=== PATIENT | female | born 1965 | race Caucasian/White ===

== ENCOUNTER 2017-09-15 01:51 | Emergency (ER) | payer OTHER, BC, SELFPAY | END 2017-09-15 03:19 | disposition home or self-care (01) | PROVIDERS: Emergency Provider Emergency Medicine; Visit Provider Emergency Medicine | DX: S01.01XA Laceration without foreign body of scalp, initial encounter (principal); E78.5 Hyperlipidemia, unspecified; W22.09XA Striking against other stationary object, initial encounter; Y93.89 Activity, other specified; Y92.59 Other trade areas as the place of occurrence of the external cause; Y99.0 Civilian activity done for income or pay; Z23 Encounter for immunization; Z79.899 Other long term (current) drug therapy | CPT/HCPCS: 12001; 70450; 90471; 90715; 96372; 99282 ==

== ENCOUNTER → 2017-09-22 | Emergency (ER) | payer OTHER, BC, SELFPAY | PROVIDERS: Emergency Provider Nurse Practitioner; Family Provider Nurse Practitioner; Visit Provider Nurse Practitioner | DX: S01.01XD Laceration without foreign body of scalp, subsequent encounter (principal) ==

== ENCOUNTER → 2017-10-06 08:07 | Outpatient (POV) | payer BC, SELFPAY | PROVIDERS: Family Provider Nurse Practitioner; Visit Provider Dermatology | DX: Z00.00 Encounter for general adult medical examination without abnormal findings (principal) ==

== ENCOUNTER → 2018-03-08 13:35 | Outpatient (CLI) | payer BC, SELFPAY ==
[2018-03-08 14:19] LABS: Basophils # 0.1 K/mm3 (0-0.2); Basophils % 0.6 % (0.1-2.0); Eosinophils # 0.1 K/mm3 (0.0-0.4); Eosinophils % 1.5 % (0.1-12.0); Hematocrit 44.7 % (37.0-47.0); Hemoglobin 14.7 g/dL (12.2-16.2); Lymphocytes # 2.6 K/mm3 (0.7-4.5); Lymphocytes % 35.8 K/mm3 (10-50); Mean Corpuscular HGB Conc 32.9 g/dL (31.8-35.4); Mean Corpuscular Hemoglobin 27.8 pg (27.0-31.2); Mean Corpuscular Volume 84.3 fl (81-99); Mean Platelet Volume 7.3 fl (7.4-10.4); Monocytes # 0.4 K/mm3 (0.1-1.0); Monocytes % 5.4 % (1.7-9.3); Neutrophils # 4.1 K/mm3 (1.8-7.8); Neutrophils % 56.7 % (37.0-80.0); Platelet Count 263 K/mm3 (142-424); Red Cell Distribution Width 12.8 % (11.5-17.5); White Blood Count 7.3 K/mm3 (4.8-10.8)
[2018-03-08 14:56] LABS: Alanine Aminotransferase 29 U/L (12-78); Albumin Level 4.2 gm/dL (3.4-5.0); Albumin/Globulin Ratio 1.1 (1.1-1.8); Alkaline Phosphatase 68 U/L (46-116); Anion Gap 16.2 mEq/L (5-15); Aspartate Amino Transferase 14 U/L (15-37); Blood Urea Nitrogen 15 mg/dL (7-18); Calcium 9.8 mg/dL (8.5-10.1); Carbon Dioxide 26 mmol/L (21.0-32.0); Chloride 102 mmol/L (98-107); Chol/HDL Ratio 7.2 (1-3.5); Cholesterol 267 mg/dL (140-200); Creatinine,Serum 0.68 mg/dL (0.55-1.02); Estimated Glomerular Filt Rate 91 ml/min (>60); GFR (African American) 110 ML/MIN (>60); Globulin 3.7 gm/dl (1.3-3.2); Glucose 115 mg/dL (74-106); HDL Cholesterol 37 mg/dL (29-89); Potassium 4.2 mmoL/L (3.5-5.1); Sodium 140 mmol/L (136-145); Total Protein,Serum 7.9 gm/dL (6.4-8.2)
[2018-03-08 14:59] LABS: Triglycerides 420 mg/dL (30-200)
== END ==
PROVIDERS: Visit Provider Dermatology
DX: L40.0 Psoriasis vulgaris (principal); Z79.899 Other long term (current) drug therapy
CPT/HCPCS: 36415; 80053; 80061; 85025; 86480

== ENCOUNTER → 2018-04-06 08:31 | Outpatient (POV) | payer BC, SELFPAY | PROVIDERS: Family Provider Nurse Practitioner; Visit Provider Dermatology | DX: Z00.00 Encounter for general adult medical examination without abnormal findings (principal) ==

== ENCOUNTER → 2018-10-10 08:27 | Outpatient (POV) | payer BC, SELFPAY | PROVIDERS: Visit Provider Dermatology | DX: Z00.00 Encounter for general adult medical examination without abnormal findings (principal) ==

== ENCOUNTER → 2018-10-19 10:38 | Outpatient (CLI) | payer BC, SELFPAY ==
--- NOTE | 2018-10-19 11:02 | XR_ITS ---
XR hand LT min 3V HISTORY: Pain ITS.REASON: OT HAND JOINT PAIN ORDERING PHYSICIAN: Ernestine Mcelroy PATIENT AGE: 53 years COMPARISON: None FINDINGS: No fracture or dislocation. No lytic or blastic change. There is normal mineralization.. There are mild osteoarthritic changes of the DIP joint of the second through fifth digits. No bony destructive process evident. IMPRESSION: Mild osteoarthritis of the DIP joints of the second through fifth digits
== END ==
PROVIDERS: PCP Nurse Practitioner Family; Visit Provider Nurse Practitioner Family
DX: M25.542 Pain in joints of left hand (principal); M25.541 Pain in joints of right hand; L40.9 Psoriasis, unspecified
CPT/HCPCS: 73130

== ENCOUNTER → 2018-11-06 08:53 | Outpatient (CLI) | payer BC, SELFPAY ==
--- NOTE | 2018-11-06 09:02 | XR_ITS ---
XR wrist RT min 3V HISTORY ITS.REASON: RT WRIST PAIN ORDERING PHYSICIAN: Ernestine Mcelroy PATIENT AGE: 53 years Comparison: None FINDINGS: No fracture or dislocation. No lytic or blastic change. There is normal mineralization.. The joint spaces are well-preserved. No significant degenerative/arthritic changes. No erosive changes evident.. IMPRESSION: Negative wrist
== END ==
PROVIDERS: PCP Nurse Practitioner Family; Visit Provider Nurse Practitioner Family
DX: M25.531 Pain in right wrist (principal)
CPT/HCPCS: 73110

== ENCOUNTER → 2019-04-12 10:21 | Outpatient (CLI) | payer BC, SELFPAY ==
[2019-04-12 11:06] LABS: Basophils # 0.1 K/mm3 (0-0.2); Basophils % 0.6 % (0.1-2.0); Eosinophils # 0.1 K/mm3 (0.0-0.4); Eosinophils % 1.6 % (0.1-12.0); Hematocrit 43.3 % (37.0-47.0); Hemoglobin 13.5 g/dL (12.2-16.2); Lymphocytes # 2.3 K/mm3 (0.7-4.5); Lymphocytes % 29.1 % (10-50); Mean Corpuscular HGB Conc 31.2 g/dL (31.8-35.4); Mean Corpuscular Hemoglobin 27.7 pg (27.0-31.2); Mean Platelet Volume 7.3 fl (7.4-10.4); Monocytes # 0.4 K/mm3 (0.1-1.0); Monocytes % 5.3 % (1.7-9.3); Neutrophils # 4.9 K/mm3 (1.8-7.8); Neutrophils % 63.4 % (37.0-80.0); Platelet Count 317 K/mm3 (142-424); Red Blood Count 4.87 M/mm3 (4.20-5.40); Red Cell Distribution Width 13.9 % (11.5-17.5); White Blood Count 7.7 K/mm3 (4.8-10.8)
[2019-04-12 12:15] LABS: Alanine Aminotransferase 35 U/L (12-78); Albumin Level 3.8 gm/dL (3.4-5.0); Albumin/Globulin Ratio 1.1 (1.1-1.8); Alkaline Phosphatase 63 U/L (46-116); Anion Gap 15.5 mEq/L (5-15); Aspartate Amino Transferase 27 U/L (15-37); Bilirubin,Total 0.8 mg/dL (0.2-1.0); Blood Urea Nitrogen 12 mg/dL (7-18); Calcium 9.6 mg/dL (8.5-10.1); Carbon Dioxide 25 mmol/L (21.0-32.0); Chloride 102 mmol/L (98-107); Chol/HDL Ratio 6.5 (1-3.5); Cholesterol 272 mg/dL (140-200); Creatinine,Serum 0.69 mg/dL (0.55-1.02); Estimated Glomerular Filt Rate 89 ml/min (>60); GFR (African American) 107 ML/MIN (>60); Globulin 3.5 gm/dl (1.3-3.2); Glucose 135 mg/dL (74-106); HDL Cholesterol 42 mg/dL (29-89); LDL Cholesterol 170 mg/dL (0-130); Potassium 4.5 mmoL/L (3.5-5.1); Sodium 138 mmol/L (136-145); Total Protein,Serum 7.3 gm/dL (6.4-8.2); Triglycerides 302 mg/dL (30-200); VLDL Cholesterol 60 mg/dL (0-40)
[2019-04-17 12:56] LABS: QuantiFERON-TB Gold Plus Negative (Negative)
== END ==
PROVIDERS: Visit Provider Dermatology
DX: L40.0 Psoriasis vulgaris (principal); Z79.899 Other long term (current) drug therapy
CPT/HCPCS: 36415; 80053; 80061; 85025; 86480

== ENCOUNTER → 2019-05-02 14:48 | Outpatient (CLI) | payer BC, SELFPAY ==
[2019-05-02 16:06] VITALS: BMI 38.4
== END ==
PROVIDERS: PCP Nurse Practitioner Family; Visit Provider Nurse Practitioner Family
DX: Z71.3 Dietary counseling and surveillance (principal); E11.9 Type 2 diabetes mellitus without complications
CPT/HCPCS: 97802

== ENCOUNTER → 2019-05-28 11:05 | Outpatient (CLI) | payer BC, SELFPAY ==
--- NOTE | 2019-05-28 11:23 | XR_ITS ---
PROCEDURE: XR HAND RT MIN 3V CLINICAL INDICATION: SWELLING OF FINGER RT HAND, HX OSTEOMYELITIS COMPARISON: [id number] XR hand LT min 3V from 10/19/2018 WRISTCMRT XR wrist RT min 3V from 11/06/2018 FINDINGS: No fracture or dislocation. No lytic or blastic change. There is normal mineralization. There are minor osteoarthritic changes of the 2nd through 5th DIP joints Other findings:None. IMPRESSION: Moderate osteoarthritis of the DIP joints of the digits, no acute finding Dictated by: Barrett Martinez MD 05/28/2019 11:57 Signed by: <Electronically signed by Barrett Martinez MD in [place]> 05/28/2019 11:57
[2019-05-28 11:37] LABS: Basophils % 0.5 % (0.1-2.0); Eosinophils # 0.1 K/mm3 (0.0-0.4); Eosinophils % 0.9 % (0.1-12.0); Hematocrit 38.3 % (37.0-47.0); Hemoglobin 12.4 g/dL (12.2-16.2); Lymphocytes # 2.4 K/mm3 (0.7-4.5); Lymphocytes % 32.6 % (10-50); Mean Corpuscular HGB Conc 32.5 g/dL (31.8-35.4); Mean Corpuscular Hemoglobin 27.7 pg (27.0-31.2); Mean Corpuscular Volume 85.4 fl (81-99); Mean Platelet Volume 6.7 fl (7.4-10.4); Monocytes # 0.4 K/mm3 (0.1-1.0); Monocytes % 4.7 % (1.7-9.3); Neutrophils # 4.6 K/mm3 (1.8-7.8); Neutrophils % 61.3 % (37.0-80.0); Platelet Count 289 K/mm3 (142-424); Red Blood Count 4.49 M/mm3 (4.20-5.40); Red Cell Distribution Width 13.3 % (11.5-17.5); White Blood Count 7.5 K/mm3 (4.8-10.8)
== END ==
PROVIDERS: PCP Nurse Practitioner Family; Visit Provider Nurse Practitioner Family
DX: M25.441 Effusion, right hand (principal); Z87.39 Personal history of other diseases of the musculoskeletal system and connective tissue
CPT/HCPCS: 36415; 73130; 85025

== ENCOUNTER → 2019-10-10 12:42 | Outpatient (CLI) | payer BC, SELFPAY ==
--- NOTE | 2019-10-10 12:53 | US_ITS ---
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 Welding: Polina Shell RVT Indications Claudication: Bilaterally Rest Pain: Bilaterally Numbness/Tingling Edema DECREASED PULSES SHEEBA Risk Factors Hyperlipidemia Diabetes History of Smoking Pressures/Indices Right Indices Left Indices Brachial 176.00 mmHg Brachial 193.00 mmHg Low Thigh 185.00 mmHg 0.96 Low Thigh 191.00 mmHg 0.99 Calf 207.00 mmHg 1.07 Calf 193.00 mmHg 1.00 Ankle(PT) 201.00 mmHg 1.04 Ankle(PT) 211.00 mmHg 1.09 Ankle(DP) 186.00 mmHg 0.96 Ankle(DP) 195.00 mmHg 1.01 Digit 132.00 mmHg 0.68 Digit 126.00 mmHg 0.65 Findings RT LAURIE:1.04 LT LAURIE:1.09 RT TBI:0.68 LT TBI:0.65 NORMAL PULSES BILATERAL NORMAL WAVEFORMS BILATERAL Conclusion No evidence significant arterial disease throughout the right and left lower extremities as evidenced by normal resting PVR waveforms and normal resting indices. Electronically signed by : Barrett Martinez MD 10/10/2019 17:16:54
== END ==
PROVIDERS: PCP Nurse Practitioner Family; Visit Provider Nurse Practitioner Family
DX: R09.89 Other specified symptoms and signs involving the circulatory and respiratory systems (principal)
CPT/HCPCS: 93923

== ENCOUNTER → 2019-10-16 08:08 | Outpatient (POV) | payer BC, SELFPAY | PROVIDERS: Visit Provider Dermatology | DX: Z00.00 Encounter for general adult medical examination without abnormal findings (principal) ==

== ENCOUNTER → 2020-01-10 07:56 | Outpatient (CLI) | payer BC, SELFPAY ==
--- NOTE | 2020-01-10 07:58 | US_ITS ---
PROCEDURE: US LIVER CLINICAL INDICATION: ELEVATED LIVER FUNCTION COMPARISON: No exams were available for comparison FINDINGS: PANCREAS: Of the pancreas is poorly demonstrated as there was difficulty penetrating the hyperechoic liver. CT may provide further evaluation LIVER: The liver is enlarged with increased echogenicity. There is poor definition of the liver due to the hyperechogenicity. This would suggest diffuse fatty liver infiltration. RIGHT KIDNEY: There is cortical scarring of the right kidney. No hydronephrosis. GALLBLADDER: Prior cholecystectomy. Common bile duct is normal at 4 mm. IMPRESSION: There is diffuse increased echogenicity of an enlarged liver consistent with hepatic steatosis with a pattern megaly. The pancreas is poorly demonstrated. Consider CT without and with contrast for further evaluation. Dictated by: Barrett Martinez MD 01/10/2020 17:14 Electronically signed by Barrett Martinez MD in [place] 01/10/2020 17:14
== END ==
PROVIDERS: PCP Nurse Practitioner Family; Visit Provider Nurse Practitioner Family
DX: R74.8 Abnormal levels of other serum enzymes (principal)
CPT/HCPCS: 76705

== ENCOUNTER → 2020-01-17 09:29 | Outpatient (CLI) | payer BC, SELFPAY ==
--- NOTE | 2020-01-17 09:47 | CT_ITS ---
PROCEDURE: CT ABDOMEN WO/W CON CLINICAL HISTORY: HEPATOMEGLY Abnormal liver function tests, abnormal ultrasound COMPARISON: No exams were available for comparison TECHNIQUE: 75 mL Optiray 350. Study is performed without and with contrast with hemangioma protocol Axial images obtained with sagittal and coronal reformats. All CT scans at the facility use one or more dose reduction, viz: automated exposure control, ma/kV adjustment per patient size (including targeted exams where dose is matched to indication, i.e. head), or iterative reconstruction technique. FINDINGS: Lung bases clear. There is diffuse hepatic steatosis with an enlarged liver which measures 23 cm cephalad caudad and 23 cm AP. There has been a prior cholecystectomy. No focal liver lesion is evident. The spleen, adrenal glands, and pancreas have an unremarkable appearance. Unenhanced images show no evidence of renal or ureteral calculi. No renal mass or perinephric fluid collection. There is some mild cortical scarring of the right kidney. No intestinal obstruction or free air. No acute bony abnormalities of the visualized bony elements. The pelvis was not included on the exam. There are atherosclerotic changes involving the aorta. There is high-grade stenosis at the ostium of the celiac artery. The definite degree of narrowing is not readily discernible on this non angiographic study but felt to be greater than 50 percent. IMPRESSION: 1. Hepatomegaly with hepatic steatosis. 2. 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 Mild cortical scarring of the right kidney Dictated by: Barrett Martinez MD 01/18/2020 08:53 Electronically signed by Barrett Martinez MD in [place] 01/18/2020 08:53
[2020-01-17 10:01] LABS: Blood Urea Nitrogen 12 mg/dl (7-17); Estimated Glomerular Filt Rate 87 ml/min (>60); GFR (African American) 105 ML/MIN (>60)
== END ==
PROVIDERS: PCP Nurse Practitioner Family; Visit Provider Nurse Practitioner Family
DX: R16.0 Hepatomegaly, not elsewhere classified (principal)
CPT/HCPCS: 36415; 74170; 82565; 84520; Q9967

== ENCOUNTER → 2020-01-24 10:10 | Outpatient (CLI) | payer BC, SELFPAY ==
--- NOTE | 2020-01-24 10:15 | CT_ITS ---
Procedure: CT ANGIO ABDOMEN CLINICAL HISTORY: CELIAC ARTERY STENOSIS Abdominal pain COMPARISON: CT ABDOMEN WO/W CON from 01/17/2020 TECHNIQUE: IV Contrast: 100ml Optiray 350 Axial images obtained with sagittal and coronal reformats. All CT scans at the facility use one or more dose reduction, viz: automated exposure control, ma/kV adjustment per patient size (including targeted exams where dose is matched to indication, i.e. head), or iterative reconstruction technique. FINDINGS: There is high-grade stenosis involving the ostium of the celiac artery. This is short segment and is estimated to be 75%. The superior mesenteric artery has an unremarkable appearance. The inferior mesenteric artery is patent and has an unremarkable appearance. There is a single renal artery to each kidney with no significant stenosis. No evidence of aortic aneurysm or dissection. Scattered calcific plaque is present involving the aorta and iliac vessels but no significant stenosis is apparent. Lung bases are clear. There is hepatomegaly with diffuse hepatic steatosis. Cortical scarring is present involving the right kidney. The spleen, adrenal glands, and pancreas and left kidney has an unremarkable appearance. No intestinal obstruction or free air. No focal inflammatory change. No acute bony anomalies. 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 Hepatomegaly with fatty liver Right renal cortical scarring Dictated by: Barrett Martinez MD 01/26/2020 08:01 Electronically signed by Barrett Martinez MD in [facility] 01/26/2020 08:01
== END ==
PROVIDERS: PCP Nurse Practitioner Family; Visit Provider Nurse Practitioner Family
DX: I77.4 Celiac artery compression syndrome (principal)
CPT/HCPCS: 74175; Q9967

== ENCOUNTER → 2020-06-17 08:06 | Outpatient (POV) | payer BC, SELFPAY ==
[2020-06-21 18:11] LABS: QuantiFERON-TB Gold Plus Negative (Negative)
== END ==
PROVIDERS: Visit Provider Dermatology
DX: L40.0 Psoriasis vulgaris (principal); Z79.899 Other long term (current) drug therapy
CPT/HCPCS: 36415; 86480

== ENCOUNTER → 2020-09-05 15:03 | Outpatient (CLI) | payer BC, SELFPAY ==
--- NOTE | 2020-09-05 15:08 | XR_ITS ---
PROCEDURE: XR SHOULDER LT MIN 2V CLINICAL INDICATION: INJURY TO LT SHOULDER, INITIAL ENCOUNTER COMPARISON: No exams were available for comparison FINDINGS: No fracture or dislocation. No lytic or blastic change. There is normal mineralization. There are minimal osteoarthritic changes of the left shoulder. Other findings:None. IMPRESSION: Minimal osteoarthritic change of the glenohumeral joint otherwise negative Dictated by: Barrett Martinez MD 09/05/2020 15:17 Barrett Martinez MD in [place] 09/05/2020 15:17
== END ==
PROVIDERS: PCP Nurse Practitioner Family; Visit Provider Nurse Practitioner Family
DX: S49.92XA Unspecified injury of left shoulder and upper arm, initial encounter (principal)
CPT/HCPCS: 73030

== ENCOUNTER → 2020-10-02 09:14 | Outpatient (CLI) | payer BC, SELFPAY ==
--- NOTE | 2020-10-02 09:16 | MR_ITS ---
PROCEDURE: MR SHOULDER LT WO CON CLINICAL INDICATION: DECREASED RANGE OF MOTION, PAIN Pain and decreased range of motion COMPARISON: CR XR SHOULDER LT MIN 2V from 09/05/2020 TECHNIQUE: Routine multiplanar multi echo sequences are performed without gadolinium enhancement. FINDINGS: No evidence of rotator cuff tear. There is slight thickening of the supraspinatus tendon with slight increased T2 signal suggesting tendinopathy/tendinosis. The infraspinatus, subscapularis, and teres minor tendons appear intact. Bicipital tendon is in place although there is some increased T2 signal involving the superior aspect of the bicipital tendon suspicious for a split tear. This signal is linear in nature. Small amount fluid is present in the bicipital tendon sheath. Motion artifact noted on the axial images which somewhat obscures fine detail of the labrum. There is some heterogeneous somewhat irregular signal intensity of the anterior and superior glenoid labrum suspicious for a SLAP tear. In addition, there is increased T2 signal involving the medial aspect of the glenoid labrum suspicious for a bony Bankart lesion. There is a small shoulder joint effusion. There is increased T2 signal involving the humeral head posteriorly consistent with the Hill-Sachs lesion. IMPRESSION: 1. Tendinopathy/tendinosis of the supraspinatus tendon. No evidence of rotator cuff tear. 2. Small shoulder joint effusion with and osseous Bankart lesion along with Hill-Sachs lesion. These findings would suggest a prior anterior shoulder dislocation. There is also irregularity of the superior and anterior glenoid labrum consistent with a SLAP tear. 3. Split tear of the bicipital tendon in the region the bicipital groove. Dictated by: Barrett Martinez MD 10/20/2020 11:40 Barrett Martinez MD in [place] 10/20/2020 11:40
== END ==
PROVIDERS: PCP Nurse Practitioner Family; Visit Provider Nurse Practitioner Family
DX: M25.512 Pain in left shoulder (principal); M25.612 Stiffness of left shoulder, not elsewhere classified; S49.92XD Unspecified injury of left shoulder and upper arm, subsequent encounter
CPT/HCPCS: 73221

== ENCOUNTER 2020-11-12 08:00 | Outpatient (RCR) | payer BC, SELFPAY ==
--- NOTE | 2020-10-08 10:50 | HMH.OTOPEV ---
OT Inpatient Evaluation Rehab OT Outpatient Eval Start: 10/08/20 10:26 Freq: Status: Active Protocol: Document 10/08/20 10:26 [email or web address] (Rec: 10/08/20 10:46 [facility] [id number]) Electronically Signed By Vasile Leija OT 10/08/20 10:26 Outpatient Therapy Subjective History Subjective History Pt is a 55 year old female who reports to therapy for initial evaluation to L shoulder. Pt reports on 08/23 she had a fall and tried to catch herself with both arms resulting in a L shoulder injury. Since fall, pt has had constant pain and decreased AROM/strength at left shoulder. Pt has a past medical history of HTN, Psoriatic AR, Diabetes Type 2, and hyperlipidemia. Pt will continue to be seen twice a week in order to address left shoulder deficits. Chief Complaint Pain,Stiff,Weakness Symptom Type Ache,Throb,Sharp,Dull Symptoms Relieved By Nothing Symptoms Aggravated By Physical Activity,Lifting Prior Functional Limitations None Current Functional Limitations Reaching,Lifting,Housework, Dressing,Driving,Sleeping, Recreation Activity Symptom Description Constant but Variable Level of pain today (0-10) 4 Pain scale - at its best (0-10) 4 Pain scale - at its worst (0-10) 10 Shoulder/Elbow Eval Shoulder Objective Measurements Shoulder ROM Left Shoulder Abduction Active Range of 65 degrees Motion (degrees) Shoulder Flexion Active Range of Motion 105 degrees (degrees) Query Text: Shoulder External Rotation Active Range 55 degrees of Motion (degrees) Shoulder Internal Rotation Active Range 30 degrees of Motion (degrees) pain with active ROM shoulder exam left standard pain with passive ROM shoulder exam left standard decreased ROM shoulder exam standard left Shoulder MMT Shoulder Abduction Strength Grade 3+ Fair+ Shoulder Extension Strength Grade 3- Fair- Shoulder Flexion Strength Grade 4- Good- Shoulder External Rotation Strength 3- Fair- Grade Shoulder Internal Rotation Strength 3- Fair- Grade Shoulder Strength Patient Testing Sitting Position Shoulder Special
== END 2020-11-12 08:05 | disposition home or self-care (01) ==
LOC: OT 08:00
PROVIDERS: PCP Nurse Practitioner Family; Visit Provider Nurse Practitioner Family
DX: M25.612 Stiffness of left shoulder, not elsewhere classified (principal)
CPT/HCPCS: 97014; 97110; 97166; G0283

== ENCOUNTER → 2020-12-29 08:56 | Outpatient (CLI) | payer BC, SELFPAY ==
--- NOTE | 2020-12-29 09:02 | XR_ITS ---
PROCEDURE: XR HAND RT MIN 3V CLINICAL INDICATION: SHEEBA HAND SWELLING COMPARISON: CR [id number] XR hand LT min 3V from 10/19/2018 CR XR HAND RT MIN 3V from 05/28/2019 FINDINGS: No acute fractures or dislocations. Bone density is normal. There is minor juxta-articular osteopenia noted. Minor osteoarthritic changes noted at the metatarsophalangeal joints. There is evidence of minor overhanging margins with the erosions noted at the distal interphalangeal joint, predominantly of the 5th distal interphalangeal joint. Early erosions are noted in the medial aspect of the proximal phalanges. IMPRESSION: Findings are suggestive of arthropathy, predominantly at the 4th and 5th DIP joints. Dictated by: Beba Patel 12/29/2020 17:42 Beba Patel in [place] 12/29/2020 17:42
--- NOTE | 2020-12-29 09:02 | XR_ITS ---
PROCEDURE: XR HAND LT MIN 3V CLINICAL INDICATION: SHEEBA HAND SWELLING COMPARISON: CR [id number] XR hand LT min 3V from 10/19/2018 CR XR HAND RT MIN 3V from 05/28/2019 FINDINGS: No acute fractures or dislocations. There is evidence of loss of joint space, and overhanging margins of the distal interphalangeal joints noted at the 4th, and 5th DIP joints. Bone density is otherwise unremarkable. Possible erosion is noted at the head of the proximal phalanx of the 1st digit. No significant soft tissue abnormality. IMPRESSION: Findings are suggestive of arthropathies. No acute fractures or dislocations. Dictated by: Beba Patel 12/29/2020 17:44 Beba Patel in [place] 12/29/2020 17:44
== END ==
PROVIDERS: PCP Nurse Practitioner Family; Visit Provider Nurse Practitioner Family
DX: M79.642 Pain in left hand (principal); M79.641 Pain in right hand; M79.89 Other specified soft tissue disorders
CPT/HCPCS: 73130

== ENCOUNTER → 2021-02-17 14:52 | Outpatient (CLI) | payer BC, SELFPAY ==
--- NOTE | 2021-02-17 14:57 | CA_ITS ---
APPROVED REPORT Right Lower Extremity Venous Study for DVT. Veterinarian Poultry: Polina Shell RVT Indications Lower Extremity Pain: Right History of Smoking PAIN RT CALF X 1 DAY Vein Imaging CFV (R): compressive, spontaneous, phasic, augmentation FEM (R): compressive, spontaneous, phasic, augmentation POP (R): compressive, spontaneous, phasic, augmentation PTV (R): Compressible GSV (R): Compressible Peroneals (R):Compressible GAS (R): Compressible Findings Study suggests no evidence of DVT of the right lower extremity. Study suggests no evidence of SVT of the right lower extremity. Conclusion Study suggests no evidence of DVT of the right lower extremity. Study suggests no evidence of SVT of the right lower extremity. Critical Notification Physician Notified Date: 02/17/2021 Time: 15:28 Physician Name: Irma Mcelroy's office Electronically signed by : Barrett Martinez MD 02/17/2021 16:29:25
--- NOTE | 2021-02-17 15:22 | XR_ITS ---
PROCEDURE: XR KNEE RT 3V CLINICAL INDICATION: ACUTE PAIN OF RT KNEE, SWELLING OF RT KNEE JOINT COMPARISON: No exams were available for comparison FINDINGS: No fracture or dislocation. No lytic or blastic change. There is normal mineralization. The joint spaces are well-preserved. No significant degenerative/arthritic changes. No erosive changes evident. Other findings:There is increased density in the suprapatellar region which may be related to knee joint effusion. IMPRESSION: Possible knee joint effusion otherwise negative Dictated by: Barrett Martinez MD 02/17/2021 16:03 Barrett Martinez MD in [place] 02/17/2021 16:03
== END ==
PROVIDERS: PCP Nurse Practitioner Family; Visit Provider Nurse Practitioner Family
DX: M79.661 Pain in right lower leg (principal); M79.89 Other specified soft tissue disorders; M25.561 Pain in right knee; M25.461 Effusion, right knee
CPT/HCPCS: 73562; 93971

== ENCOUNTER → 2023-01-12 15:43 | Outpatient (CLI) | payer MEDICARE, BC, SELFPAY ==
--- NOTE | 2023-01-12 15:52 | MM_ITS ---
PROCEDURE INFORMATION: Exam: MG Bilateral Screening 3D Mammography Exam date and time: 01/12/2023 3:48 PM Age: 57 years old Clinical indication: Screening mammogram TECHNIQUE: Imaging protocol: Bilateral Screening tomosynthesis and 2D mammography including computer-aided detection (CAD) when performed. COMPARISON: 1. MG DMSB DIG MAMM-SCREEN SHEEBA 07/24/2015 9:01 AM 2. MG DMSB DIGITAL MAMM-SCREEN BILATERAL 06/12/2010 8:35 AM 3. MG DIGMAMMDX MAMMOGRAM DX-ENGINE SERVICE REPAIRER N/C 06/10/2009 9:13 AM 4. MG DIGMAMMDX MAMMOGRAM DX-ENGINE SERVICE REPAIRER N/C 12/19/2008 9:13 AM FINDINGS: MAMMOGRAPHY: Breast composition: There are scattered areas of fibroglandular density. Mass: None. Architectural distortion: No new or suspicious architectural distortion. Calcifications: Calcifications within the upper outer posterior right breast should be assessed with spot MAGNIFICATION views in CC/ML projection for morphologic characterization. Asymmetric density: No new or suspicious asymmetric density is present Skin thickening: None. Axillary adenopathy: None. IMPRESSION: Calcifications within the upper outer posterior right breast should be assessed with spot MAGNIFICATION views in CC/ML projection for morphologic characterization. ASSESSMENT: BI-RADS category 0: Incomplete-need additional imaging evaluation
== END ==
PROVIDERS: PCP Nurse Practitioner Family; Visit Provider Nurse Practitioner Family
DX: Z12.31 Encounter for screening mammogram for malignant neoplasm of breast (principal)
CPT/HCPCS: 77063; 77067

== ENCOUNTER → 2023-01-21 09:06 | Outpatient (CLI) | payer MEDICARE, BC, SELFPAY ==
--- NOTE | 2023-01-21 09:10 | XR_ITS ---
FINAL REPORT TECHNIQUE: Bone densitometry calculations of the lumbar spine and right hip were obtained. CLINICAL HISTORY: . osteoporosis FINDINGS: DEXA BONE DENSITY AXIAL SKELETON Using L1-4, the bone mineral density of the spine is 0.901 g/cm2, corresponding to T-score of -1.3. Using the right hip, the bone mineral density of the femoral neck is 0.821 g/cm2, corresponding to a T-score of -0.3. NOTE: T-score: Standard deviation compared with peak bone mass of young adult mean. *Following the recommendations of the International Society of Bone densitometry, classification of hip BMD is based on the lower of two T-scores; total hip or femoral neck. IMPRESSION: Diminished bone mineral density of the lumbar spine and right hip consistent with low bone density. FRAX 10 year fracture risk is 0.4% for a hip fracture and 12% for a major osteoporotic fracture. Reviewed, Interpreted and Dictated by Lloyd Braswell III, MD Transcribed by Lindsay De Leon Authenticated and [facility]
== END ==
PROVIDERS: PCP Nurse Practitioner Family; Visit Provider Nurse Practitioner Family
DX: Z78.0 Asymptomatic menopausal state (principal); Z13.820 Encounter for screening for osteoporosis
CPT/HCPCS: 77080

== ENCOUNTER → 2023-02-11 14:11 | Outpatient (CLI) | payer MEDICARE, BC, SELFPAY ==
--- NOTE | 2023-02-11 14:18 | MM_ITS ---
PROCEDURE INFORMATION: Exam: MG Right Diagnostic Breast Tomosynthesis Exam date and time: 02/11/2023 2:21 PM Age: 57 years old Clinical indication: Patient recalled on the basis of a screening mammogram for further evaluation; Right breast; calcifications TECHNIQUE: Imaging protocol: Right Diagnostic tomosynthesis and 2D mammography including computer-aided detection (CAD) when performed. Unilateral or bilateral exam. COMPARISON: 1. MG MM DIG SCREENING MAMM BI W/CAD 01/12/2023 3:48 PM 2. MG DMSB DIG MAMM-SCREEN SHEEBA 07/24/2015 9:01 AM FINDINGS: MAMMOGRAPHY: Digital diagnostic magnification views of the posterior right upper outer quadrant demonstrate a cluster of benign dystrophic calcifications. IMPRESSION: No mammographic evidence of malignancy. Benign calcifications in the right breast.Annual bilateral mammographic screening is recommended unless otherwise clinically indicated. ASSESSMENT: BI-RADS Category 2: Benign
== END ==
PROVIDERS: PCP Nurse Practitioner Family; Visit Provider Nurse Practitioner Family
DX: R92.8 Other abnormal and inconclusive findings on diagnostic imaging of breast (principal)
CPT/HCPCS: 77061; 77065; G0279

== ENCOUNTER → 2023-07-04 12:06 | Outpatient (CLI) | payer MEDICARE, BC, SELFPAY ==
[2023-07-04 11:17] LABS: Basophils % 0.4 % (0.1-2.0); Eosinophils # 0.1 K/mm3 (0.0-0.4); Eosinophils % 0.8 % (0.1-12.0); Hematocrit 38.8 % (37.0-47.0); Hemoglobin 12.7 g/dL (12.2-16.2); Lymphocytes # 3.1 K/mm3 (0.7-4.5); Lymphocytes % 32.6 % (10-50); Mean Corpuscular HGB Conc 32.9 g/dL (31.8-35.4); Mean Corpuscular Hemoglobin 27.6 pg (27.0-31.2); Mean Corpuscular Volume 83.9 fl (81-99); Mean Platelet Volume 9.4 fl (7.4-10.4); Monocytes # 0.5 K/mm3 (0.1-1.0); Monocytes % 5.3 % (1.7-9.3); Neutrophils # 5.8 K/mm3 (1.8-7.8); Neutrophils % 60.8 % (37.0-80.0); Platelet Count 305 K/mm3 (142-424); Red Blood Count 4.62 M/mm3 (4.20-5.40); Red Cell Distribution Width 15.8 % (11.5-17.5); White Blood Count 9.5 K/mm3 (4.8-10.8)
[2023-07-04 12:08] LABS: Hemoglobin A1C 5.5 % (4.0-6.0)
[2023-07-04 13:05] LABS: Chol/HDL Ratio 4.6 (1-3.5); Cholesterol 221 mg/dl (140-200); HDL Cholesterol 48 mg/dl (40-60); Triglycerides 293 mg/dl (30-150); VLDL Cholesterol 59 mg/dL (0-40)
[2023-07-04 13:16] LABS: Direct LDL Cholesterol 109.92 mg/dL (100-129)
[2023-07-04 13:59] LABS: Vitamin B12 726 pg/mL (239-931)
[2023-07-04 16:05] LABS: Ferritin 78.4 ng/ml (11.1-264)
== END ==
PROVIDERS: PCP Nurse Practitioner Family; Visit Provider Nurse Practitioner Family
DX: D50.9 Iron deficiency anemia, unspecified (principal); E11.9 Type 2 diabetes mellitus without complications; E78.5 Hyperlipidemia, unspecified; Z79.84 Long term (current) use of oral hypoglycemic drugs
CPT/HCPCS: 80061; 82607; 82728; 83036; 85025

== ENCOUNTER 2023-10-04 13:48 | Outpatient (CLI) | payer MEDICARE, BC, SELFPAY ==
[2023-10-04 13:43] LABS: Hemoglobin A1C 5.3 % (4.0-6.0)
[2023-10-04 14:11] LABS: Chol/HDL Ratio 5.2 (1-3.5); Cholesterol 243 mg/dl (140-200); HDL Cholesterol 47 mg/dl (40-60); Triglycerides 330 mg/dl (30-150); VLDL Cholesterol 66 mg/dL (0-40)
[2023-10-04 14:31] LABS: Direct LDL Cholesterol 131.69 mg/dL (100-129)
== END 2023-10-04 23:59 ==
LOC: LAB.DROPOF 13:49
PROVIDERS: PCP Nurse Practitioner Family; Visit Provider Nurse Practitioner Family
DX: E11.9 Type 2 diabetes mellitus without complications (principal); E78.5 Hyperlipidemia, unspecified; Z79.84 Long term (current) use of oral hypoglycemic drugs
CPT/HCPCS: 80061; 83036

== ENCOUNTER 2023-10-27 07:01 | Outpatient (CLI) | payer MEDICARE, BC, SELFPAY ==
[2023-10-27] VITALS (9 sets, daily range): BP systolic 113–150; BP diastolic 66–89; PULSE 60–73; RESP 16–18; TEMP 36.4; O2SAT 97–100; BMI 32.9
--- NOTE | 2023-10-27 07:01 | CT_ITS ---
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 A noncontrast coronary calcium scan was performed. A CT attenuation threshold of 130 Hounsfield units (HU) was used for the detection of calcium in contiguous voxels of 1 sq mm in area to be counted as individual lesions. Bolus tracking in the ascending aorta with a threshold of 180 HU was performed. Immediately afterwards, ECG synchronized cardiac CT was then performed from the cardiac base to apex using retrospective gating with ECG tube current modulation. A total of 85 mL of Isovue 370 mg/mL contrast medium was administered at 5 mL/sec followed by a saline flush using a biphasic injection protocol. A tube voltage of 120 KVp was used. The average heart rate at the time of acquisition was 67 bpm and regular. Image Reconstruction Transaxial images were reconstructed at 0.67 mm slide thickness. Data was reviewed interactively on an advanced workstation capable of 2 and 3-dimensional displays in all conventional reconstruction formats, including multiplanar reformations, maximum intensity projections, curved multiplanar reformations, and volume rendered reconstructions. When applicable, selected routine images describing the relevant coronary anatomy and pathology were saved and sent to PACS. Complications None Technical Quality Overall image quality was technically difficult. Coronary artery opacification was suboptimal. Total DLP (Dose-Length Product) is 1255.1 mGy-cm. The reported value represents the total of one or more individual components during the CT acquisition of this date and at this time, and as such, the same value may appear in more than one CT report depending on the interpreting/reporting physicians. COMPARISON None FINDINGS CT Coronary Calcium Scoring LMA (Left Main Artery) = 36 LAD (Left Anterior Descending) = 222 LCX (Left Coronary Circumflex) = 111 RCA (Right Coronary Artery) = 106 Total Calcium Score = 475 using the AJ-130 method. The observed calcium score of 475 is at 98th percentile for subjects of the same age, sex, and race/ethnicity. The interpretation of the calcium heart score is based on the following continuum*: 0 = no calcified plaque detected (risk of coronary artery disease is very low ??? less than 5%) 1-10 = calcium detected in extremely minimal levels (risk of coronary diseases is still low ??? less than 10%) 11-100 = mild levels of plaque detected with certainty (mild or minimal narrowing of heart arteries is likely) 101-400 = definite,at least moderate levels of plaque detected (relatively high risk of a heart attack within 3-5 years) >401-999 = extensive levels of plaque detected (high risk of heart attack, high levels of vascular disease are present, high likelihood of at least one significant coronary narrowing) *The calcium heart score quantifies the burden of coronary calcification/plaque in the coronary arteries. The calcium heart score is not able to evaluate the presence or burden of non-calcified (i.e. soft) plaque. There is also identifiable calcification in the ascending and descending thoracic aortic valve, and mitral annulus. Coronary CT Angiography The coronary arterial system is right dominant. Quantitative Stenosis Grading: Left Main (LM): The left main originates normally from the left sinus of Valsalva. The LM bifurcates into the left anterior descending artery and left circumflex artery. There is calcification in the distal LM, but without luminal stenosis. Left Anterior Descending (LAD) and Diagonal Branches: The LAD gives off 2 diagonal branch(es). There is mixed plaque in the proxiaml and mid-LAD with mild 30-50% luminal stenosis. There is no evidence of LAD bridge. Left Circumflex (LCX) and Obtuse Marginals (OM): The LCX gives off 1 Obtuse Marginal (OM) branch(es). In the visualized segments, there is calcification in the LCX and the OM, but grossly no significant luminal stenosis is noted. However, there is a segment in the mid-LCX and proximal OM that is not visualized on this CCTA. Right Coronary Artery (RCA): The RCA originates normally from the right sinus of Valsalva. The RCA gives off a posterior descending artery (PDA) and posterolateral (PL) branches. In the visualized segments, there is calcification in the proximal and mid-RCA with indeterminate severity of stenosis due to significant motion. There are also segments of the proximal RCA that are not well visualized. Non-Coronary Cardiac Findings: Analysis of the left ventricular (LV) structure and function was performed after 3-D reconstruction of the LV from axial images, with user-corrected automatic contouring for assessment of LV volumes and user-defined reconstruction from oblique planes for measurement of 3-D cardiac structure and function. LVEDV: 160 mL LVESV: 79 mL SV: 81 mL LVEF: 51% -The left ventricle is normal in size with low-normal left ventricular systolic function. There is mild hypokinesis of the septal LV wall. -There is no left atrial appendage filling defect. Two right pulmonary veins and two left pulmonary veins drain normally into the left atrium. -No pericardial thickening or calcification. -Central and branch pulmonary arteries in the [id number] are unremarkable. -Thoracic aorta within the visualized thoracic aortic-branches in the [id number] is unremarkable. Extracardiac Structures No significant extra-cardiac findings. Note, however, that this study is focused on the cardiac findings. IMPRESSION -Technically difficult study due to significant motion. -Presence of coronary calcification with an Agatston score = 475 using the AJ-130 method. -The observed calcium score of 475 is at 98th percentile for subjects of the same age, sex, and race/ethnicity. -Indeterminate presence of flow-limiting atherosclerosis of the coronary arteries due to technically difficult study. -The left ventricle is normal in size with low-normal left ventricular systolic function. There is mild hypokinesis of the septal LV wall. -Overall, this study is non-diagnostic. If clinically indicated, assessment of coronary disease with alternative modalities is recommended. *Recommendations: CAD RADS 0: Reassurance. Consider non-atherosclerotic causes of chest pain. CAD RADS 1: Consider non-atherosclerotic causes of chest pain. Consider preventive therapy and risk factor modification. CAD RADS 2: Consider non-atherosclerotic causes of chest pain. Consider preventive therapy and risk factor modification, particularly for patients with nonobstructive plaque in multiple segments. CAD RADS 3: Consider further functional testing. Consider symptom-guided anti-ischemic and preventive pharmacotherapy as well as risk factor modification per published guideline statements. CAD RADS 4A: Consider further functional testing or invasive coronary angiography with revascularization per published guideline statements. Consider symptom-guided anti-ischemic and preventive pharmacotherapy as well as risk factor modification per published guideline statements. CAD RADS 4B: Invasive coronary angiography recommended with revascularization per published guideline statements. Consider symptom-guided anti-ischemic and preventive pharmacotherapy as well as risk factor modification per published guideline statements. CAD RADS 5: Consider invasive angiography and/or viability assessment with revascularization per published guideline statements. Consider symptom-guided anti-ischemic and preventive pharmacotherapy as well as risk factor modification per published guideline statements. CRITICAL RESULT None COMMUNICATION Per this written report The coronary and cardiac findings of this CCTA were reviewed, reported, and signed by Keo Jane MD (Technical Systems Architect) Conclusion Electronically signed by : Mehreen Jane MD 11/01/2023 11:35:50
--- NOTE | 2023-10-27 07:04 | CA_ITS ---
APPROVED REPORT EXAM: Comprehensive 2D, Doppler, and color-flow Echocardiogram Solid [employer] Machine Operator: Salma Langley, CAROL ANN, RVS Ht: 5 ft 2 in Wt: 187lbs BSA: 1.86 BP: 144/79 mmHg Indications: Murmur, Shortness of Breath, Diabetes, Hyperlipidemia 2D Dimensions IVSd 0.99 cm LVEF (Visual) 66.20 % PWd 0.80 cm LA Volume 55.20 mL LVDd 4.33 cm LA Volume Index 29.10 mL/m2 (M/F) 16-34 LVDs 2.76 cm Left Atrium 3.59 cm M-Mode Dimensions RVDd 1.48 cm (0.9-2.6) LA Diam 4.20 cm (1.9-4.0) LVDd 4.49 cm (3.5-5.7) LVDs 3.22 cm (3.5-5.7) IVSd 1.11 cm (0.6-1.1) PWd 0.80 cm (0.6-1.1) EF (Teich) 54.80% EPSs 0.29 cm FS 28.30% EDV (Teich) 92.00 mL TAPSE 2.55 (<1.7) ESV (Teich) 41.60 mL LV Diastology E Decel Time 200 (160-240 msec) E/A Ratio 1.08 MED A' 10.30 cm/s LAT A' 10.80 cm/s Aortic Valve SUNITHA Index 1.26 cm2/m2 AoV Peak Mauricio. 204.0 (50-130 cm/s) AI PHT 506.00 ms AO Peak GR. 16.70 mmHg AO Mean GR. 8.40 (<5 mmHg) AO VTI 42.4 (18-25 cm) SUNITHA (VTI) 2.40 (2.5-4.5 cm2) Mitral Valve MV A Velocity 94.0 (40-130 cm/s) E/A Ratio 1.08 MV Mean Gr. 2.40 (<2mmHg) Tricuspid Valve TR P. Velocity 210.00 cm/s RAP Estimate 10.00 mmHg RVSP 27.60 mmHg Left Ventricle The left ventricle is normal size. The left ventricular systolic function is normal. The left ventricular ejection fraction is within the normal range. There is increased LV wall thickness. There is mild hypokinesis of the septal and anteroseptal LV andujar. The left ventricular diastolic function is normal. LVEF is 55%. Right Ventricle The right ventricle is mildly dilated. The right ventricular systolic function is normal. Atria The left atrium size is normal. The right atrium size is normal. There is no Doppler evidence of interatrial shunt. Aortic Valve The aortic valve is normal in structure. There is no aortic valvular stenosis. Mild aortic regurgitation. Mitral Valve The mitral valve is normal in structure. No evidence of mitral valve stenosis. There is no mitral valve regurgitation noted. Tricuspid Valve The tricuspid valve leaflets are thin and pliable. Trace tricuspid regurgitation. There is insufficient TR jet to estimate RVSP. Pulmonic Valve The pulmonary valve is normal in structure. Trace pulmonic regurgitation. Great Vessels The aortic root is normal in size. The ascending aorta is normal in size. IVC is normal in size and collapses >50% with inspiration. Pericardium There is no pericardial effusion. Other Information Study Quality: Fair Conclusion Normal biventricular systolic function. Mild hypokinesis of the septal and anteroseptal LV andujar. Mild RV dilation. Mild AI. Electronically signed by : Mehreen Jane MD 10/30/2023 13:52:27
[2023-10-27 08:10] LABS: POC Glucose,Bedside 113 (70-110)
[2023-10-27] MEDS: IVABRADINE HCL 7.5MG TABLET 15 MG PO (08:10)
[2023-10-27] MEDS: METOPROLOL TARTRATE 50MG TABLET *IVABRADINE+METOPROLOL REGIMINE 75 MG PO (08:19)
[2023-10-27 08:30] LABS: Alanine Aminotransferase 26 U/L (12-78); Albumin Level 4.7 g/dl (3.5-5.0); Albumin/Globulin Ratio 1.6 (1.1-1.8); Alkaline Phosphatase 54 U/L (38-126); Anion Gap 12.6 mEq/L (5-15); Aspartate Amino Transferase 41 U/L (14-36); Bilirubin,Total 0.7 mg/dl (0.2-1.3); Blood Urea Nitrogen 12 mg/dl (7-17); Calcium 9.3 mg/dl (8.4-10.2); Carbon Dioxide 29 mmol/L (22.0-30.0); Chloride 103 mmol/L (98-107); Creatinine Clearance Estimated 112 mL/min (50-200); Estimated Glomerular Filt Rate 86 ml/min (>60); GFR (African American) 104 ML/MIN (>60); Glucose 116 mg/dl (74-100); Potassium 4.6 mmoL/L (3.5-5.1); Sodium 140 mmol/L (136-145); Total Protein,Serum 7.7 g/dl (6.3-8.2)
[2023-10-27] MEDS: METOPROLOL TARTRATE 5MG/5ML VIAL *IVABRADINE+METOPROLOL REGIMINE 5 MG IV (09:29)
[2023-10-27] MEDS: SODIUM CHLORIDE 0.9% 10ML SYR (RAD ONLY) 10 ML IV (09:42)
[2023-10-27] MEDS: 0.9 % SODIUM CHLORIDE 50 ML VIAL IV (09:42)
[2023-10-27] MEDS: IOPAMIDOL-370 (76%);100ML BOTTLE 85 ML IV (09:42)
== END 2023-10-27 10:29 | disposition home or self-care (01) ==
LOC: RT 07:01 → RAD 08:05
PROVIDERS: PCP Nurse Practitioner Family; Visit Provider Internal Medicine
DX: E11.9 Type 2 diabetes mellitus without complications (principal); E78.5 Hyperlipidemia, unspecified; R06.00 Dyspnea, unspecified; R07.89 Other chest pain; Z79.84 Long term (current) use of oral hypoglycemic drugs
CPT/HCPCS: 75571; 75574; 80053; 82962; 93306; Q9967

== ENCOUNTER 2023-10-28 09:19 | Outpatient (CLI) | payer MEDICARE, BC, SELFPAY ==
[2023-10-28 11:11] LABS: Free T4 (Free Thyroxine) 1.12 ng/dl (0.78-2.19)
[2023-10-28 11:26] LABS: Thyroid Stimulating Hormone < 0.02 uIU/mL (0.465-4.68)
== END 2023-10-28 23:59 ==
PROVIDERS: PCP Nurse Practitioner Family; Visit Provider Internal Medicine
DX: R06.00 Dyspnea, unspecified (principal); E05.90 Thyrotoxicosis, unspecified without thyrotoxic crisis or storm
CPT/HCPCS: 36415; 84439; 84443

== ENCOUNTER 2023-10-31 18:33 | Outpatient (CLI) | payer MEDICARE, BC, SELFPAY ==
[2023-10-31 18:34] LABS: Free T4 (Free Thyroxine) 1.02 ng/dl (0.78-2.19)
[2023-10-31 18:49] LABS: Thyroid Stimulating Hormone 0.68 uIU/mL (0.465-4.68)
[2023-10-31 20:50] LABS: Hemoglobin A1C 5.6 % (4.0-6.0)
[2023-11-02 10:03] LABS: Thyroid Peroxidase Antibodies 9 IU/mL (0-34); Triiodothyronine (T3) Free 2.5 pg/mL (2.0-4.4)
[2023-11-02 17:26] LABS: Thyroglobulin Level <1.0 IU/mL (0.0-0.9)
== END 2023-10-31 23:59 ==
LOC: LAB.DROPOF 18:34
PROVIDERS: PCP Nurse Practitioner Family; Visit Provider Nurse Practitioner Family
DX: E05.90 Thyrotoxicosis, unspecified without thyrotoxic crisis or storm (principal); E11.9 Type 2 diabetes mellitus without complications; Z79.84 Long term (current) use of oral hypoglycemic drugs
CPT/HCPCS: 83036; 84439; 84443; 84481; 86376; 86800

== ENCOUNTER 2023-11-11 07:47 | Day surgery (SDC) | payer MEDICARE, BC, SELFPAY ==
[2023-11-11] VITALS (13 sets, daily range): BP systolic 107–169; BP diastolic 61–99; PULSE 65–88; RESP 15–20; TEMP 36.4; O2SAT 90–100; BMI 30.4
--- NOTE | 2023-11-11 07:07 | IR_ITS ---
APPROVED REPORT Patient Location: Outpatient Auto Parts Clerk: EDILBERTO Jay RT (R) PROCEDURES Left heart catheterization Left ventriculogram Selective coronary angiogram INDICATION Calcium score greater than 400, Angina pectoris Informed consent was obtained prior to the procedure. COMPLICATIONS NONE Estimated Blood Loss: LESS THAN 10 ML TECHNIQUE One percent lidocaine used to anesthetize the right anterior aspect of the wrist. The right radial artery was accessed via the Seldinger technique. A 6 Turkish sheath was placed in the right radial artery. 2.5 mg of Verapamil, 800 mcg of nitroglycerin, 1mg Lidocaine and 5000 U Heparin were given through the arterial sheath. The papa catheter was also used to perform left heart catheterization, left ventriculogram and selective coronary angiogram. At the end of the procedure the sheath was removed good hemostasis was achieved using Traclet band, patient was transferred to the postop holding area in stable condition. ANGIOGRAPHIC RESULTS The left main artery Normal The left anterior descending artery Proximally normal with mid vessel 10% luminal irregularities The circumflex artery Is large and codominant with diffuse 10 to 20% luminal irregularities The right coronary artery Codominant with proximal and mid vessel 10 to 20% luminal irregularities The ROSENTHAL ventriculogram reveals Normal 65% The left ventricular end-diastolic pressure 20 mmHg IMPRESSION Mild diffuse coronary artery disease all of which is nonflow limiting Normal ejection fraction Mildly elevated LVEDP PLAN 1. Medical management with risk factor modification Electronically signed by : Eduardo Yusuf MD 11/11/2023 10:29:45
[2023-11-11 08:25] LABS: Basophils # 0.1 K/mm3 (0-0.2); Basophils % 0.6 % (0.1-2.0); Eosinophils # 0.1 K/mm3 (0.0-0.4); Eosinophils % 1.1 % (0.1-12.0); Hemoglobin 13.5 g/dL (12.2-16.2); Lymphocytes # 2.6 K/mm3 (0.7-4.5); Lymphocytes % 27.9 % (10-50); Mean Corpuscular HGB Conc 33.6 g/dL (31.8-35.4); Mean Corpuscular Hemoglobin 29.3 pg (27.0-31.2); Mean Corpuscular Volume 87.1 fl (81-99); Mean Platelet Volume 7.3 fl (7.4-10.4); Monocytes # 0.4 K/mm3 (0.1-1.0); Monocytes % 4.7 % (1.7-9.3); Neutrophils % 65.7 % (37.0-80.0); Platelet Count 260 K/mm3 (142-424); Red Blood Count 4.59 M/mm3 (4.20-5.40); Red Cell Distribution Width 13.5 % (11.5-17.5); White Blood Count 9.2 K/mm3 (4.8-10.8)
[2023-11-11 08:38] LABS: Chloride 103 mmol/L (98-107); Potassium 4.1 mmoL/L (3.5-5.1); Sodium 139 mmol/L (136-145)
[2023-11-11 08:41] LABS: Blood Urea Nitrogen 11 mg/dl (7-17); Creatinine Clearance Estimated 102 mL/min (50-200); Estimated Glomerular Filt Rate 73 ml/min (>60); GFR (African American) 89 ML/MIN (>60)
[2023-11-11 08:42] LABS: Anion Gap 13.1 mEq/L (5-15); Calcium 9.7 mg/dl (8.4-10.2); Carbon Dioxide 27 mmol/L (22.0-30.0); Glucose 128 mg/dl (74-100)
[2023-11-11] MEDS: HEPARIN 1,000 UNITS/500ML NS (CATH LAB) 3000 UNIT IV (09:43)
[2023-11-11] MEDS: HEPARIN 1,000 UNITS/ML 10ML VIAL (CATH LAB) 10000 UNIT IV (09:43)
[2023-11-11] MEDS: NITROGLYCERIN 800MCG/8ML SYR (CATH LAB) 800 MCG IA (09:43)
[2023-11-11] MEDS: diphenhydrAMINE 50MG/ML VIAL 50 MG IV (09:43)
[2023-11-11] MEDS: LIDOCAINE 1% 10ML MDV 20 ML IJ (09:43)
[2023-11-11] MEDS: VERAPAMIL 2.5MG/ML 2ML VIAL 2.5 MG IV (09:43)
[2023-11-11] MEDS: 0.9 % SODIUM CHLORIDE 500 ML 25 ML IV (09:44)
[2023-11-11] MEDS: MIDAZOLAM HCL 1MG/1ML 5ML VIAL 1 MG IV (09:44)
[2023-11-11] MEDS: FENTANYL 100MCG/2ML VIAL 50 MCG IV (09:44)
[2023-11-11] MEDS: IOPAMIDOL-370 (76%);100ML BOTTLE 50 ML IV (10:56)
== END 2023-11-11 13:24 | disposition home or self-care (01) ==
PROVIDERS: PCP Nurse Practitioner Family; Visit Provider Internal Medicine
DX: E11.9 Type 2 diabetes mellitus without complications (principal); E78.5 Hyperlipidemia, unspecified; I25.118 Atherosclerotic heart disease of native coronary artery with other forms of angina pectoris; R01.1 Cardiac murmur, unspecified; R06.00 Dyspnea, unspecified; R93.1 Abnormal findings on diagnostic imaging of heart and coronary circulation; Z79.899 Other long term (current) drug therapy; Z79.84 Long term (current) use of oral hypoglycemic drugs; Z82.49 Family history of ischemic heart disease and other diseases of the circulatory system
CPT/HCPCS: 80048; 85025; 93458; 99152; C1725; C1769; J1644; Q9967

== ENCOUNTER 2023-11-21 14:10 | Outpatient (CLI) | payer MEDICARE, BC, SELFPAY ==
[2023-11-21 14:53] LABS: Basophils % 0.4 % (0.1-2.0); Eosinophils # 0.1 K/mm3 (0.0-0.4); Eosinophils % 1.2 % (0.1-12.0); Hematocrit 38.7 % (37.0-47.0); Hemoglobin 13.2 g/dL (12.2-16.2); Lymphocytes # 2.6 K/mm3 (0.7-4.5); Lymphocytes % 29.9 % (10-50); Mean Corpuscular HGB Conc 34.1 g/dL (31.8-35.4); Mean Corpuscular Hemoglobin 29.6 pg (27.0-31.2); Mean Corpuscular Volume 86.7 fl (81-99); Mean Platelet Volume 7.6 fl (7.4-10.4); Monocytes # 0.4 K/mm3 (0.1-1.0); Monocytes % 5.1 % (1.7-9.3); Neutrophils # 5.5 K/mm3 (1.8-7.8); Neutrophils % 63.4 % (37.0-80.0); Platelet Count 276 K/mm3 (142-424); Red Blood Count 4.46 M/mm3 (4.20-5.40); Red Cell Distribution Width 13.5 % (11.5-17.5); White Blood Count 8.7 K/mm3 (4.8-10.8)
[2023-11-21 15:25] LABS: Anion Gap 10.4 mEq/L (5-15); Blood Urea Nitrogen 11 mg/dl (7-17); Calcium 9.8 mg/dl (8.4-10.2); Carbon Dioxide 31 mmol/L (22.0-30.0); Chloride 104 mmol/L (98-107); Estimated Glomerular Filt Rate 73 ml/min (>60); GFR (African American) 89 ML/MIN (>60); Glucose 96 mg/dl (74-100); Potassium 4.4 mmoL/L (3.5-5.1); Sodium 141 mmol/L (136-145)
== END 2023-11-21 23:59 ==
PROVIDERS: PCP Nurse Practitioner Family; Visit Provider Internal Medicine
DX: D50.9 Iron deficiency anemia, unspecified (principal); E11.9 Type 2 diabetes mellitus without complications; I25.10 Atherosclerotic heart disease of native coronary artery without angina pectoris; Z79.84 Long term (current) use of oral hypoglycemic drugs; Z87.891 Personal history of nicotine dependence
CPT/HCPCS: 36415; 80048; 85025

== ENCOUNTER 2024-01-03 14:05 | Outpatient (CLI) | payer MEDICARE, BC, SELFPAY ==
[2024-01-03 13:57] LABS: Basophils # 0.1 K/mm3 (0-0.2); Basophils % 0.7 % (0.1-2.0); Eosinophils # 0.1 K/mm3 (0.0-0.4); Eosinophils % 0.9 % (0.1-12.0); Hematocrit 35.7 % (37.0-47.0); Hemoglobin 11.7 g/dL (12.2-16.2); Lymphocytes # 2.3 K/mm3 (0.7-4.5); Lymphocytes % 19.2 % (10-50); Mean Corpuscular HGB Conc 32.9 g/dL (31.8-35.4); Mean Corpuscular Hemoglobin 29.5 pg (27.0-31.2); Mean Corpuscular Volume 89.5 fl (81-99); Mean Platelet Volume 9.1 fl (7.4-10.4); Monocytes # 0.7 K/mm3 (0.1-1.0); Monocytes % 5.6 % (1.7-9.3); Neutrophils # 8.8 K/mm3 (1.8-7.8); Neutrophils % 73.6 % (37.0-80.0); Platelet Count 401 K/mm3 (142-424); Red Blood Count 3.98 M/mm3 (4.20-5.40); Red Cell Distribution Width 13.6 % (11.5-17.5)
[2024-01-03 14:28] LABS: Alanine Aminotransferase 18 U/L (12-78); Albumin Level 4.5 g/dl (3.5-5.0); Albumin/Globulin Ratio 1.5 (1.1-1.8); Alkaline Phosphatase 82 U/L (38-126); Anion Gap 14.2 mEq/L (5-15); Aspartate Amino Transferase 27 U/L (14-36); Bilirubin,Total 1.1 mg/dl (0.2-1.3); Blood Urea Nitrogen 14 mg/dl (7-17); Carbon Dioxide 25 mmol/L (22.0-30.0); Chloride 103 mmol/L (98-107); Chol/HDL Ratio 3.9 (1-3.5); Cholesterol 188 mg/dl (140-200); Estimated Glomerular Filt Rate 102 ml/min (>60); GFR (African American) 124 ML/MIN (>60); Glucose 128 mg/dl (74-100); HDL Cholesterol 48 mg/dl (40-60); Potassium 4.2 mmoL/L (3.5-5.1); Sodium 138 mmol/L (136-145); Total Protein,Serum 7.5 g/dl (6.3-8.2); Triglycerides 228 mg/dl (30-150); VLDL Cholesterol 46 mg/dL (0-40)
[2024-01-03 14:36] LABS: Microalbumin < 6.000 mg/L (0-16.7)
[2024-01-03 14:39] LABS: Direct LDL Cholesterol 96.28 mg/dL (100-129)
[2024-01-03 14:47] LABS: T4 (Thyroxine) 11.3 ug/dl (5.53-11.0)
[2024-01-03 15:00] LABS: Thyroid Stimulating Hormone 0.76 uIU/mL (0.465-4.68)
[2024-01-03 16:32] LABS: Hemoglobin A1C 6.2 % (4.0-6.0)
[2024-01-03 17:17] LABS: Ferritin 97.4 ng/ml (11.1-264)
== END 2024-01-03 23:59 ==
LOC: LAB.DROPOF 14:06
PROVIDERS: PCP Nurse Practitioner Family; Visit Provider Nurse Practitioner Family
DX: E05.90 Thyrotoxicosis, unspecified without thyrotoxic crisis or storm (principal); E11.9 Type 2 diabetes mellitus without complications; D50.9 Iron deficiency anemia, unspecified; E78.5 Hyperlipidemia, unspecified; Z79.84 Long term (current) use of oral hypoglycemic drugs
CPT/HCPCS: 80053; 80061; 82043; 82728; 83036; 84436; 84443; 85025

== ENCOUNTER 2024-04-03 15:28 | Outpatient (CLI) | payer MEDICARE, BC, SELFPAY ==
[2024-04-03 14:00] LABS: Alanine Aminotransferase 18 U/L (12-78); Albumin Level 4.3 g/dl (3.5-5.0); Albumin/Globulin Ratio 1.4 (1.1-1.8); Alkaline Phosphatase 58 U/L (38-126); Anion Gap 9.9 mEq/L (5-15); Aspartate Amino Transferase 28 U/L (14-36); Basophils # 0.1 K/mm3 (0-0.2); Basophils % 0.7 % (0.1-2.0); Blood Urea Nitrogen 14 mg/dl (7-17); Calcium 9.5 mg/dl (8.4-10.2); Carbon Dioxide 27 mmol/L (22.0-30.0); Chloride 105 mmol/L (98-107); Chol/HDL Ratio 5.5 (1-3.5); Cholesterol 188 mg/dl (140-200); Eosinophils # 0.1 K/mm3 (0.0-0.4); Eosinophils % 1.5 % (0.1-12.0); Estimated Glomerular Filt Rate 102 ml/min (>60); GFR (African American) 124 ML/MIN (>60); Glucose 146 mg/dl (74-100); HDL Cholesterol 34 mg/dl (40-60); Hematocrit 32.8 % (37.0-47.0); Hemoglobin 11.9 g/dL (12.2-16.2); Lymphocytes # 2.4 K/mm3 (0.7-4.5); Lymphocytes % 29.8 % (10-50); Mean Corpuscular HGB Conc 36.3 g/dL (31.8-35.4); Mean Corpuscular Hemoglobin 32.1 pg (27.0-31.2); Mean Corpuscular Volume 88.5 fl (81-99); Mean Platelet Volume 9.2 fl (7.4-10.4); Monocytes # 0.5 K/mm3 (0.1-1.0); Monocytes % 6.6 % (1.7-9.3); Neutrophils # 4.9 K/mm3 (1.8-7.8); Neutrophils % 61.4 % (37.0-80.0); Platelet Count 277 K/mm3 (142-424); Potassium 3.9 mmoL/L (3.5-5.1); Red Cell Distribution Width 15.8 % (11.5-17.5); Sodium 138 mmol/L (136-145); Total Protein,Serum 7.3 g/dl (6.3-8.2)
[2024-04-03 14:11] LABS: C-Reactive Protein 3.9 mg/L (0-4); Direct LDL Cholesterol 91.17 mg/dL (100-129)
[2024-04-03 14:33] LABS: Triglycerides 419 mg/dl (30-150)
[2024-04-03 15:46] LABS: Ferritin 58.7 ng/ml (11.1-264)
[2024-04-03 16:26] LABS: Hemoglobin A1C 6.7 % (4.0-6.0)
[2024-04-04 10:22] LABS: Thyroid Stimulating Hormone 1.17 uIU/mL (0.465-4.68)
== END 2024-04-03 23:59 | disposition home or self-care (01) ==
LOC: LAB.DROPOF 15:29
PROVIDERS: PCP Nurse Practitioner Family; Visit Provider Nurse Practitioner Family
DX: E78.5 Hyperlipidemia, unspecified (principal); I10 Essential (primary) hypertension; E11.9 Type 2 diabetes mellitus without complications; D50.9 Iron deficiency anemia, unspecified; L40.50 Arthropathic psoriasis, unspecified; M06.9 Rheumatoid arthritis, unspecified
CPT/HCPCS: 80053; 80061; 82728; 83036; 84443; 85025; 86140

== ENCOUNTER 2024-04-26 11:28 | Emergency (ER) | payer MEDICARE, BC, SELFPAY ==
[2024-04-26 11:29] VITALS: BP 181/89; PULSE 98; RESP 18; TEMP 36.7; O2SAT 99; BMI 36.6
[2024-04-26 11:35] VITALS: BP 181/89; PULSE 99; O2SAT 98
--- NOTE | 2024-04-26 11:35 | PC.NURSE ---
dr crowley at bedside
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
[2024-04-26 12:00] VITALS: BP 160/83; PULSE 97; O2SAT 98
--- NOTE | 2024-04-26 12:05 | PC.NURSE ---
XR AT BEDSIDE
[2024-04-26] MEDS: LIDOCAINE 1% 20ML MDV 20 ML SQ (12:20)
--- NOTE | 2024-04-26 12:25 | PC.NURSE ---
PT ASSISTED TO BR
--- NOTE | 2024-04-26 12:43 | PC.NURSE ---
Dr Hodges at bedside.
[2024-04-26 13:15] VITALS: BP 158/72; PULSE 95; RESP 18; TEMP 36.7; O2SAT 99
== END 2024-04-26 13:15 | disposition home or self-care (01) ==
PROVIDERS: Emergency Provider Emergency Medicine; PCP Nurse Practitioner Family
DX: S61.411A Laceration without foreign body of right hand, initial encounter (principal); W26.0XXA Contact with knife, initial encounter
CPT/HCPCS: 12002; 73130; 99283

== ENCOUNTER 2024-07-04 16:42 | Outpatient (CLI) | payer MEDICARE, BC, SELFPAY ==
[2024-07-04 12:34] LABS: Basophils # 0.1 K/mm3 (0-0.2); Basophils % 0.8 % (0.1-2.0); Eosinophils # 0.1 K/mm3 (0.0-0.4); Hematocrit 37.9 % (37.0-47.0); Hemoglobin 12.2 g/dL (12.2-16.2); Lymphocytes # 2.1 K/mm3 (0.7-4.5); Lymphocytes % 31.5 % (10-50); Mean Corpuscular HGB Conc 32.3 g/dL (31.8-35.4); Mean Corpuscular Hemoglobin 30.3 pg (27.0-31.2); Mean Corpuscular Volume 93.9 fl (81-99); Mean Platelet Volume 7.8 fl (7.4-10.4); Monocytes # 0.4 K/mm3 (0.1-1.0); Neutrophils % 59.6 % (37.0-80.0); Platelet Count 327 K/mm3 (142-424); Red Blood Count 4.04 M/mm3 (4.20-5.40); Red Cell Distribution Width 14.6 % (11.5-17.5); White Blood Count 6.8 K/mm3 (4.8-10.8)
[2024-07-04 12:38] LABS: Creatinine,Urine Random 31 mg/dL (Not Estab.)
[2024-07-04 12:43] LABS: Microalbumin < 6.000 mg/L (0-16.7)
[2024-07-04 12:50] LABS: Hemoglobin A1C 7.5 % (4.0-6.0)
[2024-07-04 13:13] LABS: Albumin Level 4.7 g/dl (3.5-5.0); Chloride 99 mmol/L (98-107); Sodium 137 mmol/L (136-145)
[2024-07-04 13:14] LABS: Potassium 4.8 mmoL/L (3.5-5.1)
[2024-07-04 13:16] LABS: Alanine Aminotransferase 25 U/L (12-78); Albumin/Globulin Ratio 1.7 (1.1-1.8); Alkaline Phosphatase 58 U/L (38-126); Anion Gap 14.8 mEq/L (5-15); Aspartate Amino Transferase 36 U/L (14-36); Bilirubin,Total 0.9 mg/dl (0.2-1.3); Blood Urea Nitrogen 14 mg/dl (7-17); Carbon Dioxide 28 mmol/L (22.0-30.0); Cholesterol 174 mg/dl (140-200); Estimated Glomerular Filt Rate 102 ml/min (>60); GFR (African American) 124 ML/MIN (>60); Globulin 2.7 g/dL (1.3-3.2); Total Protein,Serum 7.4 g/dl (6.3-8.2); Triglycerides 266 mg/dl (30-150); VLDL Cholesterol 53 mg/dL (0-40)
[2024-07-04 13:17] LABS: Chol/HDL Ratio 4.6 (1-3.5); Glucose 138 mg/dl (74-100); HDL Cholesterol 38 mg/dl (40-60); Magnesium 1.6 mg/dl (1.6-2.3)
[2024-07-04 13:28] LABS: Direct LDL Cholesterol 94.72 mg/dL (100-129)
[2024-07-04 13:46] LABS: Thyroid Stimulating Hormone 1.11 uIU/mL (0.465-4.68)
[2024-07-04 13:50] LABS: Ferritin 97.9 ng/ml (11.1-264)
[2024-07-04 14:37] LABS: Vitamin B12 941 pg/mL (239-931)
[2024-07-04 14:45] LABS: HIV (1&2) Antibody Rapid NONREACTIVE (NONREACTIVE)
[2024-07-06 05:14] LABS: HCV Ab Non Reactive (Non Reactive)
== END 2024-07-04 23:59 | disposition home or self-care (01) ==
LOC: LAB.DROPOF 16:43
PROVIDERS: PCP Nurse Practitioner Family; Visit Provider Nurse Practitioner Family
DX: E11.9 Type 2 diabetes mellitus without complications (principal); L40.50 Arthropathic psoriasis, unspecified; E05.90 Thyrotoxicosis, unspecified without thyrotoxic crisis or storm; E78.5 Hyperlipidemia, unspecified; B34.9 Viral infection, unspecified; R53.83 Other fatigue; I10 Essential (primary) hypertension; E55.9 Vitamin D deficiency, unspecified; D50.8 Other iron deficiency anemias; D50.9 Iron deficiency anemia, unspecified; M06.9 Rheumatoid arthritis, unspecified
CPT/HCPCS: 80053; 80061; 82043; 82306; 82570; 82607; 82728; 83036; 83735; 84443; 85025; 86803; 87389

== ENCOUNTER 2024-10-01 13:44 | Outpatient (CLI) | payer MEDICARE, BC, SELFPAY ==
[2024-10-01 13:27] LABS: Basophils # 0.1 K/mm3 (0-0.2); Basophils % 0.9 % (0.1-2.0); Eosinophils # 0.1 K/mm3 (0.0-0.4); Eosinophils % 1.3 % (0.1-12.0); Hematocrit 36.5 % (37.0-47.0); Hemoglobin 11.7 g/dL (12.2-16.2); Lymphocytes # 0.8 K/mm3 (0.7-4.5); Lymphocytes % 11.3 % (10-50); Mean Corpuscular HGB Conc 32.1 g/dL (31.8-35.4); Mean Corpuscular Volume 90.3 fl (81-99); Monocytes # 0.6 K/mm3 (0.1-1.0); Neutrophils # 5.5 K/mm3 (1.8-7.8); Neutrophils % 78.1 % (37.0-80.0); Platelet Count 250 K/mm3 (142-424); Red Blood Count 4.04 M/mm3 (4.20-5.40); Red Cell Distribution Width 13.1 % (11.5-17.5)
[2024-10-01 14:10] LABS: Alanine Aminotransferase 42 U/L (12-78); Albumin Level 4.7 g/dl (3.5-5.0); Alkaline Phosphatase 55 U/L (38-126); Aspartate Amino Transferase 93 U/L (14-36); Bilirubin,Total 0.9 mg/dl (0.2-1.3); Blood Urea Nitrogen 13 mg/dl (7-17); Calcium 9.8 mg/dl (8.4-10.2); Carbon Dioxide 25 mmol/L (22.0-30.0); Chloride 100 mmol/L (98-107); Chol/HDL Ratio 4.8 (1-3.5); Cholesterol 183 mg/dl (140-200); Estimated Glomerular Filt Rate 102 ml/min (>60); GFR (African American) 123 ML/MIN (>60); Globulin 2.3 g/dL (1.3-3.2); Glucose 147 mg/dl (74-100); HDL Cholesterol 38 mg/dl (40-60); Magnesium 1.5 mg/dl (1.6-2.3); Sodium 136 mmol/L (136-145); Triglycerides 238 mg/dl (30-150); VLDL Cholesterol 48 mg/dL (0-40)
[2024-10-01 14:22] LABS: Direct LDL Cholesterol 108.46 mg/dL (100-129)
[2024-10-01 14:26] LABS: Free T4 (Free Thyroxine) 1.28 ng/dl (0.78-2.19)
[2024-10-01 14:27] LABS: 25-OH Vitamin D, Total 52.6 ng/mL (30-100)
[2024-10-01 14:42] LABS: Thyroid Stimulating Hormone 0.68 uIU/mL (0.465-4.68)
[2024-10-01 14:49] LABS: Hemoglobin A1C 7.1 % (4.0-6.0)
[2024-10-01 15:17] LABS: Vitamin B12 944 pg/mL (239-931)
[2024-10-01 15:26] LABS: Microalbumin/Creatinine Ratio 27.8
[2024-10-01 15:27] LABS: Creatinine,Urine Random 51 mg/dL (Not Estab.)
[2024-10-01 16:00] LABS: Anion Gap 15.2 mEq/L (5-15); Potassium 4.2 mmoL/L (3.5-5.1)
[2024-10-01 16:38] LABS: Ferritin 162 ng/ml (11.1-264)
== END 2024-10-01 23:59 | disposition home or self-care (01) ==
LOC: LAB.DROPOF 13:44
PROVIDERS: PCP Nurse Practitioner Family; Visit Provider Nurse Practitioner Family
DX: E55.9 Vitamin D deficiency, unspecified (principal); D50.8 Other iron deficiency anemias; E11.9 Type 2 diabetes mellitus without complications; E78.5 Hyperlipidemia, unspecified; E05.90 Thyrotoxicosis, unspecified without thyrotoxic crisis or storm; Z68.38 Body mass index [BMI] 38.0-38.9, adult; E66.9 Obesity, unspecified
CPT/HCPCS: 80053; 80061; 82043; 82306; 82570; 82607; 82728; 82746; 83036; 83735; 84439; 84443; 84481; 85025

== ENCOUNTER 2024-12-31 09:05 | Outpatient (CLI) | payer MEDICARE, BC, SELFPAY ==
[2024-12-31 10:13] LABS: Basophils # 0.1 K/mm3 (0-0.2); Basophils % 0.9 % (0.1-2.0); Eosinophils # 0.1 K/mm3 (0.0-0.4); Eosinophils % 1.6 % (0.1-12.0); Hematocrit 36.6 % (37.0-47.0); Mean Corpuscular HGB Conc 32.8 g/dL (31.8-35.4); Mean Corpuscular Volume 88.4 fl (81-99); Mean Platelet Volume 9.7 fl (7.4-10.4); Monocytes # 0.5 K/mm3 (0.1-1.0); Neutrophils # 4.3 K/mm3 (1.8-7.8); Neutrophils % 61.1 % (37.0-80.0); Platelet Count 280 K/mm3 (142-424); Red Blood Count 4.14 M/mm3 (4.20-5.40); Red Cell Distribution Width 13.6 % (11.5-17.5)
[2024-12-31 10:29] LABS: Albumin Level 4.8 g/dl (3.5-5.0); Chloride 104 mmol/L (98-107); Sodium 138 mmol/L (136-145)
[2024-12-31 10:30] LABS: Potassium 4.6 mmoL/L (3.5-5.1)
[2024-12-31 10:32] LABS: Alanine Aminotransferase 42 U/L (12-78); Albumin/Globulin Ratio 1.9 (1.1-1.8); Alkaline Phosphatase 61 U/L (38-126); Anion Gap 14.6 mEq/L (5-15); Aspartate Amino Transferase 62 U/L (14-36); Bilirubin,Total 0.9 mg/dl (0.2-1.3); Blood Urea Nitrogen 16 mg/dl (7-17); Carbon Dioxide 24 mmol/L (22.0-30.0); Cholesterol 174 mg/dl (140-200); Estimated Glomerular Filt Rate 102 ml/min (>60); GFR (African American) 123 ML/MIN (>60); Globulin 2.5 g/dL (1.3-3.2); Total Protein,Serum 7.3 g/dl (6.3-8.2); Triglycerides 317 mg/dl (30-150); VLDL Cholesterol 63 mg/dL (0-40)
[2024-12-31 10:33] LABS: Calcium 9.7 mg/dl (8.4-10.2); Glucose 161 mg/dl (74-100); HDL Cholesterol 35 mg/dl (40-60); Magnesium 1.5 mg/dl (1.6-2.3)
[2024-12-31 10:43] LABS: Direct LDL Cholesterol 85.02 mg/dL (100-129)
[2024-12-31 10:49] LABS: Free T4 (Free Thyroxine) 1.26 ng/dl (0.78-2.19)
[2024-12-31 11:03] LABS: Thyroid Stimulating Hormone 1.43 uIU/mL (0.465-4.68)
[2024-12-31 11:05] LABS: 25-OH Vitamin D, Total 44.9 ng/mL (30-100)
[2024-12-31 12:42] LABS: Hemoglobin A1C 7.6 % (4.0-6.0)
[2025-01-02 18:10] LABS: QuantiFERON-TB Gold Plus Negative (Negative)
== END 2024-12-31 23:59 | disposition home or self-care (01) ==
LOC: LAB 09:06
PROVIDERS: PCP Nurse Practitioner Family; Visit Provider Nurse Practitioner Family
DX: E78.5 Hyperlipidemia, unspecified (principal); E11.9 Type 2 diabetes mellitus without complications; E55.9 Vitamin D deficiency, unspecified; E05.90 Thyrotoxicosis, unspecified without thyrotoxic crisis or storm; L40.50 Arthropathic psoriasis, unspecified; M06.9 Rheumatoid arthritis, unspecified; Z79.84 Long term (current) use of oral hypoglycemic drugs
CPT/HCPCS: 36415; 80053; 80061; 82306; 83036; 83735; 84439; 84443; 84481; 85025; 86480

== ENCOUNTER 2025-02-04 15:31 | Outpatient (CLI) | payer MEDICARE, BC, SELFPAY ==
[2025-02-04 15:05] LABS: Magnesium 1.5 mg/dl (1.6-2.3)
== END 2025-02-04 23:59 | disposition home or self-care (01) ==
LOC: LAB.DROPOF 15:31
PROVIDERS: PCP Nurse Practitioner Family; Visit Provider Nurse Practitioner Family
DX: R79.0 Abnormal level of blood mineral (principal)
CPT/HCPCS: 83735

== ENCOUNTER 2025-03-25 14:03 | Outpatient (CLI) | payer MEDICARE, BC, SELFPAY ==
[2025-03-25 13:14] LABS: Albumin Level 4.8 g/dl (3.5-5.0); Chloride 101 mmol/L (98-107); Sodium 140 mmol/L (136-145)
[2025-03-25 13:15] LABS: Potassium 4.8 mmoL/L (3.5-5.1)
[2025-03-25 13:17] LABS: Alanine Aminotransferase 23 U/L (12-78); Albumin/Globulin Ratio 1.6 (1.1-1.8); Alkaline Phosphatase 57 U/L (38-126); Anion Gap 16.8 mEq/L (5-15); Aspartate Amino Transferase 36 U/L (14-36); Bilirubin,Total 0.8 mg/dl (0.2-1.3); Blood Urea Nitrogen 11 mg/dl (7-17); Carbon Dioxide 27 mmol/L (22.0-30.0); Cholesterol 140 mg/dl (140-200); Estimated Glomerular Filt Rate 85 ml/min (>60); GFR (African American) 103 ML/MIN (>60); Total Protein,Serum 7.8 g/dl (6.3-8.2); Triglycerides 185 mg/dl (30-150); VLDL Cholesterol 37 mg/dL (0-40)
[2025-03-25 13:18] LABS: Calcium 10.1 mg/dl (8.4-10.2); Chol/HDL Ratio 3.6 (1-3.5); Glucose 98 mg/dl (74-100); HDL Cholesterol 39 mg/dl (40-60); Magnesium 1.8 mg/dl (1.6-2.3)
[2025-03-25 13:29] LABS: Direct LDL Cholesterol 62.59 mg/dL (100-129)
[2025-03-25 13:38] LABS: Hemoglobin A1C 7.1 % (4.0-6.0)
[2025-03-25 13:48] LABS: Thyroid Stimulating Hormone 0.47 uIU/mL (0.465-4.68)
[2025-03-25 13:52] LABS: Ferritin 182 ng/ml (11.1-264)
--- OUTSIDE RECORDS SUMMARY | 2025-03-25 14:53 | XMS_ITS | Clinical Summary ---
Author Organization [facility] Address [address] [place] [address] Phone Care Team Providers Care Business Objects Report Developer Name Role Phone Lloyd Muhammad MD [phone] [ ] Conditions or Problems Problem Name Problem Code Onset Date Status Entry Date Provider Comment Standard Description Annotate Other obesity due to excess calories 711788560 (SNOMED CT) 03/10 Active 03/10 Elba Salvador Simple obesity Infection, skin and soft tissue 43975734 (SNOMED CT) 03/10 Active 03/10 Estee Edelen Soft tissue infection Acute osteomyeliti s, right index finger 67790241 (SNOMED CT) 03/10 Active 03/10 Estee Edelen Acute osteomyelitis of hand Cigarette smoker 08881996 (SNOMED CT) 03/10 Active 03/10 Estee Edelen Cigarette smoker Cellulitis of right finger L03.011 (ICD-10-CM) 03/10 Active 03/10 Estee Edelen Cellulitis of right finger Drug rash 98922869 (SNOMED CT) 01/19 Active 01/19 Jennifer Molina RN Eruption caused by drug Psoriatic Arthritis 08353948 (SNOMED CT) 12/19 Active 12/19 Molly W Psoriasis with arthropathy Cellulitis of left finger L03.012 (ICD-10-CM) 12/18 Active 12/18 Sole Adán Cellulitis of left finger Infective (teno)synovi tis, right hand/finger (document bacterial agent) M65.141 (ICD-10-CM) 12/18 Inactive 12/18 Jennifer Kaz Other infective (teno)synoviti s, right hand Problem excluded fro m report: Trigger finger of right middle finger 3187779 (SNOMED CT) 12/18 Inactive 12/18 Jennifer Kaz Acquired trigger finger Problem excluded fro m report: Trigger finger of left middle finger 9079920 (SNOMED CT) 12/20 Active 12/20 Jennifer Kaz Acquired trigger finger Infective (teno)synovi tis, left hand/finger 422816057 (SNOMED CT) 12/20 Active 12/20 Jennifer Kaz Synovitis/teno synovitis - hand Psoriasis, hands 2933116 (SNOMED CT) 12/19 Inactive 12/19 Fabrizio Sue MD Psoriasis Acute osteomyeliti s, left finger M86.142 (ICD-10-CM) 12/19 Active 12/19 Fabrizio Sue MD Other acute osteomyelitis, left hand Cellulitis of right long finger L03.011 (ICD-10-CM) 12/18 Inactive 12/18 Sole Adán Cellulitis of right finger Infective (teno)synovi tis, right hand/finger (document bacterial agent) M65.141 (ICD-10-CM) 12/18 Removed 12/18 Sole Adán Other infective (teno)synoviti s, right hand Trigger finger of right middle finger 3302807 (SNOMED CT) 12/18 Removed 12/18 Sole Adán Acquired trigger finger Medications Medication Instructions Start Date Stop Date Generic Name NDC Provider AMOXICILLIN-POT CLAVULANATE 875-125 MG TABS Take 1 tablet by mouth twice a day amoxicillin-pot clavulanate 11356026963 Lloyd Muhammad MD MELOXICAM 15 MG TABS by mouth once a day meloxicam 77126862359 Tasia January GABAPENTIN 100 MG CAPS by mouth once a day gabapentin 02355480829 Tasia January AMOXICILLIN-POT CLAVULANATE 875-125 MG TABS Take 1 tablet by mouth twice a day amoxicillin-pot clavulanate 04631908002 Lloyd Muhammad MD GABAPENTIN 100 MG CAPS by mouth once a day gabapentin 98682436446 Bonnie Flores MELOXICAM 15 MG TABS by mouth once a day meloxicam 37999366277 Bonnie Flores ESCITALOPRAM OXALATE 10 MG TABS by mouth once a day escitalopram oxalate 23353107371 Bonnie Flores Super B Maxi Complex unspecified unspecified by mouth once a day vitamin b complex-folic acid 76182985069 Bonnie Flores PRAVACHOL 20 MG ORAL TABLET Take 1 by mouth once a day PRAVACHOL 20 MG ORAL TABLET Elba Franco ALL DAY ALLERGY 10 MG ORAL CAPSULE by mouth once a day ALL DAY ALLERGY 10 MG ORAL CAPSULE Elba Franco METFORMIN HCL 500 MG TABS Take 1 by mouth once a day metformin 95270057408 Elba Franco CALCIUM 600+D3 600-200 MG-UNIT ORAL TABLET Take by mouth twice a day CALCIUM 600+D3 600-200 MG-UNIT ORAL TABLET Elba Franco MELOXICAM 15 MG TABS Take 1 by mouth once a day meloxicam 36075528013 Elba Franco SUPER B-COMPLEX CAPS Take by mouth twice a day B [id number] Elba Franco STELARA 45 MG/0.5ML SOLN 1 every three months ustekinumab 28279443243 Elba Franco SULFASALAZINE 500 MG TABS by mouth once a day sulfasalazine 42701352507 Elba Franco CETIRIZINE HCL 10 MG TABS 1 once a day cetirizine 83849275835 Elba Franco LEXAPRO 10 MG TABS 1 once a day escitalopram oxalate 50977729154 Elba Franco LOSARTAN POTASSIUM 25 MG TABS 1 once a day losartan 91247143037 Elba Franco METFORMIN HCL 850 MG TABS 1 twice a day metformin 30897619596 Elba Franco PRAVASTATIN SODIUM 20 MG TABS 1 once a day pravastatin 45889130405 Elba Franco CALCIUM 600+D3 600-200 MG-UNIT ORAL TABLET Take by mouth twice a day CALCIUM CARB-CHOLECALCIF ROGELIO 90630192986 Fabrizio Sue MD SUPER B-COMPLEX CAPS Take by mouth twice a day B [id number] A 19501677978 Fabrizio Sue MD PRAVACHOL 20 MG ORAL TABLET Take one by mouth daily PRAVASTATIN SODIUM 91263248630 Fabrizio Sue MD METFORMIN HCL 500 MG TABS Take one by mouth daily METFORMIN HCL 23740215489 Fabrizio Sue MD MELOXICAM 15 MG TABS Take one by mouth daily MELOXICAM 39718292611 Fabrizio Sue MD STELARA 45 MG/0.5ML SOLN 1 shot every thrre months USTEKINUMAB 86615821125 Fabrizio Sue MD TYGACIL SOLR 50mg IV Bid TIGECYCLINE SOLR 16038279583 Zeenat Cabrera RN TYGACIL SOLR 50mg IV Bid TIGECYCLINE SOLR 38016245907 Jennifer Molina RN CEFTRIAXONE SODIUM (IV) SOLR Rocephin 2G IV q24hrs OPAT CEFTRIAXONE SODIUM SOLR 05849827001 Jennifer Molina RN CUBICIN SOLUTION RECONSTITUTED Cubicin 500mg IV q24hrs OPAT DAPTOMYCIN SOLR 22848437137 Jennifer Molina RN FLUCONAZOLE 200 MG TABS one tablet daily FLUCONAZOLE 45325579258 Fabrizio Sue MD CUBICIN SOLUTION RECONSTITUTED Cubicin 500mg IV q24hrs OPAT DAPTOMYCIN SOLR 62461373881 Swetha Doe RN CEFTRIAXONE SODIUM (IV) SOLR Rocephin 2G IV q24hrs OPAT CEFTRIAXONE SODIUM SOLR 88734506184 Swetha Doe RN SULFASALAZINE 500 MG TABS by mouth daily SULFASALAZINE 33609232991 Gasper K ALL DAY ALLERGY 10 MG ORAL CAPSULE by mouth daily CETIRIZINE HCL 36206073864 Gasper K Medications Administered No information available. Allergies, Adverse Reactions, Alerts No information available. Results Date Name Value Unit Range Flag Description External Other: Patient port al update - Email Push, [facility] ... PAT E-MAIL [email or web address] patient's e-mail address External Other: Patient port al update - AccountStatus, [facility] ... PATPORTALPIN Active This samantha l be used to establish a PIN number for patients to register in the Patient Portal. Lab Report: SEDIMENTATION RA TE ESR 16 mm/h 0-30 Erythrocyte sedimentation rate by Westergren method Lab Report: COMPREHENSIVE ME TABOLIC PANEL ANIONGAP 16.0 mmol/L anion gap, s chris BUN/CREAT 25.4 7.0-25.0 H Urea nitrogen/Creatinine [Mass Ratio] in Serum or Plasma GFRC 98 mL/min/1. 73m2 >60 Glomerular Filtration Rate Calculation BILI TOTAL 0.5 mg/dL 0.2-1.2 Bilirubin. total [Mass/volume] in Serum or Plasma ALK PHOS 72 U/L 39-117 Alkaline marcela sphatase [Enzymatic activity/volume] in Blood SGOT (AST) 15 U/L 1-32 Aspartate aminotransferase [Enzymatic activity/volume] in Serum or Plasma SGPT (ALT) 15 U/L 1-33 Alanine aminotransferase [Enzymatic activity/volume] in Serum or Plasma ALBUMIN 4.20 g/dL 3.50-5.20 Albumin [Mass/volume] in Serum or Plasma PROTEIN, TOT 7.7 g/dL 6.0-8.5 Protein [Mass/volume] in Serum or Plasma CALCIUM 9.7 mg/dL 8.6-10.5 Calcium [Moles/volume] in Serum or Plasma CO2 22.0 mmol/L 22.0-29.0 Carbon diox ana paula, total [Moles/volume] in Venous blood CHLORIDE 98 mmol/L 98-107 Chloride [Moles/volume] in Serum or Plasma POTASSIUM 3.8 mmol/L 3.5-5.2 Potassium [Moles/volume] in Serum or Plasma SODIUM 136 mmol/L 136-145 Sodium [Moles/volume] in Serum or Plasma CREATININE 0.63 mg/dL 0.57-1.00 Creatini ne [Mass/volume] in Serum or Plasma BUN 16 mg/dL 6-20 Urea nitrogen [Mass/volume] in Serum or Plasma GLUCOSE SER 179 mg/dL 65-99 H Glucose [Mass/volume] in Serum or Plasma Lab Report: CK CPK 68 U/L 20-180 Creatine amish se [Enzymatic activity/volume] in Serum or Plasma Lab Report: CBC WITH AUTO DI FFERENTIAL IMMATUREGRAN 0.02 10*3/MM3 0.00-0.05 Immature granulocytes [#/volume] in Blood BASO# 0.03 10*3/mm3 0.00-0.20 Basophils [#/vol ume] in Blood EOS ABSLT 0.15 10*3/uL 0.00-0.40 Eosinophi ls [#/volume] in Blood MONOSCT AUTO 0.80 10*3/uL 0.10-0.90 Monocy gal [#/volume] in Blood by Automated count LYMPHCT AUTO 2.81 10*3/mm3 0.70-3.10 Lymph ocytes [#/volume] in Blood by Automated count ABS NEUTROPH 4.29 10*3/uL 1.70-7.00 Neutro phils [#/volume] in Blood IMM GRANU % 0.2 % 0.0-0.5 Immature granulocytes/100 leukocytes in Blood [id number] 0.4 % 0.0-1.5 GE use only - for [employer] import when terms are not otherwise specified % EOS AUTO 1.9 % 0.3-6.2 Eosinophil s/100 leukocytes in Blood by Automated count MONOCYTE BF 9.9 % 5.0-12.0 monocyte s as percent of body fluid leukocytes LYMPHOCY BF 34.8 % 19.6-45.3 lymphoc ytes as percent of body fluid leukocytes PMN % 53.0 % 42.7-76.0 Neutrophils /100 leukocytes in Blood by Automated count PLATELETS 313 10*3/mm3 140-450 Platelets [#/volume] in Blood by Automated count RDW_ 13.0 12.3-15.4 RDW, no uni ts MCHC 32.5 G/DL 31.5-35.7 MCHC [Mass/ volume] by Automated count MCH 27.9 pg 26.6-33.0 MCH [Entiti c mass] by Automated count MCV 85.7 fL 79.0-97.0 MCV [Entiti c volume] by Automated count HCT 39.7 % 34.0-46.6 Hematocrit [Volume Fraction] of Blood by Automated count HGB 12.9 g/dL 12.0-15.9 Hemoglobin [Mass/volume] in Blood RBC 4.63 10*6/mm3 3.77-5.28 Erythrocyt es [#/volume] in Blood by Automated count WBC 8.08 10*3/mm3 3.40-10.8 0 Leukocytes [#/volume] in Blood by Automated count Lab Report: C-REACTIVE PROTE IN CRP 0.62 mg/dL 0.00-0.50 H C reactive protein [Mass/volume] in Serum or Plasma Office 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: 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 Dietary management education, guidance, and counseling (procedure) CIGARET SMKG yes Tobacco smoking status Clinical Lists Update: Prelo ad VAPE_USE Former Tobacco smok ing status Office Visit: Office Visit:tejas Harper ORALTOBACUSE Never Tobacco smoking status SMOK STATUS Former smoker Tobacco smoking status MEDS REVIEW Done Documenta tion of current medications (procedure) Plan of Care Type Date Detail Pending order Continue oral an tibiotics Pending order Continue oral an tibiotics Pending order New IV antibioti c Pending order New Oral Antibio tic Pending order STAT Labs Pending order CBC with Differe ntial Pending order C- reactive prot ein Pending order Central Line Rem oval Pending order Discontinue IV a ntibiotics Pending order Central Line Rem oval Pending order Change IV antibi otics Pending order Tigecycline Pending order Change IV antibi otics Pending order ECG ROUTINE ECG W/LEAST 12 LDS W/I&R Pending order Continue IV anti biotics Pending order Continue IV anti biotics Pending order Continue IV anti biotics Pending order Continue IV anti biotics Pending order CMP Pending order US, Abdomen RUQ Pending order CMP Pending order CBC with Differe ntial Pending order C- reactive prot ein Pending order CPK Pending order New IV antibioti c Pending order PICC Line Insert ion Pending order Stat Weekly Labs Patient education Daptomycin%20( Injection)%20(Injectable) Patient education Ceftriaxone%20 (Injection)%20(Injectable) Patient education Daptomycin%20( Injection)%20(Injectable) Patient education Ceftriaxone%20 (Injection)%20(Injectable) Procedures Code Procedure Name Date Entry Date CPT-sl STAT Labs [id number] CBC with Differential 2018 CPT-19222 C- reactive protein CPT-CLR Central Line Removal CPT-DC Discontinue IV antibiotics 2 CPT-CLR Central Line Removal CPT-denzel Change IV antibiotics 01/22 CPT-J3243 Tigecycline CPT-denzel Change IV antibiotics 01/19 CPT-31867 ECG ROUTINE ECG W/LEAST 12 LDS W/I&R 2018 CPT-ca Continue IV antibiotics 2018 CPT-ca Continue IV antibiotics 2018 CPT-ca Continue IV antibiotics 2018 CPT-ca Continue IV antibiotics 2018 CPT-10941 CMP CPT-02049 US, Abdomen RUQ CPT-73227 CMP [id number] CBC with Differential 2018 CPT-72892 C- reactive protein [id number], [id number] CPK CPT-velia New IV antibiotic CPT-86019 PICC Line Insertion CPT- stat weekly Stat Weekly Labs Vital Signs Date Name Value Unit Description BMI (Body Mass Index) 32.44 kg/m2 Bod y Mass Index (Ratio) Body Temperature 97.9 [degF] temperat ure E&M BP Diastolic 86 mm[Hg] blood pressu re, diastolic BP Systolic 126 mm[Hg] blood pressur e, systolic Heart Rate 16 /min pulse rate Height 62 [in_us] height E&M Respiratory Rate 16 /min respirat ory rate E&M Weight Measured 177.4 [lb_av] weight E& M Weight Measured 177.4 [lb_av] weight E& M Immunizations No information available. Advance Directives Directive Description Start Date NO ADVANCED DIRECTIVES
== END 2025-03-25 23:59 | disposition home or self-care (01) ==
LOC: LAB.DROPOF 14:50
PROVIDERS: PCP Nurse Practitioner Family; Visit Provider Nurse Practitioner Family
DX: E78.5 Hyperlipidemia, unspecified (principal); E11.9 Type 2 diabetes mellitus without complications; I10 Essential (primary) hypertension; D50.9 Iron deficiency anemia, unspecified
CPT/HCPCS: 80053; 80061; 82728; 83036; 83735; 84443

== ENCOUNTER 2025-07-02 10:50 | Outpatient (CLI) | payer MEDICARE, BC, SELFPAY ==
[2025-07-02 15:37] LABS: Alanine Aminotransferase 15 U/L (12-78); Albumin Level 4.7 g/dl (3.5-5.0); Albumin/Globulin Ratio 1.7 (1.1-1.8); Alkaline Phosphatase 62 U/L (38-126); Anion Gap 17.7 mEq/L (5-15); Aspartate Amino Transferase 28 U/L (14-36); Bilirubin,Total 1.1 mg/dl (0.2-1.3); Blood Urea Nitrogen 10 mg/dl (7-17); Calcium 10.2 mg/dl (8.4-10.2); Carbon Dioxide 25 mmol/L (22.0-30.0); Chloride 102 mmol/L (98-107); Cholesterol 148 mg/dl (140-200); Creatinine,Serum 0.60 mg/dl (0.52-1.04); Estimated Glomerular Filt Rate 102 ml/min (>60); GFR (African American) 123 ML/MIN (>60); Globulin 2.7 g/dL (1.3-3.2); Glucose 85 mg/dl (74-100); HDL Cholesterol 45 mg/dl (40-60); Magnesium 2.0 mg/dl (1.6-2.3); Potassium 4.7 mmoL/L (3.5-5.1); Sodium 140 mmol/L (136-145); Total Protein,Serum 7.4 g/dl (6.3-8.2); Triglycerides 144 mg/dl (30-150)
[2025-07-02 16:08] LABS: Thyroid Stimulating Hormone 0.38 uIU/mL (0.465-4.68)
[2025-07-02 16:13] LABS: Hemoglobin A1C 5.2 % (4.0-6.0)
--- OUTSIDE RECORDS SUMMARY | 2025-07-03 10:12 | XMS_ITS | Clinical Summary ---
Author Organization [facility] Address [address] [place] [address] Care Team Providers Care Russet Repairer Name Role Phone Ernestine Mcelroy APRN Primary Care Provider Allergies No known active allergies Medications OTEZLA 30 MG tablet 2 (Two) Times a Day. 01/17/2020 Active escitalopram (LEXAPRO) 10 MG tablet Take 10 mg by mouth Daily. 01/10/2020 Active pravastatin (PRAVACHOL) 20 MG tablet Daily. Active piroxicam (FELDENE) 20 MG capsule Take 20 mg by mouth Daily. 01/05/2020 Active metFORMIN (GLUCOPHAGE) 1000 MG tablet Take 1,000 mg by mouth 2 (Two) Times a Day With Meals. 01/03/2020 Active STELARA 90 MG/ML solution prefilled syringe Injection Every 3 (Three) Months. 01/03/2020 Active cetirizine (zyrTEC) 10 MG tablet Take 10 mg by mouth Daily. Active B Complex-C (SUPER B COMPLEX PO) Take by mouth Daily. 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 Not on file 09/2023 Does Anyone Keep You from Co ntacting Others or Doint Things Outside the Home? Not on file 07/14/2023 Physical Sign of Abuse Present Not on file 1 Housing Stability Answer Date Recorded Current Living Arrangements Not on file 07/03 Potentially Unsafe Housing Conditions Not on ludin e 07/14/2023 Family and Community Support Answer Alberto e Recorded Help with Day-to-Day Activities Not on file 07/14/2023 Lonely or Isolated Not on file 07/14/2023 Employment Answer Date Recorded Do you want help finding or keeping work or a reg b? Not on file 07/14/2023 Disabilities Answer Date Recorded Concentrating, Remembering, or Making Decisions Difficulty Not on file 07/14/2023 Doing Errands Independently Difficulty Not on fi le 07/14/2023 Education Answer Date Recorded Help with school or training? Not on file Preferred Language Not on file 07/14/2023 Comments Unknown Sex and Gender Information Value Date Recorded Sex Assigned at Not on file Legal Sex Female 11:16 AM EDT Gender Identity Not on file Sexual Orientation Not on file Occupation Industry Job Start Date Job End Date [employer] Not on file Not on file Not on file Last Filed Vital Signs Vital Sign Reading Time Taken Comments Blood Pressure 160/90 02/05/2020 10:43 AM EDT Pulse 104 02/05/2020 10:43 AM EDT Temperature 36.9 C (98.4 F) 02/05/2020 10:43 AM EDT Respiratory Rate 18 12/20/2018 1:51 PM EDT Oxygen Saturation 98% 02/05/2020 10:43 AM EDT Inhaled Oxygen Concentration - - Weight 93 kg (205 lb) 02/05/2020 10:43 AM EDT Height 157.5 cm (5' 2 ) 02/05/2020 10:43 AM EDT Body Mass Index 37.49 02/05/2020 10:43 AM EDT Plan of Treatment Health Maintenance Due Date Last Done Comments Annual Gynecologic Pelvic and Breast Exam 1965 MAMMOGRAM 2004 TDAP/TD VACCINES (2 - Tdap) 12/05/2006 12/05/1996 COLOGUARD 2009 COLON CANCER SCREENING 5 YEAR SIGMOIDOSCOPY 2009 COLONOSCOPY [address]CER SCREENING [address] COLONOGRAPHY 2009 FECAL OCCULT BLOOD TEST 2009 FIT Testing (1 year) 2009 Pneumococcal Vaccine 50+ (1 of 1 - PCV) 2014 ZOSTER VACCINE (1 of 2) 2014 ANNUAL PHYSICAL 01/23/2020 HEPATITIS C SCREENING 01/23/2020 INFLUENZA VACCINE 05/03/2025 Insurance [facility] P[facility] Member Subscriber Plan / Payer (Ef fective 2019-Present) Name:Alethea Alanis Relation to Subscriber:Self Name:Alethea Alanis Payer ID:[id number] (NAIC) Type:Not on file Address: [facility] [address] [place] [id number] Care Teams Russet Repairer Relationship Specialty Start Date End Date Ernestine Mcelroy APRN PCP - General Internal Medicine 12/22/18
== END 2025-07-02 23:59 ==
LOC: LAB.DROPOF 07-03 09:51
PROVIDERS: PCP Nurse Practitioner Family; Visit Provider Nurse Practitioner Family
DX: E11.9 Type 2 diabetes mellitus without complications (principal)
CPT/HCPCS: 80053; 80061; 83036; 83735; 84443

== ENCOUNTER 2025-07-08 07:51 | Outpatient (CLI) | payer MEDICARE, BC, SELFPAY ==
--- OUTSIDE RECORDS SUMMARY | 2025-07-08 07:53 | XMS_ITS | Continuity of Care Document ---
Author Organization [employer], [facility] Address [address] [place] [address] Assessment No assessment recorded. Plan of Treatment Reminders Order Date Submit Date Provider Last Modified By Organization Details Last Modified Time Details Appointments None recorded. Lab None recorded. Referral None recorded. Procedures None recorded. Surgeries None recorded. Imaging None recorded. Medication Orders Ozempic 1 mg/dose (4 mg/3 mL) subcutaneou s pen injector 2024 025 [facility] #[id number], [address] [place], [address], 10:02:49 Patient TargetsNo targets recorded. Patient InstructionsNo instructions recorded. Reason for Referral None Reported. Problems Name Problem SNOMED Code Status Onset Date Resolution Date Notes Provider Name and Address Organization Details Recorded Time Hyperlipidemia 07476699 Active 2024 JACKIE Pierre [address] [place] [address], [phone], [facility] 5 11:47:24 Essential hypertension 01744875 Active 2024 JACKIE Pierre [address] [place] [address], [phone], [facility] 5 11:47:20 Rheumatoid arthritis 40333193 Active 2024 JACKIE Pierre [address] [place] [address], [phone], [facility] 5 11:47:26 Type 2 diabetes mellitus 21170723 Active 2024 JACKIE Pierre [address] [place], [address], [facility] 11:47:22 Problem Notes None recorded. Procedures Surgical History Date Name Laterality Status Provider Name and Address Organization Details Recorded Time Appendectomy completed [facility] [employer] 01/21/2025 09:59:[address] [facility] [employer] 01/21/2025 09:59:[address] [facility] [employer] 01/21/2025 09:59:41 Imaging Results None recorded. Procedure Notes None recorded. Medical Equipment None Reported. Allergies Allergen ID Allergen Name Allergen Category Reaction Reaction Severity Criticality Documentation Date Start Date Code Code System Note Provider Name and Address Organization Details Recorded Time 41729 povidone- iodine medicatio n Not available Not available Not available 02/18/2025 8611 [facility] [employer] [facility] 08:02:46 Medications Name Sig Start Date Stop Date Status Note LastModified by Organization Details LastModified Time atorvastati n 40 mg tablet TAKE 1 TABLET BY MOUTH EVERY DAY active Not Available Not Available No t Available clobetasol 0.05 % topical cream APPLY TO AFFECTED AREA TWICE A DAY 01/21 completed Not Available Not Available Not Available phentermine 37.5 mg tablet TAKE 1 TABLET BY MOUTH EVERY DAY FOR 30 DAYS 03/18 completed Not Available Not Available Not Available aspirin 81 mg tablet,nette yed release TAKE 1 TABLET BY MOUTH EVERY DAY active Not Available Not Available No t Available triamcinolo ne acetonide 0.1 % topical cream APPLY TOPICALLY TO AFFECTED AREA THREE TIMES A DAY FOR 10 DAYS active Not Available Not Available No t Available fenofibrate micronized 134 mg capsule TAKE 1 CAPSULE BY MOUTH EVERY DAY active Not Available Not Available No t Available prednisone 10 mg tablets in a dose pack TAKE DIRECTED ON PACKAGE 01/21 completed Not Available Not Available Not Available amoxicillin 875 mg tablet TAKE 1 TABLET BY MOUTH TWICE A DAY FOR 10 DAYS 01/21 completed Not Available Not Available Not Available methotrexat e sodium 2.5 mg tablet TAKE 4 TABLETS BY MOUTH WEEKLY active Not Available Not Available No t Available losartan 25 mg tablet TAKE 1 TABLET BY MOUTH EVERY DAY active Not Available Not Available No t Available folic acid 1 mg tablet TAKE 1 TABLET BY MOUTH EVERY DAY active Not Available Not Available No t Available clobetasol 0.05 % scalp solution APPLY 1 APPLICATI ON TO SCALP EVERY DAY 01/21 completed Not Available Not Available Not Available cefdinir 300 mg capsule TAKE 1 CAPSULE BY MOUTH TWICE A DAY FOR 10 DAYS 01/21 completed Not Available Not Available Not Available metformin ER 500 mg tablet,exte nded release 24 hr TAKE 1 TABLET BY MOUTH EVERY DAY FOR 90 DAYS 01/21 completed Not Available Not Available Not Available escitalopra m 10 mg tablet TAKE 1 TABLET BY MOUTH EVERY DAY 01/21 completed Not Available Not Available Not Available metformin ER 750 mg tablet,exte nded release 24 hr TAKE 1 TABLET BY MOUTH EVERY DAY active Not Available Not Available No t Available Cosentyx 300 mg/2 Syringes (150 mg/mL) subcutaneou s syringe Inject 2 mL every 4 weeks by subcutane ous route. active Not Available Not Available No t Available Ozempic 1 mg/dose (4 mg/3 mL) subcutaneou s pen injector Inject 1 mg every week by subcutane ous route for 28 days. 2024 active Not Available Not Available Not Avai lable Ozempic 0.25 mg or 0.5 mg (2 mg/3 mL) subcutaneou s pen injector INJECT 0.5 MG EVERY WEEK BY SUBCUTANE OUS ROUTE FOR 28 DAYS, FOR DIABETES. 05/13 completed Not Available Not Available Not Available Vitals Date Recorded Body height Body mass index (BMI) Body weight Body temperature Heart rate Oxygen saturation Oxygen saturation in Arterial blood by Pulse oximetry Systolic And Diastolic Provider Name and Address Organization Details Last Updated DateTime 5 157.48 cm 32.7 kg/m2 84384.0 3 g 97.6 [degF] 72 /min 99 % 99 % 116/78 mm[Hg] Mackenzie Grace [facility] 5 08:04:34 Social History Question Answer Notes LastModified by Organizat ion Details LastModified Time Tobacco Smoking Status Former Smoker Mackenzie Grace [place] [facility] 01/21/2025 09:59:41 Do You Have An Advance Directive? No Information not available 01/21/2025 Is Your Home Air Conditioned? Yes Information not available 01/21/2025 If You Are , What Was Your Level Of Alcohol Consumption Prior To ? None Information not available 01/21/2025 Do You Wear A Helmet When Biking? No Information not available 01/21/2025 Are You Blind Or Do You Have Difficulty Seeing? No Information not available 01/21/2025 What Is Your Level Of Caffeine Consumption? Occasional Information not available 01/21/2025 What Type Of Professor Of Political Science Do You Use? None Information not available 01/21/2025 Have You Been To An Area Known To Be High Risk For COVID-19? No Information not available 01/21/2025 Are You Deaf Or Do You Have Serious Difficulty Hearing? No Information not available 01/21/2025 What Type Of Diet Are You Following? REGULAR Information not available 01/21/2025 What Is The Highest Grade Or Level Of School You Have Completed Or The Highest Degree You Have Received? [id number] Information not available 01/21/2025 Have There Been Any Changes To Your Family Or Social Situation? No Information no t available 01/21/2025 When Did You Quit Smoking? 11-15yearssinkristie dumont Information not available 01/21/2025 Are There Any Guns Present In Your Home? No Information not available 01/21/2025 Which Of Your Hands Is Dominant? Right Information not available 01/21/2025 Do You Have A Medical Power Of Research Software Engineer? No Information not available 01/21/2025 What Was The Date Of Your Most Recent Tobacco Screening? 05/13/2025 Information not available 05/13/2025 Do You Have Any Pets? Yes Information not available 01/21/2025 Do You Use Protection During Sex? No Information not available 01/21/2025 What Is Your Relationship Status? Information not available 01/21/2025 Have You Repeated Any Grades? No Information not available 01/21/2025 Do You Use Your Seat Belt Or Car Seat Routinely? Yes Information not available 01/21/2025 Are You Sexually Active? Yes Information not available 01/21/2025 Do You Have Any Siblings? Yes Information not available 01/21/2025 Do You Have Smoke And Carbon Monoxide Detectors In Your Home? Yes Information not available 01/21/2025 At What Age Did You Start Smoking Tobacco? 12 Information not available 01/21/2025 Are You Passively Exposed To Smoke? No Information no t available 01/21/2025 Are There Any Smokers In Your House? No Information not available 01/21/2025 Do You Use Sunscreen Routinely? No Information not available 01/21/2025 Has Tobacco Cessation Counseling Been Provided? No Information not available 01/21/2025 How Many Years Have You Smoked Tobacco? 35 Information not available 01/21/2025 Have You Recently Traveled Abroad? No Information not available 01/21/2025 Do You Have Difficulty Walking Or Climbing Stairs? No Information not available 01/21/2025 Are You Currently In School? No Information not available 01/21/2025 What Contraceptive Method Was Reported At Start Of This Visit? Female Sterilization Information not available 01/21/2025 Do You Have Any Dietary Restrictions? No Information not available 01/21/2025 Sex: Unknown Functional Status Question Answer Note LastModified by Organizat ion Details LastModified Time Do you use any illicit or recreational drugs? No Information not available 01/21/2025 Do you or have you ever used any other forms of tobacco or nicotine? No Quit Date 2013 Information not available 03/18/2025 What is your level of alcohol consumption? None Information not available 01/21/2025 Are you currently employed? No Information not available 01/21/2025 Do you have transportation difficulties? No Information not available 01/21/2025 Are you able to walk independently without assistance or assistive devices? YESWOREST Information not available 01/21/2025 Do you have difficulty doing errands alone? No Information not available 01/21/2025 Are you able to care for yourself independently? Yes Information not available 01/21/2025 Do you have difficulty dressing, bathing, grooming, or toileting? No Information not available 01/21/2025 What is your exercise level? None Information not available 01/21/2025 Mental Status Question Answer Note LastModified by Organizat ion Details LastModified Time Do you feel stressed (tense, restless, nervous, or anxious, or unable to sleep at night)? [id number] Information not available 01/21/2025 Do you have difficulty concentrating, remembering or making decisions? No Information no t available 01/21/2025 Are you or have you been involved with bullying? No Information not available 01/21/2025 Family History Relationship Description Onset Age of this Age Resolved Age Notes LastModified by Organization Details LastModified Time Paternal Grandmother Heart disease Not available 2024 09:59:39 Paternal Grandfather Heart disease Not available 2024 09:59:39 Father Heart disease Not available 2024 09:59:39 Medical History Condition Response Diabetes Y Rheumatoid Arthritis Y Arthritis Y High Cholesterol Y Gynecological History Statement/Question Response Menses Monthly N HPV Vaccine N Date of Last Pap Smear Current Control Method Hysterectom y Most Recent Mammogram Age at First Child 19 Obstetrics History GPAL:G 3 P 3 0 0 3 Type Value Multiple Births 0 Full Term 3 Induced 0 Spontaneous 0 Premature 0 Living 3 Ectopics 0 Total 3 Immunizations Vaccine Type Date Status Note Provider Nam e and Address Organization Details Recorded Time Td (adult), 2 Lf tetanus toxoid, preservative free, adsorbed 7 completed Not Available Count includes the [facility] 05/13/2025 07:51:35 COVID-19, mRNA, LNP-S, PF, 30 mcg/0.3 mL dose 1 completed Not Available [facility] 05/13/2025 07:51:35 COVID-19, mRNA, LNP-S, PF, 30 mcg/0.3 mL dose 1 completed Not Available [facility] 05/13/2025 07:51:35 Past Encounters Encounter ID Performer Location Encounter Start Date Encounter Closed Date Diagnosis/Indication Diagnosis SNOMED-CT Code Diagnosis ICD10 Code Diagnosis IMO Codes Diagnosis Note [id number] JACKIE Pierre [facility] [address] [place] [address] 04/15/2025 07:52:01 04/15/2025 08:19:23 Type 2 diabetes mellitus 17594711 E11.9 Increase Ozempic 1 mg weekly [id number] JACKIE Pierre [facility] [address] [place] [address] 05/13/2025 07:51:08 05/13/2025 08:25:23 Type 2 diabetes mellitus 64286145 E11.9 Health Concerns Section Related Observation LastModified by Organization Detai ls LastModified Time None Recorded Concern Status LastModified by Organization Details LastModified Time None Recorded Payers Encounter Date Sequence Insurance Name Policy Number Policy Pedroza Covered Member ID Pedroza Member ID Guarantor Name 05/13/2025 1 [place] Alethea Alanis [id number] Alethea Alanis 05/13/2025 2 [place] [id number] Alethea Alanis [id number] Alethea Alanis Notes Date Note Type Note Provider Name and Address Organization Details Recorded Time 05/13/2025 text/html ROS as noted in the HPI Patient presents to followup on Ozempic. Tolerating it well. Nausea and constipation have resolved. She has lost 9 pounds. JACKIE Pierre [address] [place] [address], [phone], [facility] [employer] 05/13/2025 10:03:38 OBGyn Episode No OBEpisode recorded.
--- OUTSIDE RECORDS SUMMARY | 2025-07-08 07:53 | XMS_ITS | Clinical Summary ---
Author Organization [facility] Address [address] [place] [address] Phone Care Team Providers Care Trade Union Official Name Role Phone Lloyd Muhammad MD Unavailable [phone] [ ] Conditions or Problems Problem Name Problem Code Onset Date Status Entry Date Provider Comment Standard Description Annotate Other obesity due to excess calories 042929432 (SNOMED CT) 03/10 Active 03/10 Elbatejinder Franco Simple obesity Infection, skin and soft tissue 86040184 (SNOMED CT) 03/10 Active 03/10 Estee Edelen Soft tissue infection Acute osteomyeliti s, right index finger 13633380 (SNOMED CT) 03/10 Active 03/10 Estee Edelen Acute osteomyelitis of hand Cigarette smoker 20618004 (SNOMED CT) 03/10 Active 03/10 Estee Edelen Cigarette smoker Cellulitis of right finger L03.011 (ICD-10-CM) 03/10 Active 03/10 Estee Edelen Cellulitis of right finger Drug rash 18825603 (SNOMED CT) 01/19 Active 01/19 Jennifer Molina RN Eruption caused by drug Psoriatic Arthritis 42421051 (SNOMED CT) 12/19 Active 12/19 Molly Hitchcock Psoriasis with arthropathy Cellulitis of left finger L03.012 (ICD-10-CM) 12/18 Active 12/18 Sole Adán Cellulitis of left finger Infective (teno)synovi tis, right hand/finger (document bacterial agent) M65.141 (ICD-10-CM) 12/18 Inactive 12/18 Jennifer Kaz Other infective (teno)synoviti s, right hand Problem excluded fro m report: Trigger finger of right middle finger 7704725 (SNOMED CT) 12/18 Inactive 12/18 Jennifer Kaz Acquired trigger finger Problem excluded fro m report: Trigger finger of left middle finger 7388276 (SNOMED CT) 12/20 Active 12/20 Jennifer Kaz Acquired trigger finger Infective (teno)synovi tis, left hand/finger 921796663 (SNOMED CT) 12/20 Active 12/20 Jennifer Kaz Synovitis/teno synovitis - hand Psoriasis, hands 1006075 (SNOMED CT) 12/19 Inactive 12/19 Fabrizio Sue [...] hand Trigger finger of right middle finger 0113598 (SNOMED CT) 12/18 Removed 12/18 Sole Adán Acquired trigger finger Medications Medication Instructions Start Date Stop Date Generic Name ND Provider AMOXICILLIN-POT CLAVULANATE 875-125 MG TABS Take 1 tablet by mouth twice a day amoxicillin-pot clavulanate 88564024886 Lloyd Muhammad MD MELOXICAM 15 MG TABS by mouth once a day meloxicam 40514257404 Tasia January GABAPENTIN 100 MG CAPS by mouth once a day gabapentin 27070955175 Tasia January AMOXICILLIN-POT CLAVULANATE 875-125 MG TABS Take 1 tablet by mouth twice a day amoxicillin-pot clavulanate 02943674747 Lloyd Muhammad MD GABAPENTIN 100 MG CAPS by mouth once a day gabapentin 66374537014 Bonnie Flores MELOXICAM 15 MG TABS by mouth once a day meloxicam 69339049816 Bonnie Flores ESCITALOPRAM OXALATE 10 MG TABS by mouth once a day escitalopram oxalate 32629968449 Bonnie Flores Super B Maxi Complex unspecified unspecified by mouth once a day vitamin b complex-folic acid 35550969114 Bonnie Flores PRAVACHOL 20 MG ORAL TABLET Take 1 by mouth once a day PRAVACHOL 20 MG ORAL TABLET Elba Franco ALL DAY ALLERGY 10 MG ORAL CAPSULE by mouth once a day ALL DAY ALLERGY 10 MG ORAL CAPSULE Elba Franco METFORMIN HCL 500 MG TABS Take 1 by mouth once a day metformin 64476988539 Elab Franco CALCIUM 600+D3 600-200 MG-UNIT ORAL TABLET Take by mouth twice a day CALCIUM 600+D3 600-200 MG-UNIT ORAL TABLET Elba Franco MELOXICAM 15 MG TABS Take 1 by mouth once a day meloxicam 04069561951 Elba Franco SUPER B-COMPLEX CAPS Take by mouth twice a day B [id number] A Elba Franco STELARA 45 MG/0.5ML SOLN 1 every three months ustekinumab 30175539451 Elba Franco SULFASALAZINE 500 MG TABS by mouth once a day sulfasalazine 97903570746 Elba Franco CETIRIZINE HCL 10 MG TABS 1 once a day cetirizine 15444432680 Elba Franco LEXAPRO 10 MG TABS 1 once a day escitalopram oxalate 57446011882 Elba Franco LOSARTAN POTASSIUM 25 MG TABS 1 once a day losartan 90281486125 Elba Franco METFORMIN HCL 850 MG TABS 1 twice a day metformin 34713478141 Elba Franco PRAVASTATIN SODIUM 20 MG TABS 1 once a day pravastatin 45668625308 Elba Franco CALCIUM 600+D3 600-200 MG-UNIT ORAL TABLET Take by mouth twice a day CALCIUM CARB-CHOLECALCIF ROGELIO 40975182576 Fabrizio Sue MD SUPER B-COMPLEX CAPS Take by mouth twice a day B [id number] A 72774345122 Fabrizio Sue MD PRAVACHOL 20 MG ORAL TABLET Take one by mouth daily PRAVASTATIN SODIUM 83221065214 Fabrizio Sue MD METFORMIN HCL 500 MG TABS Take one by mouth daily METFORMIN HCL 12386837093 Fabrizio Sue MD MELOXICAM 15 MG TABS Take one by mouth daily MELOXICAM 99407888835 Fabrizio Sue MD STELARA 45 MG/0.5ML SOLN 1 shot every thrre months USTEKINUMAB 09031245429 Fabrizio Sue MD TYGACIL SOLR 50mg IV Bid TIGECYCLINE SOLR 94554864631 Zeenat Cabrera RN TYGACIL SOLR 50mg IV Bid TIGECYCLINE SOLR 68945484697 Jennifer Molina RN CEFTRIAXONE SODIUM (IV) SOLR Rocephin 2G IV q24hrs OPAT CEFTRIAXONE SODIUM SOLR 34246933935 Jennifer Molina RN CUBICIN SOLUTION RECONSTITUTED Cubicin 500mg IV q24hrs OPAT DAPTOMYCIN SOLR 64745447711 Jennifer Molina RN FLUCONAZOLE 200 MG TABS one tablet daily FLUCONAZOLE 32156867719 Fabrizio Sue MD CUBICIN SOLUTION RECONSTITUTED Cubicin 500mg IV q24hrs OPAT DAPTOMYCIN SOLR 02533975897 Karina Welch RN CEFTRIAXONE SODIUM (IV) SOLR Rocephin 2G IV q24hrs OPAT CEFTRIAXONE SODIUM SOLR 21020680363 Karina Welch RN SULFASALAZINE 500 MG TABS by mouth daily SULFASALAZINE 21475571423 Gasper K ALL DAY ALLERGY 10 MG ORAL CAPSULE by mouth daily CETIRIZINE HCL 62304143364 Gasper K Medications Administered No information available. Allergies, Adverse Reactions, Alerts No information available. Results Date Name Value Unit Range Flag Description External Other: Patient courtney al update - Email Push, [facility] ... PAT E-MAIL [email or web address] patient's e-mail address External Other: Patient courtney matute update - AccountStatus, [facility] I ... PATPORTALPIN Active This samantha l be [...] or Plasma Office Visit: room 1 DIET PRIVATE PILOT yes Dietary management education, guidance, and counseling [...] Name Date Entry Date CPT-sl STAT Labs [id number] CBC with Differential 2018 CPT-42336 C- reactive protein CPT-CLR Central Line Removal CPT-DC Discontinue IV antibiotics 2 CPT-CLR Central Line Removal CPT-denzel Change IV antibiotics 01/22 CPT-J3243 Tigecycline CPT-denzel Change IV antibiotics 01/19 CPT-98631 ECG ROUTINE ECG W/LEAST 12 LDS W/I&R 2018 CPT-ca Continue IV antibiotics 2018 CPT-ca Continue IV antibiotics 2018 CPT-ca Continue IV antibiotics 2018 CPT-ca Continue IV antibiotics 2018 CPT-95167 CMP CPT-20792 US, Abdomen RUQ CPT-09111 CMP [id number] CBC with Differential 2018 CPT-34157 C- reactive protein [id number], [id number] CPK CPT-velia New IV antibiotic CPT-79297 PICC Line Insertion CPT- stat weekly Stat [...]
--- OUTSIDE RECORDS SUMMARY | 2025-07-08 07:54 | XMS_ITS | Clinical Summary ---
Author Organization [facility] Address [address] [place] [address] Care Team Providers Care Dinkey Engine Firer/Fireman Name Role Phone Ernestine Mcelroy APRN Primary [...] SCREENING 01/23/2020 INFLUENZA VACCINE 05/03/2025 Insurance [facility] PPO Member Subscriber Plan / Payer (Ef fective 2019-Present) Name:Alethea Alanis Relation to Subscriber:Self Name:Alethea Alanis Payer ID:[id number] (NAIC) Type:Not on file Address: [facility] [id number] [place] [id number] Care Teams Dinkey Engine Firer/Fireman Relationship Specialty Start Date End Date Ernestine Mcelroy APRN PCP - General Internal Medicine 12/22/18
--- OUTSIDE RECORDS SUMMARY | 2025-07-08 07:54 | XMS_ITS | Data Portability ---
Author Organization [employer] [place] [facility] Address [address] [place] [address] Assessment No assessment recorded. Plan of Treatment Reminders Order Date Submit Date Provider Last Modified By Organization Details Last Modified Time Details Appointments None recorded. Lab unlisted lab - toxassure flex 19, [id number] 2024 025 [facility], [address] [place] [address], [address], 5 15:35:07 HbA1c (hemoglobin A1c), blood [address], [facility] [place], [address], 5 10:23:58 microalbumi n/creatinin e, mass ratio, urine [address], [address] [place], [address], 5 10:23:58 unlisted lab - toxassure flex 19, [id number] 2024 025 [facility]), [facility] [place], [address], 5 21:08:06 Referral None recorded. Procedures None recorded. Surgeries None recorded. Imaging None recorded. Medication Orders Ozempic 1 mg/dose (4 mg/3 mL) subcutaneou s pen injector 2024 025 [facility], [address] [place], [address], 5 10:02:49 Ozempic 1 mg/dose (4 mg/3 mL) subcutaneou s pen injector 2024 025 [facility], [address] [place], [address], 5 08:15:33 Ozempic 0.25 mg or 0.5 mg (2 mg/3 mL) subcutaneou s pen injector [address], [address] [place], [address], 5 08:04:48 Adipex-P 37.5 mg tablet 2024 025 [facility], [address] [place], [address], 5 08:19:04 Patient TargetsNo targets recorded. Patient Instructions Encounter Date Encounter Id Patient Instructions Last Modified By Organization Details Last Modified Time 01/21/2025 [id number] learning about type 2 diabetes Not available 01/21/2025 10:23:58 type 2 diabetes: care instructions [email or web address] Not available 01/21/2025 10:23:58 high cholesterol : care instructions [email or web address] Not available 01/22/2025 13:25:10 high blood pressure: care instructions [email or web address] Not available 01/22/2025 13:25:10 learning about high blood pressure Not available 01/22/2025 13:25:10 Rheumatoid Arthritis (RA): Care Instructions [email or web address] Not available 01/22/2025 13:25:10 body mass index: care instructions Not available 01/21/2025 10:23:42 learning about healthy weight [email or web address] Not available 01/21/2025 10:23:42 02/18/2025 [id number] learning about type 2 diabetes [email or web address] Not available 02/18/2025 08:30:29 type 2 diabetes: care instructions Not available 02/18/2025 08:30:29 high blood pressure: care instructions [email or web address] Not available 02/18/2025 08:30:29 learning about high blood pressure [email or web address] Not available 02/18/2025 08:30:29 high cholesterol : care instructions [email or web address] Not available 02/18/2025 08:30:29 Rheumatoid Arthritis (RA): Care Instructions [email or web address] Not available 02/18/2025 08:30:29 03/18/2025 [id number] learning about type 2 diabetes Not available 03/18/2025 11:47:41 type 2 diabetes: care instructions [email or web address] Not available 03/18/2025 11:47:41 04/15/2025 [id number] learning about type 2 diabetes [email or web address] Not available 04/15/2025 08:15:32 type 2 diabetes: care instructions [email or web address] Not available 04/15/2025 08:15:32 Reason for Referral None Reported. Results Created Date Observation Date Name Description Value Unit Range Abnormal Flag Note LastModifiedBy Organization Detail LastModifiedTime 01/22/20 25 01/23/2025 TOXAS SURE FLEX 19, UR summary report FINAL ===== ===== ===== ===== ===== ===== ===== ===== ===== ===== ===== ===== ===== === ToxAs sure Flex 19, Ur ===== ===== ===== ===== ===== ===== ===== ===== ===== ===== ===== ===== ===== === Test Resul t Flag Units NO DRUGS DETEC PA. ===== ===== ===== ===== ===== ===== ===== ===== ===== ===== ===== ===== ===== === Test Resul t Flag Units Ref Range Creat inine 63 mg/dL >=20 ===== ===== ===== ===== ===== ===== ===== ===== ===== ===== ===== ===== ===== === Decla red Medic ation s: Medic ation list was not provi ded. ===== ===== ===== ===== ===== ===== ===== ===== ===== ===== ===== ===== ===== === For clini mahad consu ltati on, pleas e call . ===== ===== ===== ===== ===== ===== ===== ===== ===== ===== ===== ===== ===== === Not Available [facility] ([facility]) [address] [place], [address], 01/23/2025 21:08:06 01/22/20 25 01/23/2025 TOXAS SURE FLEX 19, UR pdf . Not Available [facility] ([facility]) [address] [place], [address], 01/23/2025 21:08:06 01/22/20 25 01/23/2025 TOXAS SURE FLEX 19, UR creatinine 63 mg/dL REFER ENCE RANGE : Ref Range >=20 Not Available [facility] ([facility]) [address] [place], [address], 01/23/2025 21:08:06 01/22/20 25 01/23/2025 TOXAS SURE FLEX 19, UR amphetamines ia Negati ve NG/mL cutoff :300 Not Available [facility] ([facility]) [address] [place], [address], 01/23/2025 21:08:06 01/22/20 25 01/23/2025 TOXAS SURE FLEX 19, UR benzodiazepi florencia Negati ve Not Available [facility] ([facility]) [address] [place], [address], 01/23/2025 21:08:06 01/22/20 25 01/23/2025 TOXAS SURE FLEX 19, UR diazepam Not Detect ed NG/mg _crea t Not Available [facility] ([facility]) [address] [place], [address], 01/23/2025 21:08:06 01/22/20 25 01/23/2025 TOXAS SURE FLEX 19, UR desmethyldia zepam Not Detect ed NG/mg _crea t Not Available [facility] ([facility]) [address] [place], [address], 01/23/2025 21:08:06 01/22/20 25 01/23/2025 TOXAS SURE FLEX 19, UR oxazepam Not Detect ed NG/mg _crea t Not Available [facility] ([facility]) [address] [place], [address], 01/23/2025 21:08:06 01/22/20 25 01/23/2025 TOXAS SURE FLEX 19, UR temazepam Not Detect ed NG/mg _crea t Expec pa metab olism of benzo diaze pine class drugs : Paren t Drug Detec pa Metab olite s ----- ----- - ----- ----- ----- ----- Diaze mercy: Desme thyld iazep am, Temaz epam, Oxaze mercy Chlor diaze poxid e: Desme thyld iazep am, Oxaze mercy Clora zepat e: Desme thyld iazep am, Oxaze mercy Halaz epam: Desme thyld iazep am, Oxaze mercy Temaz epam: Oxaze mercy Oxaze mercy: None Not Available [facility] ([facility]) [address] [place], [address], 01/23/2025 21:08:06 01/22/20 25 01/23/2025 TOXAS SURE FLEX 19, UR alprazolam Not Detect ed NG/mg _crea t Not Available [facility] ([facility]) [address] [place], [address], 01/23/2025 21:08:06 01/22/20 25 01/23/2025 TOXAS SURE FLEX 19, UR alpha-hydrox yalprazolam Not Detect ed NG/mg _crea t Not Available [facility] ([facility]) [address] [place], [address], 01/23/2025 21:08:06 01/22/20 25 01/23/2025 TOXAS SURE FLEX 19, UR desalkylflur azepam Not Detect ed NG/mg _crea t Not Available [facility] ([facility]) [address] [place], [address], 01/23/2025 21:08:06 01/22/20 25 01/23/2025 TOXAS SURE FLEX 19, UR lorazepam Not Detect ed NG/mg _crea t Not Available [facility] ([facility]) [address] [place], [address], 01/23/2025 21:08:06 01/22/20 25 01/23/2025 TOXAS SURE FLEX 19, UR alpha-hydrox ytriazolam Not Detect ed NG/mg _crea t Not Available [facility] ([facility]) [address] [place], [address], 01/23/2025 21:08:06 01/22/20 25 01/23/2025 TOXAS SURE FLEX 19, UR clonazepam Not Detect ed NG/mg _crea t Not Available [facility] ([facility]) [address] [place], [address], 01/23/2025 21:08:06 01/22/20 25 01/23/2025 TOXAS SURE FLEX 19, UR 7-aminoclona zepam Not Detect ed NG/mg _crea t Not Available [facility] ([facility]) [address] [place], [address], 01/23/2025 21:08:06 01/22/20 25 01/23/2025 TOXAS SURE FLEX 19, UR midazolam Not Detect ed NG/mg _crea t Not Available [facility] ([facility]) [address] [place], [address], 01/23/2025 21:08:06 01/22/20 25 01/23/2025 TOXAS SURE FLEX 19, UR alpha-hydrox ymidazolam Not Detect ed NG/mg _crea t Not Available [facility] ([facility]) [address] [place], [address], 01/23/2025 21:08:06 01/22/20 25 01/23/2025 TOXAS SURE FLEX 19, UR flunitrazepa m Not Detect ed NG/mg _crea t Not Available [facility] ([facility]) [address] [place], [address], 01/23/2025 21:08:06 01/22/20 25 01/23/2025 TOXAS SURE FLEX 19, UR desmethylflu nitrazepam Not Detect ed NG/mg _crea t Not Available [facility] ([facility]) [address] [place], [address], 01/23/2025 21:08:06 01/22/20 25 01/23/2025 TOXAS SURE FLEX 19, UR cocaine metabolite ia Negati ve NG/mL cutoff :150 Not Available [facility] ([facility]) [address] [place], [address], 01/23/2025 21:08:06 01/22/20 25 01/23/2025 TOXAS SURE FLEX 19, UR ethanol biomarkers ia Negati ve NG/mL cutoff :500 Not Available [facility] ([facility]) [address] [place], [address], 01/23/2025 21:08:06 01/22/20 25 01/23/2025 TOXAS SURE FLEX 19, UR cannabinoids ia Negati ve NG/mL cutoff :20 Not Available [facility] ([facility]) [address] [place], [address], 01/23/2025 21:08:06 01/22/20 25 01/23/2025 TOXAS SURE FLEX 19, UR 6-acetylmorp manav ia Negati ve NG/mL cutoff :10 Not Available [facility] ([facility]) [address] [place], [address], 01/23/2025 21:08:06 01/22/20 25 01/23/2025 TOXAS SURE FLEX 19, UR opiate class ia Negati ve NG/mL cutoff :100 Not Available [facility] ([facility]) [address] [place], [address], 01/23/2025 21:08:06 01/22/20 25 01/23/2025 TOXAS SURE FLEX 19, UR oxycodone class ia Negati ve NG/mL cutoff :100 Not Available [facility] ([facility]) [address] [place], [address], 01/23/2025 21:08:06 01/22/20 25 01/23/2025 TOXAS SURE FLEX 19, UR methadone ia Negati ve NG/mL cutoff :100 Not Available [facility] ([facility]) [address] [place], [address], 01/23/2025 21:08:06 01/22/20 25 01/23/2025 TOXAS SURE FLEX 19, UR methadone mtb ia Negati ve NG/mL cutoff :100 Not Available [facility] ([facility]) [address] [place], [address], 01/23/2025 21:08:06 01/22/20 25 01/23/2025 TOXAS SURE FLEX 19, UR buprenorphin e ia Negati ve NG/mL cutoff :5.0 Not Available [facility] ([facility]) [address] [place], [address], 01/23/2025 21:08:06 01/22/20 25 01/23/2025 TOXAS SURE FLEX 19, UR fentanyl ia Negati ve NG/mL cutoff :2.0 Not Available [facility] ([facility]) [address] [place], [address], 01/23/2025 21:08:06 01/22/20 25 01/23/2025 TOXAS SURE FLEX 19, UR tapentadol ia Negati ve NG/mL cutoff :200 Not Available [facility] ([facility]) [address] [place], [address], 01/23/2025 21:08:06 01/22/20 25 01/23/2025 TOXAS SURE FLEX 19, UR propoxyphene ia Negati ve NG/mL cutoff :300 Not Available [facility] ([facility]) [address] [place], [address], 01/23/2025 21:08:06 01/22/20 25 01/23/2025 TOXAS SURE FLEX 19, UR tramadol ia Negati ve NG/mL cutoff :200 Not Available [facility] ([facility]) [address] [place], [address], 01/23/2025 21:08:06 01/22/20 25 01/23/2025 TOXAS SURE FLEX 19, UR methylphenid ate ia Negati ve NG/mL cutoff :100 Not Available [facility] ([facility]) [address] [place], [address], 01/23/2025 21:08:06 01/22/20 25 01/23/2025 TOXAS SURE FLEX 19, UR barbiturates ia Negati ve NG/mL cutoff :200 Not Available [facility] ([facility]) [address] [place], [address], 01/23/2025 21:08:06 01/22/20 25 01/23/2025 TOXAS SURE FLEX 19, UR phencyclidin e ia Negati ve NG/mL cutoff :25 Not Available [facility] ([facility]) [address] [place], [address], 01/23/2025 21:08:06 01/22/20 25 01/23/2025 TOXAS SURE FLEX 19, UR gabapentin ia Negati ve ug/mL cutoff :1.0 Not Available [facility] ([facility]) [address] [place], [address], 01/23/2025 21:08:06 01/22/20 25 01/23/2025 TOXAS SURE FLEX 19, UR anticonvulsa nts Negati ve Not Available [facility] ([facility]) [address] [place], [address], 01/23/2025 21:08:06 01/22/20 25 01/23/2025 TOXAS SURE FLEX 19, UR pregabalin Not Detect ed Not Available [facility] ([facility]) [address] [place], [address], 01/23/2025 21:08:06 01/22/20 25 01/23/2025 TOXAS SURE FLEX 19, UR carisoprodol ia Negati ve NG/mL cutoff :100 Not Available [facility] ([facility]) [address] [place], [address], 01/23/2025 21:08:06 01/22/20 25 01/21/2025 micro album in/cr eatin ine, mass ratio , urine Microalbumin 30 mg/L Not Available [facility] [address] [place] [address], [address], 01/21/2025 10:11:25 01/22/20 25 01/21/2025 micro album in/cr eatin ine, mass ratio , urine Creatinine 100 mg/dL Not Available [facility] [address] [place] [address], [address], 01/21/2025 10:11:25 01/22/20 25 01/21/2025 micro album in/cr eatin ine, mass ratio , urine Ratio 30-300 mg/g Not Available [facility] [address] [place] [address], [address], 01/21/2025 10:11:25 01/22/20 25 01/21/2025 HbA1c (hemo globi n A1c), blood HbA1c 8.0 % Not Available [facility] [address] [place] [address], [address], 01/21/2025 10:11:18 Result Notes None recorded. Problems Name Problem SNOMED Code Status Onset Date Resolution Date Notes Provider Name and Address Organization Details Recorded Time Hyperlipidemia 16662312 Active 2024 JACKIE Pierre [address] [place] [address], [address], [employer] 5 11:47:24 Essential hypertension 61673175 Active 2024 JACKIE Pierre [address] [place] [address], [address], [employer] 5 11:47:20 Rheumatoid arthritis 92060377 Active 2024 JACKIE Pierre [address] [place] [address], [address], [employer] 11:47:26 Type 2 diabetes mellitus 67679353 Active 2024 JACKIE Pierre [address] [place] [address], [address], [employer] 11:47:22 Problem Notes None recorded. Procedures Surgical History Date Name Laterality Status Provider Name and Address Organization Details Recorded Time [facility] 01/21/2025 09:59:41 Gallbladder Surgery completed [facility] 01/21/2025 09:59:41 Total Hysterectomy completed [email or web address] 01/21/2025 09:59:41 Imaging Results None recorded. Procedure Notes None recorded. Medical Equipment None Reported. Allergies Allergen ID Allergen Name Allergen Category Reaction Reaction Severity Criticality Documentation Date Start Date Code Code System Note Provider Name and Address Organization Details Recorded Time 56103 povidone- iodine medicatio n Not available Not available Not available 02/18/[address] [facility], [facility] 08:02:46 Medications Name Sig Start Date [...] Available Not Available Vitals Date Recorded Body weight Body mass index (BMI) Body height Oxygen saturation Oxygen saturation in Arterial blood by Pulse oximetry Heart rate Body temperature Systolic And Diastolic Systolic And Diastolic Systolic And Diastolic Provider Name and Address Organization Details Last Updated DateTime 5 24911.3 4 g 37.9 kg/m2 157.48 cm 97 % 97 % 82 /min 98 [degF] 140/82 mm[Hg] 146/84 mm[Hg] 138/84 mm[Hg] [employer] 5 16:37:36 Date Recorded Body height Body mass index (BMI) Body weight Oxygen saturation Oxygen saturation in Arterial blood by Pulse oximetry Heart rate Body temperature Systolic And Diastolic Systolic And Diastolic Provider Name and Address Organization Details Last Updated DateTime 5 157.48 cm 36 kg/m2 65486.2 6 g 98 % 98 % 86 /min 97.7 [degF] 144/84 mm[Hg] 144/86 mm[Hg] [employer] 5 08:01:57 Date Recorded Body height Body mass index (BMI) Body weight Oxygen saturation Oxygen saturation in Arterial blood by Pulse oximetry Heart rate Body temperature Systolic And Diastolic Provider Name and Address Organization Details Last Updated DateTime 5 157.48 cm 35 kg/m2 85017.3 g 98 % 98 % 82 /min 97.7 [degF] 136/84 mm[Hg] [employer] 5 08:21:14 Date Recorded Body height Body mass index (BMI) Body weight Body temperature Heart rate Oxygen saturation Oxygen saturation in Arterial blood by Pulse oximetry Systolic And Diastolic Provider Name and Address Organization Details Last Updated DateTime 5 157.48 cm 34.5 kg/m2 19357.4 7 g 98.1 [degF] 79 /min 98 % 98 % 116/80 mm[Hg] Tosha Farris [employer] 5 08:01:00 Date Recorded Body height Body mass index (BMI) Body weight Body temperature Heart rate Oxygen saturation Oxygen saturation in Arterial blood by Pulse oximetry Systolic And Diastolic Provider Name and Address Organization Details Last Updated DateTime 5 157.48 cm 32.7 kg/m2 88297.0 3 g 97.6 [degF] 72 /min 99 % 99 % 116/78 mm[Hg] [employer] 5 08:04:34 Social History Question Answer Notes LastModified by Organizat ion Details LastModified Time Tobacco Smoking Status Former Smoker [facility]. 01/21/2025 09:59:41 Do You Have An Advance [...] Information not available 01/21/2025 What Type Of Pound Attendant Do You Use? None Information not available [...] Or The Highest Degree You Have Received? [id number] Information not available 01/21/2025 Have There Been Any Changes To Your Family Or Social Situation? No Information no t available 01/21/2025 When Did You Quit Smoking? 11-15yearssinkristie dumont Information not available 01/21/2025 Are There Any Guns Present In Your Home? No Information not available 01/21/2025 Which Of Your Hands Is Dominant? 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 No Information not available 01/21/2025 What Was [...] anxious, or unable to sleep at night)? CL1331-5 Information not available 01/21/2025 Do you have [...] preservative free, adsorbed 7 completed Not Available [facility] 05/13/2025 07:51:35 COVID-19, mRNA, LNP-S, PF, 30 mcg/0.3 mL dose 1 completed Not Available [facility] 05/13/2025 07:51:35 COVID-19, mRNA, LNP-S, PF, 30 mcg/0.3 mL dose 1 completed Not Available [facility] 05/13/2025 07:51:35 Past Encounters Encounter ID Performer Location Encounter Start Date Encounter Closed Date Diagnosis/Indication Diagnosis SNOMED-CT Code Diagnosis ICD10 Code Diagnosis IMO Codes Diagnosis Note [id number] JACKIE Pierre [address] [address] 01/21/2025 09:44:14 01/21/2025 10:34:26 Type 2 diabetes mellitus 71615947 E11.9 Body mass index 30+ - obesity 030485332 Z68.37 Long-term drug therapy 010145239 Z79.899 Hyperlipidemia 84307425 E78.5 Essential hypertension 89284948 I10 Rheumatoid arthritis 698 42036 M06.9 [id number] JACKIE Pierre [address] [address] 02/18/2025 07:51:16 02/18/2025 08:38:17 Type 2 diabetes mellitus 89754369 E11.9 Long-term drug therapy 219089574 Z79.899 Hyperlipidemia 34024801 E78.5 Essential hypertension 17248260 I10 Rheumatoid arthritis 698 48180 M06.9 [id number] JACKIE Pierre [address] [address] 03/18/2025 08:11:41 03/18/2025 08:33:50 Type 2 diabetes mellitus 38014564 E11.9 Increase Ozempic 0.5 mg weekly. RTC 1 month. [id number] JACKIE Pierre [address] [address] 04/15/2025 07:52:01 04/15/2025 08:19:23 Type 2 diabetes mellitus 97855519 E11.9 Increase Ozempic 1 mg weekly [id number] JACKIE Pierre [address] [address] 05/13/2025 07:51:08 05/13/2025 08:25:23 Type 2 diabetes mellitus 15590012 E11.9 Health Concerns Section Related Observation LastModified by Organization Detai ls LastModified Time None Recorded Concern Status LastModified by Organization Details LastModified Time None Recorded Advance Directives Directive N: Payers Insurance Date Sequence Insurance Name Policy Number Policy Pedroza Covered Member ID Pedroza Member ID Guarantor Name 05/10/2025 [place] Instant [employer] - [facility] Alethea Alanis [id number] Alethea Alanis 05/10/2025 2 [place] [id number] Alethea Alanis [id number] Alethea Alanis 05/10/2025 1 [place] Alethea Alanis [id number] Alethea Alanis Notes Date Note Type Note Provider Name and Address Organization Details Recorded Time 01/21/2025 text/html ROS as noted in the [facility] Patient presents to establish care. WOuld like help with weight loss. JACKIE Pierre [address] [place] [address], [address], [employer] 01/22/2025 13:25:13 02/18/2025 text/html ROS as noted in the [facility] Patient presents for followup. She has lost 11 pounds with Adipex. She is diabetic and wonders if she would qualify for a weight loss shot. JACKIE Pierre [address] [place], [address], [employer] 02/18/2025 10:39:07 03/18/2025 text/html ROS as noted in the [facility] Patient presents to followup on Ozempic. States she had some nausea, constipation initially but it is improving and she is tolerating the medicine well. JACKIE Pierre [address] [place] [address], [address], [employer] 03/18/2025 11:49:17 04/15/2025 text/html ROS as noted in the [facility] Patient presents to followup on Ozempic. Tolerating it well. Nausea and constipation have resolved. HgA1c 7.2 last week at another appointment. JACKIE Pierre [address] [place], [address], [employer] 04/15/2025 09:57:30 05/13/2025 text/html ROS as noted in the [facility] Patient presents to followup on Ozempic. Tolerating it well. Nausea and constipation have resolved. She has lost 9 pounds. JACKIE Pierre [address] [place] [address], [address], [facility] [employer] 05/13/2025 10:03:38 OBGyn Episode No OBEpisode recorded.
--- OUTSIDE RECORDS SUMMARY | 2025-07-08 07:54 | XMS_ITS | Data Portability ---
Author Organization [facility] CARMELITA ZimmermanS OJAI CLOSED Address [address] [facility] [place] [address] Care Team Providers Care Platform Architect Name Role Phone COOPER KENT Welt Wheeler CHIKI CELESTE Anesthesiology Physician Assistant ILYA FORD Primary Care Provider Assessment Encounter Date Assessment Date Assessment LastModified by Organization Details LastModified Time 04/16/2024 04/16/2024 58-year-old female with complex medical history seen today to follow-up on psoriasis, psoriatic arthritis. My impression and plan as below: [email or web address] Not available 04/16/2024 09:52:21 07/06/2024 07/06/2024 58-year-old female with complex medical history seen today to follow-up on psoriasis, psoriatic arthritis. My impression and plan as below: Not available 07/06/2024 08:32:31 01/15/2025 01/15/2025 59-year-old female with complex medical history seen today to follow-up on psoriasis, psoriatic arthritis. My impression and plan as below: Not available 01/15/2025 13:32:36 Plan of Treatment Reminders Order Date Submit Date Provider Last Modified By Organization Details Last Modified Time Details Appointments None recorded. Lab Mycobacteri um tuberculosi s stimulated gamma interferon, qual, blood 2023 024 [facility], [address] [place] [address], , [id number], 09:06:42 CBC w/ auto diff 2022 023 [facility], [address] [place] [address], [id number], 3 09:47:21 ALT (alanine aminotransf erase), serum or plasma 2022 023 [facility], [address] [place] [address], [id number], 3 10:00:30 AST/SGOT (aspartate aminotransf erase), serum or plasma 2022 023 [facility], [address] [place], [address], 3 10:00:26 creatinine, serum or plasma 2022 023 [facility], [address] [place] [address], [id number], 3 10:00:28 Referral None recorded. Procedures None recorded. Surgeries None recorded. Imaging None recorded. Medication Orders methotrexat e sodium 2.5 mg tablet 2023 024 [id number], [address] [place], [address], 4 08:44:09 folic acid 1 mg tablet 2023 024 [id number], [address] [place], [address], 4 08:44:09 clobetasol 0.05 % scalp solution 2022 023 [id number], [address] [place], [address], 3 08:50:34 Patient TargetsNo targets recorded. Patient InstructionsNo instructions recorded. Reason for Referral None Reported. Results Created Date Observation Date Name Description Value Unit Range Abnormal Flag Note LastModifiedBy Organization Detail LastModifiedTime 09/13/2009/13/2023 COMPL ETE BLOOD COUNT white blood cells 9.4 10*3/ uL 3.8-10 .8 normal Not Available [facility] [address] [place] [address], [address], 09/13/2023 09:47:21 09/13/20 23 09/13/2023 COMPL ETE BLOOD COUNT red blood cells 4.35 10*6/ uL 3.80-5 .20 normal Not Available [facility] [address] [place] [address], [address], 09/13/2023 09:47:21 09/13/20 23 09/13/2023 COMPL ETE BLOOD COUNT hemoglobin 12.7 g/dL 12.0-1 6.0 normal Not Available [facility] [address] [place] [address], [address], 09/13/2023 09:47:21 09/13/20 23 09/13/2023 COMPL ETE BLOOD COUNT hematocrit 36.8 % 35.0-4 7.0 normal Not Available [facility] [address] [place] [address], [address], 09/13/2023 09:47:21 09/13/20 23 09/13/2023 COMPL ETE BLOOD COUNT MCV 85 fL 80-100 normal Not Available [facility] [address] [place] [address], [address], 09/13/2023 09:47:21 09/13/2009/13/2023 COMPL ETE BLOOD COUNT MCH 29 pg 26-35 normal Not Available [facility] [address] [place] [address], [address], 09/13/2023 09:47:21 09/13/20 23 09/13/2023 COMPL ETE BLOOD COUNT MCHC 35 g/dL 32-36 normal Not Available [facility] [address] [place] [address], [address], 09/13/2023 09:47:21 09/13/20 23 09/13/2023 COMPL ETE BLOOD COUNT RDW 13.3 % 11.0-1 5.0 normal Not Available [facility] [address] [place] [address], [address], 09/13/2023 09:47:21 09/13/20 23 09/13/2023 COMPL ETE BLOOD COUNT MPV 7.1 fL 6.2-10 .5 normal Not Available [facility] [address] [place] [address], [address], 09/13/2023 09:47:21 09/13/20 23 09/13/2023 COMPL ETE BLOOD COUNT platelet count 295 10*3/ uL 150-40 0 normal Not Available [facility] [address] [place] [address], [address], 09/13/2023 09:47:21 09/13/20 23 09/13/2023 COMPL ETE BLOOD COUNT neutrophil,a bsolute 6.2 10*3/ uL 1.6-8. 4 normal Not Available [facility] [address] [place] [address], [address], 09/13/2023 09:47:21 09/13/20 23 09/13/2023 COMPL ETE BLOOD COUNT lymphocyte,a bsolute 2.5 10*3/ uL 0.4-5. 1 normal Not Available [facility] [address] [place] [address], [address], 09/13/2023 09:47:21 09/13/20 23 09/13/2023 COMPL ETE BLOOD COUNT monocyte,abs olute 0.6 10*3/ uL 0.0-1. 2 normal Not Available [facility] [address] [place] [address], [address], 09/13/2023 09:47:21 09/13/20 23 09/13/2023 COMPL ETE BLOOD COUNT eosinophil,a bsolute 0.1 10*3/ uL 0.0-0. 8 normal Not Available [facility] [address] [place] [address], [address], 09/13/2023 09:47:21 09/13/20 23 09/13/2023 COMPL ETE BLOOD COUNT basophil,abs olute 0.0 10*3/ uL 0.0-0. 3 normal Not Available [facility] [address] [place] [address], [address], 09/13/2023 09:47:21 09/13/20 23 09/13/2023 COMPL ETE BLOOD COUNT % neutrophils 66.1 % 42.0-7 8.0 normal Not Available [facility] [address] [place] [address], [address], 09/13/2023 09:47:21 09/13/20 23 09/13/2023 COMPL ETE BLOOD COUNT % lymphocytes 26.9 % 11.0-4 7.0 normal Not Available [facility] [address] [place] [address], [address], 09/13/2023 09:47:21 09/13/20 23 09/13/2023 COMPL ETE BLOOD COUNT % monocytes 6.1 % 0.0-11 .0 normal Not Available [facility] [address] [place] [address], [address], 09/13/2023 09:47:21 09/13/20 23 09/13/2023 COMPL ETE BLOOD COUNT % eosinophils 0.6 % 0.0-7. 0 normal Not Available [facility] [address] [place] [address], [address], 09/13/2023 09:47:21 09/13/20 23 09/13/2023 COMPL ETE BLOOD COUNT % basophils 0.3 % 0.0-3. 0 normal Not Available [facility] [address] [place] [address], [address], 09/13/2023 09:47:21 09/13/20 23 09/13/2023 COMPL ETE BLOOD COUNT nucleated red cells 0.1 % 0.0-0. 9 normal Not Available [facility] [address] [place] [address], [address], 09/13/2023 09:47:21 09/13/20 23 09/13/2023 COMPL ETE BLOOD COUNT nucleated RBCs, absolute 0.01 10*3/ uL not estab. normal Not Available [facility] [address] [place] [address], [address], 09/13/2023 09:47:21 09/13/20 23 09/13/2023 AST AST 24 U/L 0-32 normal Not Available [facility] [address] [place] [address], [address], 09/13/2023 10:00:26 09/13/20 23 09/13/2023 CREAT ININE creatinine 0.69 mg/dL 0.50-0 .95 normal Not Available [facility] [address] [place] [address], [address], 09/13/2023 10:00:28 09/13/20 23 09/13/2023 ALT ALT 13 U/L 0-33 normal Not Available [facility] [address] [place] [address], [address], 09/13/2023 10:00:30 12/15/19 24 12/18/2023 QUANT IFERO N TB GOLD qtb gold NEGATI VE negati ve normal Negat demi test resul t. M. tuber culos is compl ex infec tion unlik marguerite. Not Available [facility] [address] [place] [address], [address], 12/18/2023 09:06:42 12/15/19 24 12/18/2023 QUANT IFERO N TB GOLD nil 0.06 IU/mL normal Not Available [facility] [address] [place] [address], [address], 12/18/2023 09:06:42 12/15/19 24 12/18/2023 QUANT IFERO N TB GOLD mitogen nil 6.97 IU/mL normal Not Available [facility] [address] [place], [address], 12/18/2023 09:06:42 12/15/19 24 12/18/2023 QUANT IFERO N TB GOLD TB1 nil 0.01 IU/mL normal Not Available [facility] [address] [place], [address], 12/18/2023 09:06:42 12/15/19 24 12/18/2023 QUANT IFERO N TB GOLD TB2 nil 0.01 IU/mL normal The Nil tube value refle cts the backg round inter feron gamma immun e respo nse of the patie nt's blood sampl e. This value has been subtr acted from the patie nt's displ ayed TB and Mitog en resul ts. Lower than expec pa resul ts with the Mitog en tube preve nt false -nega tive Quant ifero n readi ngs by detec ting a patie nt with a poten tial immun e suppr essiv e condi tion and/o r subop timal pre-a nalyt ical speci men handl ing. The TB1 Antig en tube is coate d with the M. tuber culos is-sp ecifi c antig ens desig tyler to elici t respo nses from TB antig en prime d CD4+ helpe r T-lym phocy gal. The TB2 Antig en tube is coate d with the M. tuber culos is-sp ecifi c antig ens desig tyler to elici t respo nses from TB antig en prime d CD4+ helpe r and CD8+ cytot oxic T-lym phocy gal. For addit ional dollyr dee islas e refer to https :[email or web address] ron on.qu esthola Boxees. com/f aq/FA Q204 (This link is being provi ded for infor audi cunningham/ educa alex l purpo ses only. ) Not Available [facility] [address] [facility] [address], [address], 12/18/2023 09:06:42 Result Notes None recorded. Problems Name Problem SNOMED Code Status Onset Date Resolution Date Notes Provider Name and Address Organization Details Recorded Time Trigger finger Active 019 DARIEN FORD, OTR/L, CHT [address] [place], [address] , [facility] 02/05/2019 11:36:43 Problem Notes None recorded. Procedures Surgical History Date Name Laterality Status Provider Name and Address Organization Details Recorded Time 03/09/20 23 Op Note completed PORSCHE MCKENZIE MD [address], [address], [facility] 04/14/2023 09:10:20 03/09/20 23 Other completed Nancy De Santiago [facility] 03/16/2023 08:40:16 02/22/20 23 Remicade Infusion completed Hussain Tejeda [facility] 02/21/2023 12:44:25 02/09/20 23 Orthotic, FO, Static Custom completed DARIEN FORD, OTR/L, CHT [address] [place], [address], [facility] 02/08/2023 09:51:16 01/25/20 23 Op Note completed PORSCHE MCKENZIE MD [address] [place], [address], [facility] 01/24/2023 15:41:36 01/25/20 23 Other completed Annel Ryder [facility] [place] [facility] 02/08/2023 13:11:52 12/28/19 23 Remicade Infusion [place] Huss[place] Tej[place] [facility] 12/27/2022 13:42:26 11/01/19 23 Remicade Infusion [place] Contreras Kelley [place] [facility] 11/01/2022 11:33:02 08/30/20 22 Remicade Infusion [place] Contreras Kelley [place] [facility] 08/30/2022 14:56:11 08/04/20 22 Remicade Infusion completed Contreras Kelley [facility] 08/04/2022 11:38:30 07/21/20 22 Remicade Infusion completed Olga Macielsuze [facility] 07/21/2022 15:37:59 02/11/20 21 Injection Joint/Bursa, Small, w/o US completed CHIKI CELESTE MD [address] [place], [address], [facility] 02/10/2021 11:12:25 12/13/19 20 OT Manual Therapy completed DARIEN FORD, OTR/L, CHT [address] [place], [address], [facility] 12/13/2019 10:58:19 12/13/19 20 PT Paraffin Bath completed DARIEN FORD OTR/L, CHT [address] [place], [address], [facility] 12/13/2019 10:21:06 12/03/19 20 OT Therapeutic Exercise completed DARIEN FORD OTR/L, CHT [address] [place], [address], [facility] 12/03/2019 09:49:20 12/03/19 20 OT Manual Therapy completed DARIEN FORD OTR/L, CHT [address] [place], [address], [facility] 12/03/2019 08:53:33 12/03/19 20 PT Paraffin Bath completed DARIEN FORD OTR/L, CHT [address] [place], [address], [facility] 12/03/2019 08:53:33 11/26/19 20 OT Therapeutic Exercise completed DARIEN FORD OTR/L, CHT [address] [place], [address], [facility] 11/26/2019 12:14:24 11/26/19 20 OT Manual Therapy completed DARIEN FORD, OTR/L, CHT [address] [place], [address], [facility] 11/26/2019 12:14:27 11/26/19 20 PT Paraffin Bath completed DARIEN K LOGAN, OTR/L, CHT [address] [place], [address], [facility] 11/26/2019 08:56:20 11/19/19 20 OT Therapeutic Exercise completed DARIEN FORD, OTR/L, CHT [address] [place], [address], [facility] 11/19/2019 09:51:24 11/19/19 20 OT Manual Therapy completed DARIEN FORD, OTR/L, CHT [address] [place], [address], [facility] 11/19/2019 10:08:05 11/19/19 20 PT Paraffin Bath completed DARIEN FORD, OTR/L, CHT [address] [place], [address], [facility] 11/19/2019 09:51:24 11/19/19 20 PT Ultrasound completed DARIEN FORD, OTR/L, CHT [address] [place], [address], [facility] 11/19/2019 09:51:24 11/12/19 20 OT Therapeutic Exercise completed DARIEN FORD OTR/L, CHT [address] [place], [address], [facility] 11/12/2019 09:31:35 11/12/19 20 OT Manual Therapy completed DARIEN FORD, OTR/L, CHT [address] [place], [address], [facility] 11/12/2019 09:31:35 11/12/19 20 PT Paraffin Bath completed DARIEN FORD, OTR/L, CHT [address] [place], [address], [facility] 11/12/2019 09:31:35 11/12/19 20 PT Ultrasound completed DARIEN FORD, OTR/L, CHT [address] [place], [address], [facility] 11/12/2019 09:31:35 11/08/19 20 OT Therapeutic Exercise completed DARIEN FORD, OTR/L, CHT [address] [place], [address], [facility] 11/08/2019 09:05:19 11/08/19 20 OT Manual Therapy completed DARIEN FORD, OTR/L, CHT [address] [place], [address], [facility] 11/08/2019 09:05:19 11/08/19 20 PT Paraffin Bath completed DARIEN FORD, OTR/L, CHT [address] [place], [address], [facility] 11/08/2019 09:05:19 11/08/19 20 PT Ultrasound completed DARIEN FORD, OTR/L, CHT [address] [place], [address], [facility] 11/08/2019 09:05:19 11/05/19 20 OT Therapeutic Exercise completed DARIEN FORD, OTR/L, CHT [address] [place], [address], [facility] 11/05/2019 11:18:25 11/05/19 20 OT Manual Therapy completed DARIEN FORD, OTR/L, CHT [address] [place], [address], [facility] 11/05/2019 09:11:28 11/05/19 20 PT Paraffin Bath completed DARIEN FORD, OTR/L, CHT [address] [place], [address], [facility] 11/05/2019 09:11:29 11/05/19 20 PT Ultrasound completed DARIEN FORD, OTR/L, CHT [address] [place], [address], [facility] 11/05/2019 09:40:28 11/01/19 20 OT Therapeutic Exercise completed DARIEN FORD, OTR/L, CHT [address] [place], [address], [facility] 11/01/2019 10:12:04 11/01/19 20 OT Manual Therapy completed DARIEN FORD, OTR/L, CHT [address] [place], [address], [facility] 11/01/2019 10:11:45 11/01/19 20 PT Paraffin Bath completed DARIEN FORD, OTR/L, CHT [address] [place], [address], [facility] 11/01/2019 10:11:14 10/29/19 20 OT Therapeutic Exercise completed DARIEN FORD, OTR/L, CHT [address] [place], [address], [facility] 10/29/2019 09:39:35 10/29/19 20 OT Manual Therapy completed DARIEN FORD, OTR/L, CHT [address] [place], [address], [facility] 10/29/2019 09:39:21 10/29/19 20 PT Paraffin Bath completed DARIEN FORD, OTR/L, CHT [address] [place], [address], [facility] 10/29/2019 08:47:26 10/25/19 20 OT Therapeutic Exercise completed DARIEN FORD, OTR/L, CHT [address] [place], [address], [facility] 10/25/2019 10:00:30 10/25/19 20 OT Manual Therapy completed DARIEN FORD, OTR/L, CHT [address] [place], [address], [facility] 10/25/2019 10:00:30 10/25/19 20 PT Paraffin Bath completed DARIEN FORD, OTR/L, CHT [address] [place], [address], [facility] 10/25/2019 10:00:30 10/22/19 20 OT Therapeutic Exercise completed DARIEN FORD, OTR/L, CHT [address] [place], [address], [facility] 10/22/2019 08:52:51 10/22/19 20 OT Manual Therapy completed DARIEN FORD, OTR/L, CHT [address] [place], [address], [facility] 10/22/2019 09:37:54 10/22/19 20 PT Paraffin Bath completed DARIEN FORD, OTR/L, CHT [address] [place], [address], [facility] 10/22/2019 08:52:51 10/18/19 20 OT Therapeutic Exercise completed DARIEN FORD, OTR/L, CHT [address] [place], [address], [facility] 10/18/2019 09:44:59 10/18/19 20 OT Manual Therapy completed DARIEN FORD, OTR/L, CHT [address] [place], [address], [facility] 10/18/2019 08:52:35 10/18/19 20 PT Paraffin Bath completed DARIEN FORD, OTR/L, CHT [address] [place], [address], [facility] 10/18/2019 08:52:36 10/15/19 20 OT Therapeutic Exercise completed DARIEN FORD, OTR/L, CHT [address] [place], [address], [facility] 10/15/2019 09:40:05 10/15/19 20 OT Manual Therapy completed DARIEN FORD, OTR/L, CHT [address] [place], [address], [facility] 10/15/2019 09:40:10 10/15/19 20 PT Paraffin Bath completed DARIEN FORD, OTR/L, CHT [address] [place], [address], [facility] 10/15/2019 08:45:44 10/12/19 20 OT Therapeutic Exercise completed DARIEN FORD, OTR/L, CHT [address] [place], [address], [facility] 10/12/2019 10:44:31 10/12/19 20 OT Manual Therapy completed DARIEN FORD, OTR/L, CHT [address] [place], [address], [facility] 10/12/2019 09:11:11 10/12/19 20 PT Paraffin Bath completed DARIEN FORD, OTR/L, CHT [address] [place], [address], [facility] 10/12/2019 09:11:11 10/10/19 20 OT Therapeutic Exercise completed DARIEN FORD, OTR/L, CHT [address] [place], [address], [facility] 10/10/2019 09:54:00 10/10/19 20 OT Manual Therapy completed DARIEN FORD, OTR/L, CHT [address] [place], [address], [facility] 10/10/2019 09:07:00 10/10/19 20 PT Paraffin Bath completed DARIEN FORD, OTR/L, CHT [address] [place], [address], [facility] 10/10/2019 09:07:00 10/04/19 20 OT Therapeutic Exercise completed DARIEN FORD, OTR/L, CHT [address] [place], [address], [facility] 10/04/2019 10:20:28 10/04/19 20 OT Manual Therapy completed DARIEN FORD, OTR/L, CHT [address] [place], [address], [facility] 10/04/2019 11:20:05 10/04/19 20 PT Paraffin Bath completed DARIEN FORD, OTR/L, CHT [address] [place], [address], [facility] 10/04/2019 10:20:28 10/01/20 19 OT Therapeutic Exercise completed DARIEN FORD, OTR/L, CHT [address] [place], [address], [facility] 10/01/2019 10:18:48 10/01/20 19 OT Manual Therapy completed DARIEN FORD, OTR/L, CHT [address] [place], [address], [facility] 10/01/2019 10:18:52 10/01/20 19 PT Paraffin Bath completed DARIEN FORD, OTR/L, CHT [address] [place], [address], [facility] 10/01/2019 10:18:20 09/27/20 19 OT Therapeutic Exercise completed ALEX WILD JR, OTR/L, CHT [address] [place], [address], [facility] 2019 11:11:03 09/27/20 19 OT Manual Therapy completed ALEX WILD JR, OTR/L, CHT [address] [place], [address], [facility] 2019 10:01:09 09/24/20 19 OT Therapeutic Exercise completed DARIEN FORD, OTR/L, CHT [address] [place], [address], [facility] 09/24/2019 09:54:08 09/24/20 19 OT Manual Therapy completed DARIEN FORD, OTR/L, CHT [address] [place], [address], [facility] 09/24/2019 09:54:00 09/24/20 19 PT Hot/Cold Pack completed DARIEN FORD, OTR/L, CHT [address] [place], [address], [facility] 09/24/2019 09:54:21 09/21/20 19 OT Manual Therapy completed DARIEN FORD, OTR/L, CHT [address] [place], [address], [facility] 09/21/2019 08:27:20 09/19/20 19 OT Manual Therapy completed DARIEN FORD, OTR/L, CHT [address] [place], [address], [facility] 09/19/2019 15:23:47 09/17/20 19 Orthotic, HFO, Static Custom completed DARIEN FORD, OTR/L, CHT [address] [place], [address], [facility] 09/17/2019 13:30:53 09/17/20 19 OT Evaluation - Moderate complexity completed DARIEN FORD OTR/L, CHT [address] [place], [address], [facility] 09/17/2019 13:12:43 09/17/20 19 OT Manual Therapy completed DARIEN FORD OTR/L, CHT [address] [place], [address], [facility] 09/17/2019 13:30:57 09/14/20 19 Op Note completed PORSCHE MCKENZIE MD [address] [place], [address], [facility] 09/14/2019 10:10:44 06/13/20 19 OT Therapeutic Exercise completed DARIEN FORD OTR/L, CHT [address] [place], [address], [facility] 06/13/2019 08:30:38 06/13/20 19 OT Manual Therapy completed DARIEN FORD OTR/L, CHT [address] [place], [address], [facility] 06/13/2019 08:07:02 06/13/20 19 PT Paraffin Bath completed DARIEN FORD, OTR/L, CHT [address] [place], [address], [facility] 06/13/2019 08:07:02 05/31/20 19 Orthotic Management; Subsequent Encounter completed DARIEN FORD OTR/L, CHT [address] [place], [address], [facility] 05/31/2019 08:06:55 05/31/20 19 OT Therapeutic Exercise completed DARIEN FORD OTR/L, CHT [address] [place], [address], [facility] 05/31/2019 08:43:57 05/31/20 19 OT Manual Therapy completed DARIEN FORD OTR/L, CHT [address] [place], [address], [facility] 05/31/2019 08:43:55 05/31/20 19 PT Paraffin Bath completed DARIEN FORD OTR/L, CHT [address] [place], [address], [facility] 05/31/2019 08:06:13 05/16/20 19 OT Therapeutic Exercise completed DARIEN FORD OTR/L, CHT [address] [place], [address], [facility] 05/16/2019 09:37:48 05/16/20 19 OT Manual Therapy completed DARIEN FORD OTR/L, CHT [address] [place], [address], [facility] 05/16/2019 09:37:50 05/16/20 19 PT Paraffin Bath completed DARIEN FORD OTR/L, CHT [address] [place], [address], [facility] 05/16/2019 09:37:51 05/04/20 19 OT Evaluation - Low complexity completed DARIEN FORD OTR/L, CHT [address] [place], [address], [facility] 05/04/2019 17:00:00 04/30/20 19 Op Note completed PORSCHE MCKENZIE MD [address] [place], [address], [facility] 04/30/2019 09:49:50 03/21/20 19 OT Manual Therapy completed DARIEN FORD OTR/L, CHT [address] [place], [address], [facility] 03/21/2019 10:18:25 03/21/20 19 PT Paraffin Bath completed DARIEN FORD OTR/L, CHT [address] [place], [address], [facility] 03/21/2019 09:57:29 03/13/20 19 OT Therapeutic Exercise completed DARIEN FORD OTR/L, CHT [address] [place], [address], [facility] 03/13/2019 10:41:08 03/13/20 19 OT Manual Therapy completed DARIEN FORD, OTR/L, CHT [address] [place], [address], [facility] 03/13/2019 10:41:05 03/13/20 19 PT Paraffin Bath completed DARIEN FORD, OTR/L, CHT [address] [place], [address], [facility] 03/13/2019 09:17:22 03/07/20 19 OT Therapeutic Exercise completed DARIEN FORD, OTR/L, CHT [address] [place], [address], [facility] 03/07/2019 10:12:46 03/07/20 19 OT Manual Therapy completed DARIEN FORD, OTR/L, CHT [address] [place], [address], [facility] 03/07/2019 09:08:27 03/07/20 19 PT Paraffin Bath completed DARIEN FORD, OTR/L, CHT [address] [place], [address], [facility] 03/07/2019 09:08:27 02/29/20 19 OT Therapeutic Exercise completed DARIEN FORD, OTR/L, CHT [address] [place], [address], [facility] 02/28/2019 10:21:21 02/29/20 19 OT Manual Therapy completed DARIEN FORD, OTR/L, CHT [address] [place], [address], [facility] 02/28/2019 10:21:15 02/29/20 19 PT Paraffin Bath completed DARIEN FORD OTR/L, CHT [address] [place], [address], [facility] 02/28/2019 10:22:42 02/23/20 19 Injection Trigger Finger Ortho completed PORSCHE MCKENZIE MD [address] [place], [address], [facility] 02/23/2019 09:39:16 02/23/20 19 OT Therapeutic Exercise completed DARIEN FORD, OTR/L, CHT [address] [place], [address], [facility] 02/22/2019 12:08:33 02/23/20 19 OT Manual Therapy completed DARIEN FORD, OTR/L, CHT [address] [place], [address], [facility] 02/22/2019 12:08:25 02/23/20 19 PT Paraffin Bath completed DARIEN FORD, OTR/L, CHT [address] [place], [address], [facility] 02/22/2019 11:50:45 02/20/20 19 OT Therapeutic Exercise completed DAIREN FORD, OTR/L, CHT [address] [place], [address], [facility] 02/19/2019 10:04:26 02/20/20 19 OT Manual Therapy completed DARIEN FORD, OTR/L, CHT [address] [place], [address], [facility] 02/19/2019 10:04:26 02/20/20 19 PT Paraffin Bath completed DARIEN FORD, OTR/L, CHT [address] [place], [address], [facility] 02/19/2019 10:04:26 02/15/20 19 OT Therapeutic Exercise completed DARIEN FORD, OTR/L, CHT [address] [place], [address], [facility] 02/14/2019 10:05:14 02/15/20 19 OT Manual Therapy completed DARIEN FORD, OTR/L, CHT [address] [place], [address], [facility] 02/14/2019 10:05:14 02/15/20 19 PT Paraffin Bath completed DARIEN FORD, OTR/L, CHT [address] [place], [address], [facility] 02/14/2019 10:05:14 02/13/20 19 OT Therapeutic Exercise completed DARIEN FORD, OTR/L, CHT [address] [place], [address], [facility] 02/12/2019 11:35:33 02/13/20 19 OT Manual Therapy completed DARIEN FORD, OTR/L, CHT [address] [place], [address], [facility] 02/12/2019 10:56:43 02/13/20 19 PT Paraffin Bath completed DARIEN FORD, OTR/L, CHT [address] [place], [address], [facility] 02/12/2019 10:56:43 02/10/20 19 OT Therapeutic Exercise completed Meir Almaguer [facility] 02/09/2019 10:02:09 02/10/20 19 OT Manual Therapy completed Meir Almaguer [facility] 02/09/2019 10:02:09 02/10/20 19 PT Paraffin Bath completed Meir Almaguer [facility] 02/09/2019 10:02:09 02/06/20 19 OT Therapeutic Exercise completed DARIEN FORD, OTR/L, CHT [address] [place], [address], [facility] 02/05/2019 11:33:35 02/06/20 19 OT Manual Therapy completed DARIEN FORD, OTR/L, CHT [address] [place], [address], [facility] 02/05/2019 11:33:31 02/06/20 19 PT Paraffin Bath completed DARIEN FORD, OTR/L, CHT [address] [place], [address], [facility] 02/05/2019 11:33:40 02/03/20 19 OT Therapeutic Exercise completed DARIEN FORD, OTR/L, CHT [address] [place], [address], [facility] 02/02/2019 11:11:11 02/03/20 19 OT Manual Therapy completed DARIEN FORD, OTR/L, CHT [address] [place], [address], [facility] 02/02/2019 11:11:04 02/03/20 19 PT Paraffin Bath completed DARIEN FORD OTR/L, CHT [address] [place], [address], [facility] 02/02/2019 10:13:11 02/01/20 19 OT Therapeutic Exercise completed DARIEN FORD OTR/L, CHT [address] [place], [address], [facility] 01/31/2019 11:28:41 02/01/20 19 OT Manual Therapy completed DARIEN FORD OTR/L, CHT [address] [place], [address], [facility] 01/31/2019 10:57:57 02/01/20 19 PT Paraffin Bath completed DARIEN FORD OTR/L, CHT [address] [place], [address], [facility] 01/31/2019 10:23:49 12/19/19 19 Op Note completed PORSCHE MCKENZIE MD [address] [place], [address], [facility] 12/18/2018 15:55:39 cardiac catheterization completed Annel Ryder [facility] 12/15/2023 10:36:11 Imaging Results None recorded. Procedure Notes None recorded. Medical Equipment None Reported. Allergies No known drug allergies Medications Name Sig Start Date Stop Date Status Note LastModified by Organization Details LastModified Time atorvasta tin 40 mg tablet Take 1 tablet every day by oral route. active Not Available Not Available No t Available metformin 500 mg tablet Take 1 tablet every day by oral route. 07/06 completed Not Available Not Available Not Available Augmentin 875 mg-125 mg tablet Take 1 tablet every 12 hours by oral route. 05/09 completed Not Available Not Available Not Available sulfasala zine 500 mg tablet Take 1 tablet 4 times a day by oral route. 04/11 completed Not Available Not Available Not Available cetirizin e 10 mg tablet Take 1 tablet every day by oral route. active Not Available Not Available No t Available meloxicam 15 mg tablet Take 1 tablet every day by oral route. 05/31 completed Not Available Not Available Not Available Medrol (Esau) 4 mg tablets in a dose pack Take 1 dose pk by oral route. 12/12 completed Not Available Not Available Not Available Remicade 100 mg intraveno us solution Inject 300 mg by intraven ous route. 04/04 completed Remicade - 3 mg/kg - 300 mg - Q 8 wks - next infusion 04/18/23 @ 0830 - ICD 10 - L40.59 - drug by [facility]. Not Available Not Available Not Available prednison e 10 mg tablets in a dose pack TAKE DIRECTED . 05/12 completed Not Available Not Available Not Available meloxicam 7.5 mg tablet TAKE 1 TAB PO QD WITH FOOD REGARDLE SS OF PAIL LEVEL FOR 1 WEEK, THEN TAKE ONLY PRN FOR PAIN RELIEF THEREAFT ER 03/16 completed Not Available Not Available Not Available methotrex ate sodium 2.5 mg tablet TAKE 4 TABLETS BY MOUTH WEEKLY 2024 active Not Available Not Available Not Avai lable prednison e 1 mg tablet TAKE 2 TABLETS TWICE A DAY BY ORAL ROUTE FOR 30 DAYS. 08/10 completed Not Available Not Available Not Available Neurontin 100 mg capsule TAKE 1 CAPSULE PO QHS FOR 1 WEEK 05/24 completed Not Available Not Available Not Available losartan 25 mg tablet Take 1 tablet every day by oral route. active Not Available Not Available No t Available betametha sone dipropion ate 0.05 % topical cream APPLY SPARINGL Y TO AFFECTED AREA EVERY DAY 09/13 completed Not Available Not Available Not Available folic acid 1 mg tablet Take 1 tablet every day by oral route for 90 days. 2023 active Not Available Not Available Not Avai lable aspirin 81 mg tablet Take by oral route. active Not Available Not Available No t Available pravastat in 20 mg tablet Take 1 tablet every day by oral route. 12/14 completed Not Available Not Available Not Available ibuprofen 600 mg tablet Take 1 tablet twice a day by oral route for 30 days. 05/24 completed Not Available Not Available Not Available Percocet 5 mg-325 mg tablet TAKE 1-2 PO Q 4-6 H PRN SEVERE POST OPERATIV E PAIN. DO NOT EXCEED 10 IN 24 HOURS 12/22 completed Not Available Not Available Not Available Saxis 5 mg-325 mg tablet TAKE 1 TAB PO Q 4-6 HRS PRN FOR SEVERE POST SURGICAL PAIN 05/24 completed Not Available Not Available Not Available clobetaso l 0.05 % scalp solution APPLY TO THE AFFECTED SCALP AREA BY TOPICAL ROUTE 2 TIMES PER DAY IN THE MORNING AND EVENING 2022 active Not Available Not Available Not Avai lable piroxicam 20 mg capsule Take 1 capsule every day by oral route for 30 days. 11/05 completed pcp Not Available Not Available Not Available sulindac 200 mg tablet Take 1 tablet twice a day by oral route for 90 days. 03/13 completed [facility] pharmacy Not Available Not Available Not Available escitalop stephanie 10 mg tablet Take 1 tablet every day by oral route. 01/15 completed Not Available Not Available Not Available metformin ER 750 mg tablet,ex tended release 24 hr Take 1 tablet every day by oral route. 12/14 completed 850 mg twice a day Not Available Not Available Not Available magnesium active hasn't started as of 01/15/25 Not Available Not Available Not Available milk thistle 2000mg a day 05/12 completed Not Available Not Available Not Available Benadryl 04/11 completed Not Available Not Available Not Available Rocephin 04/11 completed Not Available Not Available Not Available coenzyme Q10 100 mg active Not Available Not Available Not Available Vitamin D3 active Not Available Not Available Not Available Super B Complex active Not Available Not Available Not Available metformin 750mg once daily active Not Available Not Available No t Available Cubicin 04/11 completed Not Available Not Available Not Available Enbrel SureClick 50 mg/mL (1 mL) subcutane ous pen injector INJECT 1 PEN UNDER THE SKIN EVERY 7 DAYS. 05/[address] [facility] CH[facility] TO [facility] INFUSION Not Available Not Available Not Available Olton 3-6-9 04/11 completed Not Available Not Available Not Available Stelara 11/26 completed Not Available Not Available Not Available Stelara 90 mg/mL subcutane ous syringe Inject 90 mg every 3 months by subcutan eous route. 02/10 completed Not Available Not Available Not Available Otezla 30 mg tablet TAKE 1 TABLET BY MOUTH 2 TIMES A DAY. 05/12 completed D/C AND START ENBREL Not Available Not Available Not Available Cosentyx 300 mg/2 Syringes (150 mg/mL) subcutane ous syringe Inject 2 mL every 4 weeks by subcutan eous route. active Not Available Not Available No t Available Xeljanz XR 11 mg tablet,ex tended release 04/16 completed pa approved until 11/18/24 Not Available Not Available Not Available Rinvoq 15 mg tablet,ex tended release 03/22 completed Not Available Not Available Not Available Vitals Date Recorded Body height Body mass index (BMI) Body weight Respiratory rate Heart rate Oxygen saturation Oxygen saturation in Arterial blood by Pulse oximetry Systolic And Diastolic Provider Name and Address Organization Details Last Updated DateTime 4 157.48 cm 35.3 kg/m2 59033.0 3 g 16 /min 92 /min 97 % 97 % 122/76 mm[Hg] Annel [facility] 4 10:37:04 Date Recorded Body height Respiratory rate Body mass index (BMI) Body weight Oxygen saturation Oxygen saturation in Arterial blood by Pulse oximetry Heart rate Systolic And Diastolic Provider Name and Address Organization Details Last Updated DateTime 5 157.48 cm 16 /min 37.5 kg/m2 54073.4 4 g 96 % 96 % 78 /min 122/74 mm[Hg] Taras Quintana [facility] 5 13:37:34 Date Recorded Body height Body mass index (BMI) Body weight Respiratory rate Heart rate Oxygen saturation Oxygen saturation in Arterial blood by Pulse oximetry Systolic And Diastolic Provider Name and Address Organization Details Last Updated DateTime 4 157.48 cm 36.6 kg/m2 56086.5 7 g 16 /min 85 /min 99 % 99 % 128/72 mm[Hg] Annel Ryder [facility] 4 09:18:51 Date Recorded Body height Body mass index (BMI) Body weight Respiratory rate Heart rate Oxygen saturation Oxygen saturation in Arterial blood by Pulse oximetry Systolic And Diastolic Provider Name and Address Organization Details Last Updated DateTime 4 157.48 cm 37.5 kg/m2 13220.4 4 g 16 /min 77 /min 95 % 95 % 128/74 mm[Hg] Taras Quintana [facility] 4 08:37:42 Date Recorded Body height Body mass index (BMI) Body weight Respiratory rate Heart rate Oxygen saturation Oxygen saturation in Arterial blood by Pulse oximetry Systolic And Diastolic Provider Name and Address Organization Details Last Updated DateTime 3 157.48 cm 33.5 kg/m2 42990.5 g 16 /min 71 /min 93 % 93 % 126/80 mm[Hg] Annel Ryder [facility] 3 08:40:44 Social History Question Answer Notes LastModified by Jimmy Fairly Details LastModified Time Tobacco Smoking Status [email or web address] 13:37:05 What Is Your Level Of Caffeine Consumption? Moderate Soda, Coffee Information not available 12/14/2018 How Much Tobacco Do You Chew? None [email or web address] Information not available 05/31/2019 Which Of Your Hands Is Dominant? Right Information not available 12/14/2018 Marital Status [email or web address] Informatio n not available 12/14/2018 What Was The Date Of Your Most Recent Tobacco Screening? 01/15/2025 [email or web address] Information not available 01/15/2025 How Much Tobacco Do You Smoke? 1.5 PPD [email or web address] Information not available 05/31/2019 Has Tobacco Cessation Counseling Been Provided? No [email or web address] Information not available 12/14/2018 How Many Years Have You Smoked Tobacco? 35 [email or web address] Information not available 05/31/2019 Have You Recently Traveled Abroad? No [email or web address] Information not available 11/05/2022 Sex: Female Functional Status Question Answer Note LastModified by Jimmy Fairly Details LastModified Time Do you use any illicit or recreational drugs? No [email or web address] Information not available 12/14/2018 Do you or have you ever used any other forms of tobacco or nicotine? No [email or web address] Information not available 11/09/2021 What is your level of alcohol consumption? None [email or web address] Information not available 12/14/2018 Do you or have you ever used smokeless tobacco? Never used smokeless tobacco [email or web address] Information not available 05/31/2019 Are you currently employed? 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 Former user of electronic cigarettes [email or web address] Information not available 05/31/2019 Mental Status None recorded. Family History Relationship Description Onset Age of this Age Resolved Age Notes LastModified by Organization Details LastModified Time Father Heart disease [email or web address] Not available 05/04 11:04:22 Medical History Condition Response Allergies/Hayfever N Other N Gout N Anxiety/Depression N Thyroid Disease N Kidney Stones N Heart Conditions N Emphysema N Hernia N Migraines N COPD N Glaucoma N Pneumonia N Skin Problems N Immune System Disorder N Anesthesia Complications N Heart Attack ([place]) N Mental Illness N Neurological Problems N Diabetes N Rheumatic Fever N Bleeding Disorder N Arthritis Y Seizures/Epilepsy N Blood Clot N Tuberculosis N Genetic Disorder N AIDS/HIV N Acid Reflux (GERD) N Cancer N Stroke N Asthma N Blood Thinners N Alcohol Overuse/Alcohol Abuse N Sleep Apnea N High Cholesterol Y Liver Disease N Included as Review of Systems Y Heart Disease N Hypertension N Osteoporosis N Kidney Disease N Gynecological HistoryNo gynecological history recorded. Obstetrics History GPAL:G 0 P 0 0 0 0 Past Encounters Encounter ID Performer Location Encounter Start Date Encounter Closed Date Diagnosis/Indication Diagnosis SNOMED-CT Code Diagnosis ICD10 Code Diagnosis IMO Codes Diagnosis Note [id number] PORSCHE MCKENZIE MD [facility] [address] [place] [address] [place] [address] 12/14/2018 13:15:47 12/14/2018 15:47:19 Flexor tenosynovitis of finger 593728175 M65.842 Left long finger flexor tenosynovi tis X-rays reveal significan t arthritic changes, but no evidence of underlying osteomyeli tis. Tendinitis of flexor tendon of right hand 5486692998 2193039 M77.9 Right FDS/FDP tendinitis at the wrist Trigger finger [id number] 1 97762 M65.331 Right long trigger finger [id number] PORSCHE MCKENZIE MD SURGERY SCHEDULE [address] [place] [address] 12/18/2018 08:04:36 12/18/2018 08:05:44 [id number] ROSS BAJWA PA-C [facility] [address] [place] [address] 12/22/2018 12:38:24 12/22/2018 13:27:46 Postoperative care 880917392 Z48.89 Doing well 4 days s/p Left long finger flexor tenosynove ctomy with Left long finger DIP joint debridemen t/synovect carlos She states she is feeling well and reports improvemen t in pain compared to pre-op. She reports compliance with therapy and infectious disease. She has a PICC line in place. She denies fever/chil ls/signs of systemic infection. To date, cultures negative in chart. 1 wk recheck for suture removal. Continue dressing changes and keeping wound clean/dry. Counsellin g provided at length. RTO as scheduled or sooner if needed, advised to call office with any questions/ concerns. [id number] ROSS BAJWA PA-C [facility] [address] [place] [address] 12/29/2018 14:14:04 12/29/2018 15:10:11 Postoperative care 444810749 Z48.89 Doing well s/p Left long finger flexor tenosynove ctomy with Left long finger DIP joint debridemen t/synovect carlos (12/18/18) She states she is feeling well and reports improvemen t in pain and function. She reports compliance with therapy and infectious disease. She has a PICC line in place. She denies fever/chil ls/signs of systemic infection. Counsellin g provided at length. [address] Mckenzie. RTO as scheduled or sooner if needed, advised to call office with any questions/ concerns. Flexor ten osynovitis of finger 765122197 M65.842 Left long finger flexor tenosynovi tis Pre op X-rays reveal significan t arthritic changes, but no evidence of underlying osteomyeli tis. Tendinitis of flexor tendon of right hand 2434539903 4814940 M77.9 Pre-op: Right FDS/FDP tendinitis at the wrist Trigger finger 145545139 1 43061 M65.331 Pre-op: Right long trigger finger [id number] PORSCHE MCKENZIE MD [facility] [address] [place] [address] 01/12/2019 12:38:58 01/12/2019 13:36:49 Postoperative care [id number] Z48.89 4 weeks s/p Left long finger flexor tenosynove ctomy with left long finger DIP joint debridemen t/synovect carlos (12/18/18) Trigger finger 802637496 1 33259 M65.331 M65.351 Right small trigger finger [id number] DARIEN FORD OTR/L, CHT PHYSICAL THERAPY / HAND THERAPY [facility] [address] [place] [address] 01/31/2019 09:53:31 02/01/2019 08:06:38 Flexor tenosynovitis of finger 957344886 M65.778 [id number] DARIEN FORD OTR/L, CHT PHYSICAL THERAPY / HAND THERAPY [facility] [address] [place] [address] 02/02/2019 10:03:00 02/02/2019 11:51:14 Trigger finger 1735333596 74327 M65.332 with Tenosynove ctomy [id number] DARIEN FORD OTR/L, CHT PHYSICAL THERAPY / HAND THERAPY [facility] [address] [place] [address] 02/05/2019 09:56:16 02/06/2019 08:10:51 Trigger finger [id number] 94696 M65.332 with Tenosynove ctomy [id number] RUTH BONDS/L, CHT PHYSICAL THERAPY / HAND THERAPY [facility] [address] [place] [address] 02/09/2019 09:52:29 02/09/2019 12:42:59 Trigger finger [id number] 96737 M65.332 with Tenosynove ctomy [id number] DARIEN FORD OTR/L, CHT PHYSICAL THERAPY / [facility] TH[facility]APY [facility] [address] [place] [address] 02/12/2019 09:49:39 02/12/2019 11:52:08 Trigger finger [id number] 20060 M65.332 with Tenosynove ctomy [id number] DARIEN FORD OTR/L, CHT PHYSICAL THERAPY / HAND THERAPY [facility] [address] [place] [address] 02/14/2019 09:43:43 02/14/2019 10:57:32 Trigger finger 8033162355 77611 M65.332 with Tenosynove ctomy [id number] DARIEN FORD OTR/L, CHT PHYSICAL THERAPY / HAND THERAPY [facility] [address] [place] [address] 02/19/2019 08:55:39 02/19/2019 10:39:08 Trigger finger [id number] 28466 M65.332 with Tenosynove ctomy [id number] DARIEN FORD OTR/L, CHT PHYSICAL THERAPY / HAND THERAPY [facility] [address] [place] [facility] 02/22/2019 11:05:43 02/22/2019 12:32:38 Trigger finger [id number] 04084 M65.332 with Tenosynove ctomy [id number] PORSCHE MCKENZIE MD [facility] [address] [place] [address] 02/22/2019 14:27:11 02/22/2019 16:20:37 Postoperative care [id number] Z48.89 10 weeks s/p Left long finger flexor tenosynove ctomy with left long finger DIP joint debridemen t/synovect carlos (12/18/18) Trigger finger [id number] 1 69380 M65.351 M65.311 - Right small trigger finger (CSI: 02/22/19) - Right trigger thumb (CSI: 02/22/19) [id number] RUTH BONDS/L, CHT PHYSICAL THERAPY / [facility] TH[facility]APY [facility] [address] [place] [address] 02/28/2019 09:08:11 02/28/2019 10:31:59 Trigger finger [id number] 89372 M65.332 with Tenosynove ctomy [id number] DARIEN FORD, OTR/L, CHT PHYSICAL THERAPY / HAND TH[facility]APY [facility] [address] [place] [address] 03/07/2019 09:05:57 03/07/2019 10:14:55 Trigger finger [id number] 72166 M65.332 with Tenosynove ctomy [id number] DARIEN FORD, OTR/L, CHT PHYSICAL THERAPY / HAND TH[facility]APY [facility] [address] [place] [address] 03/13/2019 09:14:41 03/13/2019 10:45:15 Trigger finger [id number] 18579 M65.332 with Tenosynove ctomy [id number] DARIEN FORD, OTR/L, T PHYSICAL THERAPY / HAND THERAPY [facility] [address] [place] [address] 03/21/2019 09:02:40 03/21/2019 10:44:38 Trigger finger [id number] 48016 M65.332 with Tenosynove ctomy [id number] PORSCHE MCKENZIE MD [facility] [address] [place] [address] 04/11/2019 07:56:45 04/11/2019 09:00:53 Postoperative care 949595145 Z48.89 4 months s/p Left long finger flexor tenosynove ctomy with left long finger DIP joint debridemen t/synovect carlos (12/18/18) Trigger finger [id number] 1 51538 M65.351 M65.311 - Right small trigger finger (CSI: 02/22/19) - Right trigger thumb (CSI: 02/22/19) - currently resolved Mass of hand 507534282 R 22.31 Right thumb volar IP joint mass X-rays negative for underlying fracture/d islocation . She does have a sesamoid bone associated with the IP joint. [id number] PORSCHE MCKENZIE MD ORTHOPEDI [address] [place] [address] 04/24/2019 12:45:27 04/24/2019 13:50:12 Postoperative care [id number] Z48.89 4 months s/p Left long finger flexor tenosynove ctomy with left long finger DIP joint debridemen t/synovect carlos (12/18/18) Trigger finger [id number] 1 01743 M65.351 M65.311 - Right small trigger finger (CSI: 02/22/19) - Right trigger thumb (CSI: 02/22/19) MRI of the right thumb (04/24/19) demonstrat ed severe tenosynovi tis and probable partial-th ickness tear of the FPL tendon at the level of palpable abnormalit y. No tendon transectio n identified . No underlying mass. X-rays negative for underlying fracture/d islocation . She does have a sesamoid bone associated with the IP joint. [id number] PORSCHE MCKENZIE MD SURGERY SCHEDULE [address] [place] [address] 04/30/2019 08:11:18 04/30/2019 08:14:04 [id number] DARIEN FORD, OTR/L, CHT PHYSICAL THERAPY / HAND TH[facility]APY [facility] [address] [place] [address] 05/04/2019 16:38:32 05/07/2019 10:22:07 Trigger finger of right hand 0446991305 [id number] M65.30 small finger and thumb [id number] ROSS BAJWA PA-C [facility] [address] [place] [address] 05/10/2019 10:01:00 05/10/2019 10:57:55 Postoperative care [id number] Z48.89 Now s/p Right trigger thumb release and tenosynove ctomy; Right small trigger finger release and tenosynove ctomy (DOS: 04/30/19) Previously s/p Left long finger flexor tenosynove ctomy with Left long finger DIP joint debridemen t/synovect carlos (DOS: 12/18/18) Trigger finger [id number] 98350 M65.351 M65.311 - Right small trigger finger (CSI: 02/22/19) - Right trigger thumb (CSI: 02/22/19) MRI of the right thumb (04/24/19) demonstrat ed severe tenosynovi tis and probable partial-th ickness tear of the FPL tendon at the level of palpable abnormalit y. No tendon transectio n identified . No underlying mass. X-rays negative for underlying fracture/d islocation . She does have a sesamoid bone associated with the IP joint. [id number] DARIEN FORD OTR/L, CHT PHYSICAL THERAPY / HAND THERAPY [facility] [address] [place] [address] 05/16/2019 08:52:54 05/16/2019 13:13:32 Trigger finger of right hand [id number] M65.30 small finger and thumb [id number] PORSCHE MCKENZIE MD ORTHOPEDI [address] [place] [address] 05/29/2019 14:25:03 05/29/2019 15:33:51 Postoperative care [id number] Z48.89 4 weeks s/p Right trigger thumb release and tenosynove ctomy; Right small trigger finger release and tenosynove ctomy (DOS: 04/30/19) Previously s/p Left long finger flexor tenosynove ctomy with Left long finger DIP joint debridemen t/synovect carlos (DOS: 12/18/18) [id number] DARIEN FORD OTR/L, CHT PHYSICAL THERAPY / [facility]Y [facility] [address] [place] [address] 05/31/2019 07:53:52 05/31/2019 14:50:44 Trigger finger of right hand [id number] M65.30 small finger and thumb [id number] CHIKI CELESTE MD RHEUMATOL [facility] [address] [place] [address] 05/31/2019 10:30:07 06/05/2019 09:00:46 Psoriasis with arthropathy [id number] L40.50 53-year-ol d female with chronic psoriasis and psoriatic arthritis. Further history of septic Tenosynovi tis flexor tendon left middle finger, December 2018. Tried and failed methotrexa te, hydroxychl oroquine, Humira and currently is on Stelara injection every 3 months. Meloxicam 15 mg once a day. Despite being on the biologic, she remains symptomati c with classic active dactylitis involving the left middle finger right little finger. Further has active plaque psoriasis involving her scalp. Discussion with the patient in the presence of her about potential treatment modalities . I would recommend to add Otezla at 30 mg twice a day after the initial starter pack to take in combinatio n with Stelara. discontinu e meloxicam and start piroxicam 20 mg Once a Day for symptomati c Pain Management . I have reviewed recent labs and we should repeat the labs on next visit. [id number] DARIEN FORD, OTR/L, CHT PHYSICAL THERAPY / [facility] [address] [place] [address] 06/13/2019 07:54:34 06/13/2019 13:21:52 Trigger finger of right hand [id number] M65.30 small finger and thumb [id number] PORSCHE MCKENZIE MD [facility] [address] [place] [address] 06/13/2019 07:55:01 06/13/2019 09:48:23 Postoperative care [id number] Z48.89 6 weeks s/p Right trigger thumb release and tenosynove ctomy; Right small trigger finger release and tenosynove ctomy (DOS: 04/30/19) Previously s/p Left long finger flexor tenosynove ctomy with Left long finger DIP joint debridemen t/synovect carlos (DOS: 12/18/18) [id number] PORSCHE MCKENZIE MD [facility] [address] [place] [address] 07/19/2019 09:56:21 07/19/2019 11:01:46 Postoperative care [id number] Z48.89 11 weeks s/p Right trigger thumb release and tenosynove ctomy; Right small trigger finger release and tenosynove ctomy (DOS: 04/30/19) Previously s/p Left long finger flexor tenosynove ctomy with Left long finger DIP joint debridemen t/synovect carlos (DOS: 12/18/18) [id number] PORSCHE MCKENZIE MD ORTHOPEDI CS [facility] [address] [place] [address] 08/16/2019 09:24:45 08/16/2019 11:14:10 Postoperative care [id number] Z48.89 3.5 months s/p Right trigger thumb release and tenosynove ctomy; Right small trigger finger release and tenosynove ctomy (DOS: 04/30/19) Previously s/p Left long finger flexor tenosynove ctomy with Left long finger DIP joint debridemen t/synovect carlos (DOS: 12/18/18) [id number] CHIKI CELESTE MD RHEUMATOL [facility] [address] [place] [address] 08/27/2019 12:06:17 08/27/2019 13:22:37 Psoriasis with arthropathy [id number] L40.50 53-year-ol d female with chronic psoriasis and psoriatic arthritis. Further history of septic Tenosynovi tis flexor tendon left middle finger, December 2018. 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 Tried and failed methotrexa te, hydroxychl oroquine, Humira and currently is on Stelara injection every 3 months. Meloxicam 15 mg once a day. Despite being on the biologic, she remains symptomati c with classic active dactylitis involving the right little and thumb and left middle finger. We will try to get approval for Otezla 30 mg bid. I gave her the starter kit. She will maintain the Stelara but would suggest to increase the dose to 90 mg sq q 3 months due to her active skin and joint disease. OK to use the NSAIDS as prn only, few times a week. She needs to watch her weight as well as HTN. Long-term drug therapy [id number] Z79.899 obtain the labs. [id number] PORSCHE MCKENZIE MD SURGERY SCHEDULE [address] [place] [address] 09/14/2019 06:36:24 09/14/2019 06:36:44 [id number] DARIEN FORD, OTR/L, CHT PHYSICAL THERAPY / [facility] [address] [place] [address] 09/17/2019 12:48:48 09/17/2019 16:31:08 Flexor tenosynovitis of finger M65.842 MF Tenolysis [id number] DARIEN FORD, OTR/L, CHT PHYSICAL THERAPY / [facility] [address] [place] [address] 09/19/2019 14:24:06 09/19/2019 15:28:21 Flexor tenosynovitis of finger M65.842 MF Tenolysis [id number] DARIEN FORD, OTR/L, CHT PHYSICAL THERAPY / [facility] [address] [place] [address] 09/21/2019 08:20:02 09/21/2019 09:01:43 Flexor tenosynovitis of finger M65.842 MF Tenolysis [id number] DARIEN FORD, OTR/L, CHT PHYSICAL THERAPY / [facility] [address] [place] [address] 09/24/2019 08:51:22 09/24/2019 10:59:34 Flexor tenosynovitis of finger M65.842 MF Tenolysis [id number] ROSS BAJWA PA-C [facility] [address] [place] [address] 2019 09:53:54 2019 10:26:08 Postoperative care [id number] Z48.89 Now s/p Left long finger flexor tenolysis; Left long finger PIP joint contractur e release (DOS: 09/14/19) Previously s/p Right trigger thumb release and tenosynove ctomy; Right small trigger finger release and tenosynove ctomy (DOS: 04/30/19) Previously s/p Left long finger flexor tenosynove ctomy with Left long finger DIP joint debridemen t/synovect carlos (DOS: 12/18/18) [id number] ALEX WILD JR, OTR/L, CHT PHYSICAL THERAPY / [facility] [address] [place] [address] 2019 09:54:37 2019 11:19:22 Flexor tenosynovitis of finger M65.842 MF Tenolysis [id number] RUTH BONDS/L, CHT PHYSICAL THERAPY / [facility] [address] [place] [address] 6 10/01/2019 08:49:53 10/01/2019 13:11:19 Flexor tenosynovitis of finger M65.842 MF Tenolysis [id number] RUTH BONDS/Zachary, CHT PHYSICAL THERAPY / [facility] [address] [place] [address] [place] [address] 6 10/04/2019 10:03:23 10/04/2019 13:17:20 Flexor tenosynovitis of finger M65.842 MF Tenolysis [id number] RUTH BONDS/Zachary, CHT PHYSICAL THERAPY / [facility] [address] [place] [address] [place] [address] 6 10/10/2019 08:46:00 10/10/2019 09:58:18 Flexor tenosynovitis of finger M65.842 MF Tenolysis [id number] RUTH BONDS/Zachary, CHT PHYSICAL THERAPY / [facility] [address] [place] [address] 6 10/12/2019 08:47:07 10/12/2019 10:45:29 Flexor tenosynovitis of finger M65.842 MF Tenolysis [id number] RUTH BONDS/Zachary, CHT PHYSICAL THERAPY / [facility] [address] [place] [address] 6 10/15/2019 08:44:34 10/15/2019 11:16:13 Flexor tenosynovitis of finger M65.842 MF Tenolysis [id number] RUTH BONDS/Zachary, CHT PHYSICAL THERAPY / [facility] [address] [place] [address] 6 10/18/2019 08:45:40 10/18/2019 13:42:28 Flexor tenosynovitis of finger M65.842 MF Tenolysis [id number] RUTH BONDS/L, CHT PHYSICAL THERAPY / [facility] [address] [place] [address] 10/22/2019 08:41:16 10/22/2019 15:30:54 Flexor tenosynovitis of finger M65.842 MF Tenolysis [id number] RUTH BONDS/Zachary, CHT PHYSICAL THERAPY / [facility] [address] [place] [address] 10/25/2019 08:37:25 10/25/2019 10:09:34 Flexor tenosynovitis of finger M65.842 MF Tenolysis [id number] RUTH BONDS/Zachary, CHT PHYSICAL THERAPY / [facility]Y [facility] [address] [place] [address] 10/29/2019 08:38:05 10/29/2019 10:18:40 Flexor tenosynovitis of finger M65.842 MF Tenolysis [id number] RUTH BONDS/Zachary, CHT PHYSICAL THERAPY / [facility] [address] [place] [address] 11/01/2019 09:13:49 11/01/2019 10:14:51 Flexor tenosynovitis of finger M65.842 MF Tenolysis [id number] PORSCHE MCKENZIE MD [facility] [address] [place] [address] 11/01/2019 09:17:47 11/01/2019 11:06:41 Postoperative care [id number] Z48.89 6 weeks s/p Left long finger flexor tenolysis; Left long finger PIP joint contractur e release (DOS: 09/14/19) Previously s/p Right trigger thumb release and tenosynove ctomy; Right small trigger finger release and tenosynove ctomy (DOS: 04/30/19) Previously s/p Left long finger flexor tenosynove ctomy with Left long finger DIP joint debridemen t/synovect carlos (DOS: 12/18/18) [id number] DARIEN K LOGAN, OTR/L, CHT PHYSICAL THERAPY / [facility] [address] [address] 11/05/2019 08:46:40 11/05/2019 11:26:20 Flexor tenosynovitis of finger M65.842 MF Tenolysis [id number] DARIEN FORD, OTR/L, CHT PHYSICAL THERAPY / [facility] [address] [address] 11/08/2019 08:48:04 11/08/2019 13:23:12 Flexor tenosynovitis of finger M65.842 MF Tenolysis [id number] DARIEN FORD OTR/L, CHT PHYSICAL THERAPY / [facility] [address] [place] [address] 11/12/2019 09:23:42 11/12/2019 14:26:55 Flexor tenosynovitis of finger M65.842 MF Tenolysis [id number] DARIEN FORD OTR/L, CHT PHYSICAL THERAPY / [facility] [address] [address] 11/19/2019 08:52:53 11/19/2019 11:02:07 Flexor tenosynovitis of finger M65.842 MF Tenolysis [id number] DARIEN FORD OTR/L, CHT PHYSICAL THERAPY / [facility] [address] [address] 11/26/2019 08:47:59 11/26/2019 13:18:04 Flexor tenosynovitis of finger M65.842 MF Tenolysis [id number] CHIKI CELESTE MD RHEUMATOL [facility] [address] [place] [address] 11/26/2019 10:03:21 11/26/2019 10:48:26 Psoriasis with arthropathy [id number] L40.50 53-year-ol d female with chronic psoriasis and psoriatic arthritis. Further history of septic Tenosynovi tis flexor tendon left middle finger, December 2018, s/p debridemen t and asymptomat ic. Tried and failed methotrexa te, hydroxychl oroquine, Humira and currently is on Stelara injections every 3 months. I agree with the recent increase in dose of Stelara to 90 mg every 3 months. Hopefully, she should start feeling better with respect to joint pain and stiffness after receiving at least 2 doses of Stelara at 90 mg q 3 months. She'll continue with Otezla at 30 mg twice a day. I do not see any benefits from additional disease modifying therapy. A brief course of steroids that can help her current flare Other medical issues to include: S/P left middle finger DIP debridemen t and release surgery 12/2018. S/P Left long finger PIP joint contractur e release , 09/14/19. She follows labs through dermatolog ist [id number] RUTH BONDS/L, CHT PHYSICAL THERAPY / [facility] [address] [place] [address] 12/03/2019 08:51:40 12/03/2019 09:53:50 Flexor tenosynovitis of finger M65.842 MF Tenolysis [id number] PORSCHE MCKENZIE MD [facility] [address] [place] [address] 12/13/2019 09:28:40 12/13/2019 10:27:37 Postoperative care [id number] Z48.89 3 months s/p Left long finger flexor tenolysis; Left long finger PIP joint contractur e release (DOS: 09/14/19) Previously s/p Right trigger thumb release and tenosynove ctomy; Right small trigger finger release and tenosynove ctomy (DOS: 04/30/19) Previously s/p Left long finger flexor tenosynove ctomy with Left long finger DIP joint debridemen t/synovect carlos (DOS: 12/18/18) [id number] RUTH BONDS/L, CHT PHYSICAL THERAPY / [facility] [address] [place] [address] 12/13/2019 09:29:06 12/13/2019 11:11:51 Flexor tenosynovitis of finger [id number] M65.842 MF Tenolysis [id number] CHIKI CELESTE MD RHEUMATOL O[facility] [address] [place] [address] 05/23/2020 13:31:12 05/23/2020 14:07:49 Psoriasis with arthropathy [id number] L40.50 53-year-ol d female with chronic psoriasis and psoriatic arthritis. Further history of septic Tenosynovi tis flexor tendon left middle finger, December 2018, s/p debridemen t and remains asymptomat ic. Tried and failed methotrexa te, hydroxychl oroquine, Humira and currently is on Stelara injections every 3 months. She'll continue with Otezla at 30 mg twice a day. I do not see any benefits from additional disease modifying therapy. discontinu e piroxicam Start sulindac 200 mg 1 tablet twice a day with food Maintain low carb diet and regular exercise. Other medical issues to include: S/P left middle finger DIP debridemen t and release surgery 12/2018. S/P Left long finger PIP joint contractur e release , 09/14/19. She follows labs through dermatolog ist Long-term drug therapy [id number] Z79.899 obtain the labs. [id number] PORSCHE MCKENZIE MD [facility]I [facility] [address] [place] [address] 10/24/2020 13:57:10 10/24/2020 15:36:33 Postoperative care [id number] Z48.89 Previously s/p Left long finger flexor tenolysis; Left long finger PIP joint contractur e release (DOS: 09/14/19) Previously s/p Right trigger thumb release and tenosynove ctomy; Right small trigger finger release and tenosynove ctomy (DOS: 04/30/19) Previously s/p Left long finger flexor tenosynove ctomy with Left long finger DIP joint debridemen t/synovect carlos (DOS: 12/18/18) Arthritis of hand 030219 005 M13.842 X-rays of the left thumb reveal moderate underlying IP joint arthritis. No evidence of bone osteomyeli tis. [id number] WENCESLAO TITUS MD [facility]I [facility] [address] [place] [address] 10/27/2020 09:01:26 10/27/2020 10:16:18 Pain of left shoulder joint [id number] M25.675 [id number] CHIKI CELESTE [facility] [address] [place] [address] 11/14/2020 08:38:36 11/14/2020 08:57:29 Psoriasis with arthropathy [id number] L40.50 55-year-ol d female with chronic psoriasis and psoriatic arthritis. Further history of septic Tenosynovi tis flexor tendon left middle finger, December 2018, s/p debridemen t and remains asymptomat ic. Tried and failed methotrexa te, hydroxychl oroquine, Humira and currently is on Stelara 90 mg injections every 3 months. She'll continue with Otezla at 30 mg twice a day. I do not see any benefits from additional disease modifying therapy. Maintain Sulindac 200 mg 1 tablet twice a day with food Maintain low carb diet and regular exercise. Other medical issues to include: S/P left middle finger DIP debridemen t and release surgery 12/2018. S/P Left long finger PIP joint contractur e release , 09/14/19. follow-up with me in 3 months Long-term drug therapy [id number] Z79.899 obtain the labs to follow-up on the current medication s. Follow-up with me in 3 months [id number] WENCESLAO TITUS MD [facility]I [facility] [address] [place] [address] 12/15/2020 10:39:15 12/15/2020 11:30:24 Pain of left shoulder joint [id number] M25.940 [id number] CHIKI CELESTE MD RHEUMATOL [address] [address] 02/10/2021 09:21:45 02/10/2021 11:20:00 Psoriasis with arthropathy [id number] L40.50 55-year-ol d female with chronic psoriasis and psoriatic arthritis. Further history of septic Tenosynovi tis flexor tendon left middle finger, December 2018, s/p debridemen t and remains asymptomat ic. Tried and failed methotrexa te, hydroxychl oroquine, Humira and Stelara 90 mg injections every 3 months. on Otezla at 30 mg twice a day. Unfortunat marguerite, she remains symptomati c. Evidence of active dactylitis bilateral thumbs. Tender right wrist with synovitis. Today the right thumb is given a steroid injection. No complicati ons observed. I have suggested her to consider a trial of Enbrel 50 mg once a week and discontinu e the Otezla. Do not take any additional biologic or injection therapy in combinatio n with the enbrel. Discontinu e sulindac. See me in 3 months. Baseline x-rays and lab studies obtained in anticipati on of anti-TNF therapy. Other medical issues to include: S/P left middle finger DIP debridemen t and release surgery 12/2018. S/P Left long finger PIP joint contractur e release , 09/14/19. follow-up with me in 3 months Long-term drug therapy [id number] Z79.899 obtain the labs to follow-up on the current medication s. Follow-up with me in 3 months Malaise and fatigue [id number] R53.81 R53.83 chronic and multifacto rial. Suggest hepatitis panel. Weight loss encouraged . Good diabetes control and encouraged . [id number] CHIKI CELESTE MD RHEUMATOL OGY [address] [place] [address] 03/13/2021 09:53:12 03/13/2021 16:08:59 Psoriasis with arthropathy [id number] L40.50 55-year-ol d female with chronic psoriasis and psoriatic arthritis. clinically asymptomat ic. she is currently on otezla 30 mg twice a day but without any significan t benefit in her joint pains or joint swelling. She has noticed improvemen t of the skin only. Tried and failed methotrexa te, hydroxychl oroquine, Humira and Stelara 90 mg injections every 3 months. We gave her samples of Enbrel 50 mg, the first dose was given in the office. The prior authorizat ion was initiated a few weeks ago. Hopefully once the Enbrel is approved, she will initiate it at 50 mg every weekly. She will discontinu e the otezla. Other medical issues to include: S/P left middle finger DIP debridemen t and release surgery 12/2018. S/P Left long finger PIP joint contractur e release , 09/14/19. follow-up with me in 3 months Long-term drug therapy [id number] Z79.899 obtain the labs to follow-up on the Anti-TNF therapy every 3 months. TB test every 12 months. [id number] CHIKI CELESTE MD RHEUMATOL [place] [address] [place] [address] 04/15/2021 08:51:33 04/15/2021 11:54:57 Psoriasis with arthropathy [id number] L40.50 55-year-ol d female with chronic psoriasis and psoriatic arthritis. clinically improved. We have stopped the Otezla, due to lack of benefit. She is now on the Enbrel 50 mg every weekly. Has made a huge difference . So far she is getting drug samples. Tried and failed methotrexa te, hydroxychl oroquine, Humira and Stelara 90 mg injections every 3 months. Follow clinically . Hopefully the insurance will approve the Enbrel co-pay assistance program. Other medical issues to include: S/P left middle finger DIP debridemen t and release surgery 12/2018. S/P Left long finger PIP joint contractur e release , 09/14/19. follow-up with me as planned Long-term drug therapy [id number] Z79.899 lab studies reviewed, January 2021. Repeat in May. [id number] CHIKI CELESTE MD RHEUMATOL [facility] [address] [place] [address] 05/12/2021 10:14:40 05/12/2021 11:21:51 Psoriasis with arthropathy 54578463 L40.50 55-year-ol d female with chronic psoriasis and psoriatic arthritis. clinically improved on the Enbrel 50 mg q weekly.Off the Otezla, due to lack of benefit. Tried and failed methotrexa te, hydroxychl oroquine, Humira and Stelara 90 mg injections every 3 months. Samples of Enbrel 50 mg q weekly, given. Hopefully the insurance will approve the Enbrel co-pay assistance program. Other medical issues to include: S/P left middle finger DIP debridemen t and release surgery 12/2018. S/P Left long finger PIP joint contractur e release , 09/14/19. follow-up with me as planned Long-term drug therapy [id number] Z79.899 lab studies reviewed, January 2021. repeat TB test January 2022.Negat demi hepatitis panel January 2021. Normal CBC. Repeat labs on next visit. [id number] CHIKI CELESTE MD RHEUMATOL [address] [address] 08/10/2021 09:16:12 08/10/2021 10:09:31 Psoriasis with arthropathy 37420695 L40.50 55-year-ol d female with chronic psoriasis and psoriatic arthritis. She has done very well. Stable musculoske letal examinatio n with intact range of motion. No synovitis or dactylitis noted. Stable cardiopulm onary exam. Continue Enbrel 50 mg once a week. She is off the Otezla primarily due to the lack of benefit. Tried and failed methotrexa te, hydroxychl oroquine, Humira and Stelara 90 mg injections every 3 months. Other medical issues to include: S/P left middle finger DIP debridemen t and release surgery 12/2018. S/P Left long finger PIP joint contractur e release , 09/14/19. follow-up with me as planned in 6 months Long-term drug therapy [id number] Z79.899 lab studies reviewed, January 2021. repeat TB test January 2022.Negat demi hepatitis panel January 2021. Normal CBC. Repeat labs today. [id number] CHIKI CELESTE MD RHEUMATOL [place] [address] [place] [address] 11/09/2021 09:55:01 11/09/2021 16:48:33 Psoriasis with arthropathy [id number] L40.50 56-year-ol d female with chronic psoriasis and psoriatic arthritis. Chronic disease. She has done quite well. Stable musculoske letal exam. No synovitis or effusion. Stable cardiopulm onary exam. Continue Enbrel 50 mg once a week. She is off the Otezla primarily due to the lack of benefit. Tried and failed methotrexa te, hydroxychl oroquine, Humira and Stelara 90 mg injections every 3 months. Other medical issues to include: S/P left middle finger DIP debridemen t and release surgery 12/2018. S/P Left long finger PIP joint contractur e release , 09/14/19. follow-up with me as planned in January 2022 Long-term drug therapy [id number] Z79.899 lab studies reviewed, January 2021. repeat TB test January 2022.Negat demi hepatitis panel January 2021. Normal CBC. Lab studies August 2021 stable. [id number] [place] [address] 02/03/2022 08:59:49 02/03/2022 10:12:49 Psoriasis with arthropathy [id number] L40.50 56-year-ol d female with chronic psoriasis and psoriatic arthritis. She has come a long way. Addition of Enbrel has made a huge difference . Stable musculoske letal exam without any synovitis or effusion. Stable cardiopulm onary exam. Maintain Enbrel 50 mg q. weekly. We have stopped the Otezla. Tried and failed methotrexa te, hydroxychl oroquine, Humira and Stelara 90 mg injections every 3 months. Other medical issues to include: S/P left middle finger DIP debridemen t and release surgery 12/2018. S/P Left long finger PIP joint contractur e release , 09/14/19. follow-up with me 6 months Long-term current use of immunosuppressive drug [id number] Z79.899 Follow-up labs. [id number] CHIKI CELESTE MD RHEUMATOL [facility] [address] [place] [address] 1 07/21/2022 12:34:48 07/22/2022 13:06:45 Psoriatic arthritis [id number] L40.50 [id number] CHIKI CELESTE MD RHEUMATOL O[facility] [address] [place] [address] 1 08/04/2022 08:54:27 08/04/2022 11:43:17 Psoriatic arthritis [id number] L40.50 [id number] CHIKI CELESTE MD RHEUMATOL O[facility] [address] [place] [address] 1 08/06/2022 08:48:37 08/09/2022 14:29:10 Psoriasis with arthropathy [id number] L40.50 56-year-ol d female with chronic psoriasis and psoriatic arthritis. She has come a long way. Addition of Remicade in place of Enbrel has made a huge difference . She is off the Enbrel as well as of the Otezla. As mentioned before has also failed the methotrexa te, hydroxychl oroquine, Humira and Stelara. Stable musculoske letal exam without any synovitis or effusion. Stable cardiopulm onary exam. CDAI:TENDE R JOINTS. 0SWOLLEN JOINTS. 0PATIENT GOBAL DISEASE ACTIVITY 5PHYSICIAN GLOBAL DISEASE ACTIVITY 1 CDI equal 6 low disease activity Other medical issues to include: S/P left middle finger DIP debridemen t and release surgery 12/2018. S/P Left long finger PIP joint contractur e release , 09/14/19. follow-up with me 6 months Long-term current use of immunosuppressive drug [id number] Z79.899 Labs July 05 2022.CMP.M odest elevation in liver enzymes.TB test 02/04/2020 2 repeat in 02/03/2023Ob tain routine Follow-up labs. [id number] CHIKI CELESTE MD RHE[facility]ATOL [facility] [address] [place] [address] 08/30/2022 12:12:46 08/30/2022 14:56:37 Psoriatic arthritis [id number] L40.50 [id number] [place] [address] [place] [address] 11/01/2022 08:33:32 11/01/2022 11:34:22 Psoriatic arthritis [id number] L40.50 [id number] [place] [address] [place] [address] 11/05/2022 11:24:59 11/06/2022 04:04:27 Psoriasis with arthropathy [id number] L40.50 57-year-ol d female with chronic psoriasis and psoriatic arthritis. She is doing a lot better. Now on Remicade infusion therapy. Completed loading dose and will be starting the maintenanc e infusion every 8 weeks. No side effects reported. In the past was on Otezla and Enbrel which was stopped. Further she has failed methotrexa te, hydroxychl oroquine, Humira and Stelara. Currently does not have any active skin lesion.Tot al BSA, less than 3%. Joint improvemen t, almost 100%.Tende r joint count, 0Swollen joint count, 0Patient global disease, 2Physician global disease index, 0 Total score, clinical disease activity index: 2 in remission. Maintain the current treatment plan with Remicade infusion as a maintenanc e therapy every 8 weeks, 5 Mg per KG body weight. Premedicat e with Tylenol 1 g and Benadryl 50 mg. Other medical issues to include: S/P left middle finger DIP debridemen t and release surgery 12/2018. S/P Left long finger PIP joint contractur e release , 09/14/19. follow-up with me 3 months Long-term current use of immunosuppressive drug [id number] Z79.899 Labs July 05 2022.CMP.M odest elevation in liver enzymes. Obtain routine Follow-up labs. Tuberculos is screening [id number] Z11.7 The tubercular screening is up-to-date . Last TB test was in January 2022. Repeat in January 2023. [id number] CHIKI CELESTE MD RHEUMATOL [facility] [address] [place] [address] 12/27/2022 08:32:45 12/27/2022 13:49:47 Psoriatic arthritis [id number] L40.59 [id number] PORSCHE MCKENZIE MD [facility]THOPEDI [facility] [address] [place] [address] 01/18/2023 09:00:46 01/18/2023 12:09:08 Arthritis of hand 702328423 M13.842 X-rays of the left thumb reveal severe IP joint arthritis Postoperative care [id number] [id number] Z48.89 Previously s/p Left long finger flexor tenolysis; Left long finger PIP joint contractur e release (DOS: 09/14/19) Previously s/p Right trigger thumb release and tenosynove ctomy; Right small trigger finger release and tenosynove ctomy (DOS: 04/30/19) Previously s/p Left long finger flexor tenosynove ctomy with Left long finger DIP joint debridemen t/synovect carlos (DOS: 12/18/18) [id number] PORSCHE MCKENZIE MD SURGERY SCHEDULE [address] [place] [address] 01/24/2023 10:21:26 01/24/2023 10:22:15 [id number] ROSS BAJWA PA-C [facility] [address] [address] 02/08/2023 08:25:17 02/08/2023 10:23:47 Postoperative care [id number] Z48.89 s/p Left thumb interphala ngeal joint arthrodesi s with autograft/ allograft augmentati on (DOS: 01/24/25) Previously s/p Left long finger flexor tenolysis; Left long finger PIP joint contractur e release (DOS: 09/14/19) Previously s/p Right trigger thumb release and tenosynove ctomy; Right small trigger finger release and tenosynove ctomy (DOS: 04/30/19) Previously s/p Left long finger flexor tenosynove ctomy with Left long finger DIP joint debridemen t/synovect carlos (DOS: 12/18/18) [id number] DARIEN FORD, OTR/L, CHT PHYSICAL THERAPY / HAND THERAPY [facility] [address] [address] 02/08/2023 08:26:50 02/09/2023 04:31:57 Arthritis of hand [id number] M13.842 IP Thumb arthrodesi s [id number] CHIKI CELESTE MD [facility] [address] [place] [address] 02/08/2023 12:47:42 02/09/2023 04:40:56 Psoriasis with arthropathy [id number] L40.50 57-year-ol d female with chronic psoriasis and psoriatic arthritis. She is doing a lot better. Now on Remicade infusion therapy. Completed loading dose, 3 Mg per KG body weight the maintenanc e dose was associated with itching and hives on her left eyelid. After which the rate of infusion was reduced and was given IV steroid. She completed the maintenanc e infusion without any sequela. The cost of Remicade is a concern. In the past was on Otezla and Enbrel which was stopped. Further she has failed methotrexa te, hydroxychl oroquine, Humira and Stelara. Currently does not have any active skin lesion.Tot al BSA, less than 3%. Joint improvemen t, almost 100%.Tende r joint count, 0Swollen joint count, 0Patient global disease, 2Physician global disease index, 0 Total score, clinical disease activity index: 2 in remission. He is post left thumb arthrodesi s. Maintain the current treatment plan with Remicade infusion as a maintenanc e therapy every 8 weeks, reduce the amount of Remicade to 3 Mg per KG body weight q. 8 weeks instead of 5 Mg per KG body weight. Premedicat e with Tylenol 1 g and Benadryl 50 mg.Premedi [place] with IV Solu-Medro l 60 mg.Other medical issues to include: S/P left middle finger DIP debridemen t and release surgery 12/2018. S/P Left long finger PIP joint contractur e release , 09/14/19. follow-up with wi 3 months Long-term current use of immunosuppressive drug [id number] Z79.899 Lab studies December 27, 2022 reviewed stable.AST 37 ALT normal. Tuberculos is screening 949146398 Z11.7 The tubercular screening is up-to-date . Last TB test was in December 2022 negative. Repeat in December 2023 [id number] CHIKI CELESTE MD [facility]OL [facility] [address] [place] [address] 02/21/2023 08:57:06 02/21/2023 12:46:30 Psoriatic arthritis [id number] L40.59 [id number] PORSCHE MCKENZIE MD [facility] [address] [place] [address] 03/08/2023 08:49:09 03/08/2023 10:32:58 Postoperative care [id number] Z48.89 6 weeks s/p Left thumb interphala ngeal joint arthrodesi s with autograft/ allograft augmentati on (DOS: 01/24/25) Previously s/p Left long finger flexor tenolysis; Left long finger PIP joint contractur e release (DOS: 09/14/19) Previously s/p Right trigger thumb release and tenosynove ctomy; Right small trigger finger release and tenosynove ctomy (DOS: 04/30/19) Previously s/p Left long finger flexor tenosynove ctomy with Left long finger DIP joint debridemen t/synovect carlos (DOS: 12/18/18) Arthritis of hand 082294 005 M13.842 M13.841 Swelling o f finger joint [id number] M79.89 [id number] PORSCHE MCKENZIE MD SURGERY SCHEDULE [address] [place] [address] 03/09/2023 11:26:14 03/09/2023 11:27:24 [id number] ROSS BAJWA PA-C [facility] [address] [place] [address] 03/15/2023 08:33:02 03/15/2023 08:47:26 Postoperative care [id number] Z48.89 s/p Right index finger DIP joint arthrotomy with irrigation and debridemen t including debridemen t of adjacent osteomyeli tic bone involving the middle phalangeal head and distal phalanx base 6 weeks s/p Left thumb interphala ngeal joint arthrodesi s with autograft/ allograft augmentati on (DOS: 01/24/25) Previously s/p Left long finger flexor tenolysis; Left long finger PIP joint contractur e release (DOS: 09/14/19) Previously s/p Right trigger thumb release and tenosynove ctomy; Right small trigger finger release and tenosynove ctomy (DOS: 04/30/19) Previously s/p Left long finger flexor tenosynove ctomy with Left long finger DIP joint debridemen t/synovect carlos (DOS: 12/18/18) [id number] CHIKI CELESTE MD RHE[facility]ATOL [facility] [address] [place] [address] 03/16/2023 08:33:11 03/17/2023 04:08:13 Psoriasis with arthropathy 38391139 L40.50 57-year-ol d female with chronic psoriasis and psoriatic arthritis. Unfortunat marguerite watson Currently on Remicade infusion therapy the last infusion was in January 2023. 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 Post irrigation and debridemen t March 09, 2023 and is on antibiotic s. Further has noticed more pain and stiffness in the joints along with skin breakouts specially on the scalp with plaque psoriasis. Looks like she has failed the Remicade infusion and has not developed infection. I will discontinu e the Remicade infusion therapy. In the past, has also failed methotrexa te, hydroxychl oroquine, Otezla, Enbrel, Humira and Stelara. The next option is obviously CORDELL inhibitor therapy, Rinvoq extended release 15 mg once a day. We will contact insurance for approval. Other surgical history to include: S/P left middle finger DIP debridemen t and release surgery 12/2018. S/P Left long finger PIP joint contractur e release , 09/14/19. follow-up with me 3 months Long-term current use of immunosuppressive drug [id number] Z79.899 Lab studies December 27, 2022 reviewed stable.AST 37 ALT normal. Tuberculos is screening 563298325 Z11.7 The tubercular screening is up-to-date . Last TB test was in December 2022 negative. Repeat in December 2023 Synovitis of joint of left knee [id number] M65.862 Symptomati c left knee with synovitis and effusion secondary to psoriatic arthritis. On account of osteomyeli tis we decided not to give her any steroids. Discontinu e meloxicam trial of ibuprofen twice a day Chronic la rge plaque psoriasis 408209207 L40.0 Worsening plaque psoriasis especially the scalp. Trial of betamethas one topical cream. [id number] ROSS BAJWA PA-C [facility] [address] [place] [address] 03/29/2023 08:32:54 03/29/2023 08:51:26 Postoperative care [id number] Z48.89 s/p Right index finger DIP joint arthrotomy with irrigation and debridemen t including debridemen t of adjacent osteomyeli tic bone involving the middle phalangeal head and distal phalanx base 8 weeks s/p Left thumb interphala ngeal joint arthrodesi s with autograft/ allograft augmentati on (DOS: 01/24/25) Previously s/p Left long finger flexor tenolysis; Left long finger PIP joint contractur e release (DOS: 09/14/19) Previously s/p Right trigger thumb release and tenosynove ctomy; Right small trigger finger release and tenosynove ctomy (DOS: 04/30/19) Previously s/p Left long finger flexor tenosynove ctomy with Left long finger DIP joint debridemen t/synovect carlos (DOS: 12/18/18) [id number] PORSCHE MCKENZIE MD [facility] [address] [place] [address] 04/14/2023 08:36:25 04/14/2023 09:20:46 Postoperative care [id number] Z48.89 5 weeks s/p Right index finger DIP joint arthrotomy with irrigation and debridemen t including debridemen t of adjacent osteomyeli tic bone involving the middle phalangeal head and distal phalanx base (03/09/2023) 11 weeks s/p Left thumb interphala ngeal joint arthrodesi s with autograft/ allograft augmentati on (DOS: 01/24/23) Previously s/p Left long finger flexor tenolysis; Left long finger PIP joint contractur e release (DOS: 09/14/19) Previously s/p Right trigger thumb release and tenosynove ctomy; Right small trigger finger release and tenosynove ctomy (DOS: 04/30/19) Previously s/p Left long finger flexor tenosynove ctomy with Left long finger DIP joint debridemen t/synovect carlos (DOS: 12/18/18) [id number] CHIKI CELESTE MD RHE[facility]ATOL [facility] [address] [place] [address] 05/09/2023 07:40:29 05/10/2023 04:34:03 Psoriasis with arthropathy [id number] L40.50 57-year-ol d female with chronic psoriasis and psoriatic arthritis. She is now on Xeljanz XR. She is now off the remicade infusion therapy the last infusion was in January 2023.Stopp ed on account of her rash. Status post right index finger DIP debridemen t, work-up was negative for osteomyeli tis. Released from orthopedic surgery as well as infectious disease. Stable examinatio n today except for some mild erythema over the right index finger DIP joint. Otherwise no active synovitis. Stable cardiopulm onary exam. Continue Xeljanz XR 11 mg daily. In the past, has also failed methotrexa te, hydroxychl oroquine, Otezla, Enbrel, Humira and Stelara. Refills givenOther surgical history to include: S/P left middle finger DIP debridemen t and release surgery 12/2018. S/P Left long finger PIP joint contractur e release , 09/14/19. follow-up with me 3 months. Long-term current use of immunosuppressive drug [id number] Z79.899 Lab studies December 27, 2022 reviewed stable.AST 37 ALT normal. Repeat labs today Tuberculos is screening 585238776 Z11.7 The tubercular screening is up-to-date . Last TB test was in December 2022 negative. Repeat in December 2023 Synovitis of joint of left knee [id number] M65.862 Chronic and fairly stable.No indication to repeat the steroid injection. Follow clinically . Chronic la rge plaque psoriasis 022228416 L40.0 Plaque psoriasis, fairly stable at this time. On Xeljanz XR.Maintai n betamethas one topical cream. [id number] PORSCHE MCKENZIE MD [facility]I [facility] [address] [place] [address] 05/24/2023 08:37:02 05/24/2023 09:55:11 Postoperative care [id number] Z48.89 9 weeks s/p Right index finger DIP joint arthrotomy with irrigation and debridemen t including debridemen t of adjacent osteomyeli tic bone involving the middle phalangeal head and distal phalanx base (03/09/2023) 4 months s/p Left thumb interphala ngeal joint arthrodesi s with autograft/ allograft augmentati on (DOS: 01/24/23) Previously s/p Left long finger flexor tenolysis; Left long finger PIP joint contractur e release (DOS: 09/14/19) Previously s/p Right trigger thumb release and tenosynove ctomy; Right small trigger finger release and tenosynove ctomy (DOS: 04/30/19) Previously s/p Left long finger flexor tenosynove ctomy with Left long finger DIP joint debridemen t/synovect carlos (DOS: 12/18/18) [id number] CHIKI CELESTE MD RHE[facility]ATOL [facility] [address] [place] [address] 06/29/2023 08:13:50 07/01/2023 05:10:01 Psoriasis with arthropathy 27391803 L40.50 57-year-ol d female with chronic psoriasis and psoriatic arthritis. She is now on Xeljanz XR. She is off the remicade infusion therapy the last infusion was in January 2023.Stopp ed on account of her rash. Status post right index finger DIP debridemen t, work-up was negative for osteomyeli tis. Although was treated with antibiotic s, released from orthopedic surgery as well as infectious disease. Stable examinatio n todayNo active synovitis or effusion. Stable cardiopulm onary exam. Continue Xeljanz XR 11 mg daily. In the past, has also failed methotrexa te, hydroxychl oroquine, Otezla, Enbrel, Humira and Stelara. Refills givenOther surgical history to include: S/P left middle finger DIP debridemen t and release surgery 12/2018. S/P Left long finger PIP joint contractur e release , 09/14/19. follow-up with me 3 months. Long-term current use of immunosuppressive drug [id number] Z79.899 Lab studies December 27, 2022 reviewed stable.AST 37 ALT normal.Rep eat labs May 09, reviewed and stable Tuberculos is screening 151323676 Z11.7 The tubercular screening is up-to-date . Last TB test was in December 2022 negative. Repeat in December 2023 Chronic la rge plaque psoriasis 737446555 L40.0 Plaque psoriasis, fairly stable at this time. On Xeljanz XR.Maintai n betamethas one topical cream. [id number] CHIKI CELESTE MD R[facility]ATOL [facility] [address] [place] [address] 09/13/2023 08:31:51 09/14/2023 04:19:47 Psoriasis with arthropathy 90505902 L40.50 57-year-ol d female with chronic psoriasis and psoriatic arthritis. She is now on Xeljanz XR. Very well. Tolerating the drug well. No side effects. Excellent exam without any synovitis or effusion. No dactylitis or enthesitis . She is off the Remicade since January 2023. History of a rash with Remicade. Further history significan t for right index finger DIP debridemen t, work-up was negative for osteomyeli tis. Although was treated with antibiotic s, released from orthopedic surgery as well as infectious disease. Continue Xeljanz XR 11 mg daily. In the past, has also failed methotrexa te, hydroxychl oroquine, Otezla, Enbrel, Humira and Stelara. Other surgical history to include: S/P left middle finger DIP debridemen t and release surgery 12/2018. S/P Left long finger PIP joint contractur e release , 09/14/19. follow-up with me January 2024. Long-term current use of immunosuppressive drug 471921331 Z79.899 Lab studies December 27, 2022 reviewed stable.AST 37 ALT normal.Lab s May 09, reviewed and stable Repeat today. Tuberculos is screening 563614239 Z11.7 The tubercular screening is up-to-date . Last TB test was in December 2022 negative. Repeat in December 2023 Chronic la rge plaque psoriasis 227978334 L40.0 Plaque psoriasis, fairly stable at this time. On Xeljanz XR. Psoriasis of scalp 85926 8008 L40.9 Chronic but fairly stable controlled on the current clobetasol solution. Prescripti on sent for clobetasol scalp solution BID. [id number] CHIKI CELESTE MD [facility] [address] [place] [address] 12/15/2023 10:24:24 12/16/2023 05:10:18 Psoriasis with arthropathy 32384999 L40.50 58-year-ol d female with chronic psoriasis and psoriatic arthritis. She is now on Xeljanz XR. Unfortunat marguerite, cost is a concern. Joints are doing well but the skin is symptomati c. Her dermatolog ist is looking at other alternativ es including possible Cosentyx. She is off the Remicade since January 2023. History of a rash with Remicade. Further history significan t for right index finger DIP debridemen t, work-up was negative for osteomyeli tis. Although was treated with antibiotic s, released from orthopedic surgery as well as infectious disease. In the past, has also failed methotrexa te, hydroxychl oroquine, Otezla, Enbrel, Humira and Stelara. Other surgical history to include: S/P left middle finger DIP debridemen t and release surgery 12/2018. S/P Left long finger PIP joint contractur e release , 09/14/19. follow-up with me 3 months Long-term current use of immunosuppressive drug 307632625 Z79.899 September studies are normal. Tuberculos is screening 933791028 Z11.7 The tubercular screening is up-to-date . Last TB test was in December 2022 negative. Repeat today. Chronic la rge plaque psoriasis 864800522 L40.0 Plaque psoriasis, unfortunat marguerite symptomati c. Not able to continue Xeljanz primarily due to the cost. Followed by dermatolog y currently looking at possible Cosentyx treatment. Psoriasis of scalp 10239 8008 L40.9 On topical agents. Once On the Cosentyx, it would help the arthritis as well as the psoriasis. She will continue with the topical agents clobetasol [id number] CHIKI CELESTE MD R[facility] [address] [place] [address] 04/16/2024 08:58:36 04/17/2024 04:07:09 Psoriasis with arthropathy 77813533 L40.50 58-year-ol d female with chronic psoriasis and psoriatic arthritis. She has started the Cosentyx in combinatio n with the methotrexa te. She is not on a maintenanc e treatment. Excellent response. Complete resolution of joint pain, joint swelling and skin lesions. Currently on 300mg cosentyx q 4 weeks. Start date September 2023. Discussed with the patient in detail. Continue with the current combinatio n of Cosentyx along with the methotrexa te. As mentioned before has failed Xeljanz XR. Has failed Remicade infusion and developed a rash on the Remicade. Has failed the monotherap y with methotrexa te. Further has failed Otezla, and anti-TNF therapy including Enbrel, Humira as well as [place] therapy Stelara. Other surgical history to include: S/P left middle finger DIP debridemen t and release surgery 12/2018. S/P Left long finger PIP joint contractur e release , 09/14/19. follow-up with me 3 months Long-term current use of immunosuppressive drug [id number] Z79.899 04/03/24 labscbc normalnorm al cmpnormal crp Repeat on next visit Tuberculos is screening 454917637 Z11.7 The tubercular screening is up-to-date . Last TB test was in December 2019 4 repeat in December 2024 Chronic la rge plaque psoriasis 040050961 L40.0 Plaque psoriasis, once again very stable on the current combo. She will continue with the Cosentyx 300 mg subcutaneo us every 4 weeks and methotrexa te 10 mg q. weekly. Will do the labs every 12 weeks Psoriasis of scalp 32145 8008 L40.9 Clinically stable and without any active lesion. Continue with the combinatio n of Cosentyx and the methotrexa te. [id number] CHIKI CELESTE [facility] [address] [place] [address] 07/06/2024 08:29:39 07/07/2024 04:04:43 Psoriasis with arthropathy 88833477 L40.50 58-year-ol d female with chronic psoriasis and psoriatic arthritis. She is now on the Cosentyx in combinatio n with the methotrexa te. Tolerating this combinatio n very well with excellent results. More than 90% improvemen t in the skin. More than 90% improvemen t in the joints. No side effects reported. Cardiopulm onary examinatio n is physiologi c. As mentioned before has failed Xeljanz XR. Has failed Remicade infusion and developed a rash on the Remicade. Has failed the monotherap y with methotrexa te. Further has failed Otezla, and anti-TNF therapy including Enbrel, Humira as well as [place] therapy Stelara. She will continue with the current combinatio n of Cosentyx 300 mg subcu every 4 weeks along with methotrexa te 10 mg once a week and folic acid 1 mg once a day. The side effect profile reviewed again. Other surgical history to include: S/P left middle finger DIP debridemen t and release surgery 12/2018. S/P Left long finger PIP joint contractur e release , 09/14/19. follow-up with me as planned. Refills were given Long-term current use of immunosuppressive drug [id number] Z79.899 Recent labsVit D 27 nanograms per mL low. I would suggest to take vitamin D3 5000 internatio nal units dailyCBC normalElec trolytes normalKidn ey normal 124gfrCalc ium normalLive r normalLast A1C was 7.5%. Tuberculos is screening 024591118 Z11.7 The tubercular screening is up-to-date . Last TB was 12/15/23. Repeat in 2024. Chronic la rge plaque psoriasis 580976072 L40.0 Plaque psoriasis, once again very stable on the current combo. She will continue with the Cosentyx 300 mg subcutaneo us every 4 weeks and methotrexa te 10 mg q. weekly. Will do the labs every 12 weeks [id number] CHIKI CELESTE [facility] [address] [place] [address] 01/15/2025 13:17:15 01/16/2025 05:14:18 Psoriasis with arthropathy 88819158 L40.50 59-year-ol d female with chronic psoriasis and psoriatic arthritis. She is now on the Cosentyx in combinatio n with the methotrexa te. Tolerating this combinatio n very well with excellent results. More than 90% improvemen t in the skin. More than 90% improvemen t in the joints. No side effects reported. Cardiopulm onary examinatio n is physiologi c. Musculoske letal is without any active synovitis, effusion or dactylitis . As mentioned before has failed Xeljanz XR. Has failed Remicade infusion and developed a rash on the Remicade. Has failed the monotherap y with methotrexa te. Further has failed Otezla, and anti-TNF therapy including Enbrel, Humira as well as IL therapy Stelara. She will continue with the current combinatio n of Cosentyx 300 mg subcu every 4 weeks along with methotrexa te 10 mg once a week and folic acid 1 mg once a day. The side effect profile reviewed again. Other surgical history to include: S/P left middle finger DIP debridemen t and release surgery 12/2018. S/P Left long finger PIP joint contractur e release , 09/14/19. f/u in 6 months. Long-term current use of immunosuppressive drug [id number] Z79.899 Patient brought the labs done locally: Dated 12/30/24 labsOveral l stable labs. Modest anemia, 12g hemoglobin 36% hematocrit . Normal WBC.Normal creatinine , GFR greater than 100 mL/min. Recently elevated blood sugar 160mg , AST 62 ALT 42.Triglyc erides elevatedTh yroid normal, Vit D 44Negative TB Tuberculos is screening [id number] Z11.7 The tubercular screening is up-to-date . Negative screening 12/15/2023. Repeat screening December 2024 reviewed from patient records. Repeat in December 2025. Chronic la rge plaque psoriasis [id number] L40.0 Plaque psoriasis, once again very stable on the current combo. She will continue with the Cosentyx 300 mg subcutaneo us every 4 weeks and methotrexa te 10 mg q. weekly. Will do the labs every 12 weeks Health Concerns Section Related Observation LastModified by Organization Detai ls LastModified Time None Recorded Concern Status LastModified by Organization Details LastModified Time None Recorded Advance Directives Directive None Recorded Payers Insurance Date Sequence Insurance Name Policy Number Policy Pedroza Covered Member ID Pedroza Member ID Guarantor Name 01/12/2025 [employer] - DMEPOS ASSIGNED (MEDICARE DME REGION B) Alethea Alanis [id number] Alethea Alanis 12/09/2019 PAYMENT PLAN Alethea Alanis 12/07/2019 1 [place] [id number] Alethea Alanis [id number] Alethea Alanis 01/12/2025 2 [place] [id number] Alethea Alanis [id number] Alethea Alanis 05/19/2021 2 [place] [id number] Alethea Alanis [id number] Alethea Alanis 01/12/2025 1 [place] Alethea Alanis [id number] Alethea Alanis Notes Date Note Type Note Provider Name and Address Organization Details Recorded Time 09/13/2023 text/html ROS as noted in the [facility] 57-year-old female seen today as a follow-up on psoriatic arthritis.She was last seen here in our rheumatology department on 06/29/2023 She is doing much better. No active joint pain or swelling. Participating in activities. She has recovered from the right ring finger DIP joint osteomyelitis. She is also off the Remicade infusion on account of skin rash.She is now on Xeljanz XR tolerating it well. Currently does not have any fevers or chills. As mentioned before, has failed Enbrel, Humira, methotrexate, hydroxychloroquine, Otezla. CHIKI CELESTE MD [address] [place] [address], [phone], [facility] 09/13/2023 13:06:40 12/15/2023 text/html ROS as noted in the [facility] 58-year-old female seen today as a follow-up on psoriatic arthritis.She was last seen here in our rheumatology department on 09/13/2023 Unfortunately because of the cost, not able to continue with the Xeljanz. Her communications tech is looking at Cosentyx possibility. As mentioned before she was not able to tolerate the Remicade infusion primarily because of the rash. She did well from the arthritis point of view on the Xeljanz but the skin has not improved. As mentioned before, has failed Enbrel, Humira, methotrexate, hydroxychloroquine, Otezla. CHIKI CELESTE MD [address] [place] [address], [phone], [facility] 12/15/2023 13:37:30 04/16/2024 text/html ROS as noted in the [facility] 58-year-old female seen today as a follow-up on psoriatic arthritis.She was last seen here in our rheumatology department on 12/15/23. She has started 300mg cosentyx q 4 weeks(September 2023) and has helped. She is doing very well.Currently on methotrexate 10mg.Tolerating combination very well no side effects reported. Has stopped the Xeljanz XR. As mentioned before she was not able to tolerate the Remicade infusion primarily because of the rash. She did well from the arthritis point of view on the Xeljanz but the skin has not improved. As mentioned before, has failed Enbrel, Humira, methotrexate, hydroxychloroquine, Otezla. CHIKI CELESTE MD [address] [place] [address] [place], [phone], [facility] 04/16/2024 09:52:33 07/06/2024 text/html ROS as noted in the [facility] 58-year-old female seen today as a follow-up on psoriatic arthritis.She was last seen here in our rheumatology department on 04/16/24.. She is coming along quite well. On the combination of Cosentyx 300 mg every 4 weeks along with methotrexate 10mg. No new complaints. Tolerating it well. As mentioned before, has failed Enbrel, Humira, methotrexate, hydroxychloroquine, Otezla, Remicade. CHIKI CELESTE MD [address] [place] [address], [phone], [facility] 07/06/2024 08:55:14 01/15/2025 text/html ROS as noted in the [facility]PI 59-year-old female seen today as a follow-up on psoriatic arthritis.She was last seen here in our rheumatology department on 07/06/24. She is coming along quite well. On the combination of Cosentyx 300 mg every 4 weeks along with methotrexate 10mg q weekly. No new complaints. CHIKI CELESTE MD [address] [place] [address], [phone], [facility] 01/15/2025 14:36:33 OBGyn Episode No OBEpisode recorded.
--- NOTE | 2025-07-08 08:00 | MM_ITS ---
PROCEDURE INFORMATION: Exam: MG Bilateral Screening 3D Mammography Exam date and time: 07/08/2025 7:58 AM Age: 59 years old Clinical indication: Screening. No family history of breast cancer. TECHNIQUE: Imaging protocol: Bilateral Screening tomosynthesis and 2D mammography including computer-aided detection (CAD) when performed. COMPARISON: 1. MG MM DIG MAMM DX UNILAT RT CAD 02/11/2023 2:21 PM 2. MG MM DIG SCREENING MAMM BI W/CAD 01/12/2023 3:48 PM 3. MG DMSB DIG MAMM-SCREEN SHEEBA 07/24/2015 9:01 AM FINDINGS: MAMMOGRAPHY: Breast composition: There are scattered areas of fibroglandular density. Mass: Two 0.8 cm masses in the right upper outer quadrant middle and posterior 3rd, 7 and 12 cm from the nipple respectively, questionable lobulations and/or notches. Architectural distortion: None. Calcifications: No suspicious calcifications. Asymmetric density: None. Skin thickening: None. Axillary adenopathy: None. IMPRESSION: Patient will be recalled for right diagnostic mammography with spot compression CC and MLO further evaluation of masses. ASSESSMENT: BI-RADS Category 0: Incomplete: Need Additional Imaging Evaluation.
== END 2025-07-08 23:59 | disposition home or self-care (01) ==
LOC: RAD 07:51
PROVIDERS: PCP Nurse Practitioner Family; Visit Provider Nurse Practitioner Family
DX: Z12.31 Encounter for screening mammogram for malignant neoplasm of breast (principal); R92.323 Mammographic fibroglandular density, bilateral breasts; N63.11 Unspecified lump in the right breast, upper outer quadrant
CPT/HCPCS: 77063; 77067

== ENCOUNTER 2025-07-29 13:49 | Outpatient (CLI) | payer MEDICARE, BC, SELFPAY ==
--- NOTE | 2025-07-29 14:00 | MM_ITS ---
PROCEDURE INFORMATION: Exam: MG Right Diagnostic Breast Tomosynthesis Exam date and time: 07/29/2025 2:03 PM Age: 59 years old Clinical indication: Callback from screening TECHNIQUE: Imaging protocol: Right Diagnostic tomosynthesis and 2D mammography including computer-aided detection (CAD) when performed. Unilateral or bilateral exam. COMPARISON: MG MM DIG SCREENING MAMM BI W/CAD 07/08/2025 7:58 AM FINDINGS: MAMMOGRAPHY: Breast composition: There are scattered areas of fibroglandular density. Breast mammogram findings: In the right breast lateral aspect, there are persistent partially circumscribed lobulated masses that measure 0.8 and 0.7 cm, respectively. These appear similar to each other. There is no associated distortion or suspicious calcifications. IMPRESSION: Lobulated masses in the right upper outer quadrant persists on additional spot compression views. These are located approximately 7 and 12 cm from the nipple. Targeted ultrasound is recommended for further evaluation. ASSESSMENT: BI-RADS Category 0: Incomplete- Need Additional Imaging Evaluation.
--- OUTSIDE RECORDS SUMMARY | 2025-07-29 14:44 | XMS_ITS | Clinical Summary ---
Author Organization [facility] Address [address] [place] [address] Phone Care Team Providers Care Harness Rigger Name Role Phone Lloyd Muhammad MD Unavailable [ ] Conditions or Problems Problem Name Problem Code Onset Date Status Entry Date Provider Comment Standard Description Annotate Other obesity due to excess calories 783357914 (SNOMED CT) 03/10 Active 03/10 Elbatejinder Franco Simple obesity Infection, skin and soft tissue 20487033 (SNOMED CT) 03/10 Active 03/10 Estee Edelen Soft tissue infection Acute osteomyeliti s, right index finger 32892698 (SNOMED CT) 03/10 Active 03/10 Estee Edelen Acute osteomyelitis of hand Cigarette smoker 27811414 (SNOMED CT) 03/10 Active 03/10 Estee Edelen Cigarette smoker Cellulitis of right finger L03.011 (ICD-10-CM) 03/10 Active 03/10 Estee Edelen Cellulitis of right finger Drug rash 75702389 (SNOMED CT) 01/19 Active 01/19 Jennifer Molina RN Eruption caused by drug Psoriatic Arthritis 01715725 (SNOMED CT) 12/19 Active 12/19 Molly Hitchcock Psoriasis with arthropathy Cellulitis of left finger L03.012 (ICD-10-CM) 12/18 Active 12/18 Sole Adán Cellulitis of left finger Infective (teno)synovi tis, right hand/finger (document bacterial agent) M65.141 (ICD-10-CM) 12/18 Inactive 12/18 Jennifer Kaz Other infective (teno)synoviti s, right hand Problem excluded fro m report: Trigger finger of right middle finger 4793143 (SNOMED CT) 12/18 Inactive 12/18 Jennifer Kza Acquired trigger finger Problem excluded fro m report: Trigger finger of left middle finger 1779512 (SNOMED CT) 12/20 Active 12/20 Jennifer Kaz Acquired trigger finger Infective (teno)synovi tis, left hand/finger 326285620 (SNOMED CT) 12/20 Active 12/20 Jennifer Kaz Synovitis/teno synovitis - hand Psoriasis, hands 9415205 (SNOMED CT) 12/19 Inactive 12/19 Fabrizio Sue [...] hand Trigger finger of right middle finger 4409160 (SNOMED CT) 12/18 Removed 12/18 Sole Daán Acquired trigger finger Medications Medication Instructions Start Date Stop Date Generic Name ND Provider AMOXICILLIN-POT CLAVULANATE 875-125 MG TABS Take 1 tablet by mouth twice a day amoxicillin-pot clavulanate 13368349100 Lloyd Muhammad MD MELOXICAM 15 MG TABS by mouth once a day meloxicam 74162068791 Tasia January GABAPENTIN 100 MG CAPS by mouth once a day gabapentin 50941582859 Tasia January AMOXICILLIN-POT CLAVULANATE 875-125 MG TABS Take 1 tablet by mouth twice a day amoxicillin-pot clavulanate 96324065623 Lloyd Muhammad MD GABAPENTIN 100 MG CAPS by mouth once a day gabapentin 85265263898 Bonnie Flores MELOXICAM 15 MG TABS by mouth once a day meloxicam 11888734402 Bonnie Flores ESCITALOPRAM OXALATE 10 MG TABS by mouth once a day escitalopram oxalate 86896972802 Bonnie Flores Super B Maxi Complex unspecified unspecified by mouth once a day vitamin b complex-folic acid 05353987673 Bonnie Flores PRAVACHOL 20 MG ORAL TABLET Take 1 by mouth once a day PRAVACHOL 20 MG ORAL TABLET Elba Frnaco ALL DAY ALLERGY 10 MG ORAL CAPSULE by mouth once a day ALL DAY ALLERGY 10 MG ORAL CAPSULE lEba Franco METFORMIN HCL 500 MG TABS Take 1 by mouth once a day metformin 44565923671 Elba Franco CALCIUM 600+D3 600-200 MG-UNIT ORAL TABLET Take by mouth twice a day CALCIUM 600+D3 600-200 MG-UNIT ORAL TABLET Elba Franco MELOXICAM 15 MG TABS Take 1 by mouth once a day meloxicam 87258265585 Elba Franco SUPER B-COMPLEX CAPS Take by mouth twice a day B [id number] A Elba Franco STELARA 45 MG/0.5ML SOLN 1 every three months ustekinumab 42278436812 Elba Franco SULFASALAZINE 500 MG TABS by mouth once a day sulfasalazine 12764475451 Elba Franco CETIRIZINE HCL 10 MG TABS 1 once a day cetirizine 22934043249 Elba Franco LEXAPRO 10 MG TABS 1 once a day escitalopram oxalate 43628225958 Elba Franco LOSARTAN POTASSIUM 25 MG TABS 1 once a day losartan 53273172303 Elba Franco METFORMIN HCL 850 MG TABS 1 twice a day metformin 43929895209 Elba Franco PRAVASTATIN SODIUM 20 MG TABS 1 once a day pravastatin 29660719120 Elba Franco CALCIUM 600+D3 600-200 MG-UNIT ORAL TABLET Take by mouth twice a day CALCIUM CARB-CHOLECALCIF ROGELIO 22958283243 Fabrizio Sue MD SUPER B-COMPLEX CAPS Take by mouth twice a day B [id number]-S A 39796019856 Fabrizio Sue MD PRAVACHOL 20 MG ORAL TABLET Take one by mouth daily PRAVASTATIN SODIUM 80736719124 Fabrizio Sue MD METFORMIN HCL 500 MG TABS Take one by mouth daily METFORMIN HCL 39523466419 Fabrizio Sue MD MELOXICAM 15 MG TABS Take one by mouth daily MELOXICAM 87472577865 Fabrizio Sue MD STELARA 45 MG/0.5ML SOLN 1 shot every thrre months USTEKINUMAB 24615379830 Fabrizio Sue MD TYGACIL SOLR 50mg IV Bid TIGECYCLINE SOLR 59247493274 Zeenat Cabrera RN TYGACIL SOLR 50mg IV Bid TIGECYCLINE SOLR 97833068769 Jennifer Molina RN CEFTRIAXONE SODIUM (IV) SOLR Rocephin 2G IV q24hrs OPAT CEFTRIAXONE SODIUM SOLR 75845604132 Jennifer Molina RN CUBICIN SOLUTION RECONSTITUTED Cubicin 500mg IV q24hrs OPAT DAPTOMYCIN SOLR 90699450750 Jennifer Molina RN FLUCONAZOLE 200 MG TABS one tablet daily FLUCONAZOLE 09748749501 Fabrizio Sue MD CUBICIN SOLUTION RECONSTITUTED Cubicin 500mg IV q24hrs OPAT DAPTOMYCIN SOLR 88607032001 Karina Welch RN CEFTRIAXONE SODIUM (IV) SOLR Rocephin 2G IV q24hrs OPAT CEFTRIAXONE SODIUM SOLR 24491691592 Karina Welch RN SULFASALAZINE 500 MG TABS by mouth daily SULFASALAZINE 34726903411 Gasper K ALL DAY ALLERGY 10 MG ORAL CAPSULE by mouth daily CETIRIZINE HCL 70175490962 Gasper K Medications Administered No information available. Allergies, Adverse Reactions, Alerts No information available. Results Date Name Value Unit Range Flag Description External Other: Patient courtney al update - Email Push, [facility] ... PAT E-MAIL [email or web address] patient's e-mail address External Other: Patient courtney matute update - AccountStatus, [facility] I ... 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 Dietary management education, guidance, and counseling [...] Name Date Entry Date CPT-sl STAT Labs [id number] CBC with Differential 2018 CPT-95051 C- reactive protein CPT-CLR Central Line Removal CPT-DC Discontinue IV antibiotics 2 CPT-CLR Central Line Removal CPT-denzel Change IV antibiotics 01/22 CPT-J3243 Tigecycline CPT-denzel Change IV antibiotics 01/19 CPT-38654 ECG ROUTINE ECG W/LEAST 12 LDS W/I&R 2018 CPT-ca Continue IV antibiotics 2018 CPT-ca Continue IV antibiotics 2018 CPT-ca Continue IV antibiotics 2018 CPT-ca Continue IV antibiotics 2018 CPT-78589 CMP CPT-60248 US, Abdomen RUQ CPT-73004 CMP [id number] CBC with Differential 2018 CPT-08064 C- reactive protein [id number], [id number] CPK CPT-velia New IV antibiotic CPT-74600 PICC Line Insertion CPT- stat weekly Stat [...]
--- OUTSIDE RECORDS SUMMARY | 2025-07-29 14:45 | XMS_ITS | Clinical Summary ---
Author Organization [facility] Address [address] [place] [address] Care Team Providers Care Columnist/Commentator Name Role Phone Ernestine Mcelroy APRN Primary [...] SCREENING 01/23/2020 INFLUENZA VACCINE 05/03/2025 Insurance [facility] PPO Member Subscriber Plan / Payer (Ef fective 2019-Present) Name:Alethea Alanis Relation to Subscriber:Self Name:Alethea Alanis Payer ID:[id number] (NAIC) Type:Not on file Address: [facility] [id number] [place] [id number] Care Teams Columnist/Commentator Relationship Specialty Start Date End Date Ernestine Mcelroy APRN PCP - General Internal Medicine 12/22/18
== END 2025-07-29 23:59 | disposition home or self-care (01) ==
LOC: RAD 13:50
PROVIDERS: PCP Nurse Practitioner Family; Visit Provider Nurse Practitioner Family
DX: N63.11 Unspecified lump in the right breast, upper outer quadrant (principal); R92.321 Mammographic fibroglandular density, right breast; R92.8 Other abnormal and inconclusive findings on diagnostic imaging of breast
CPT/HCPCS: 77061; 77065; G0279

== ENCOUNTER 2025-08-07 07:56 | Outpatient (CLI) | payer MEDICARE, BC, SELFPAY ==
--- OUTSIDE RECORDS SUMMARY | 2025-08-07 07:59 | XMS_ITS | Data Portability ---
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 ILYA FORD Primary Care Provider [phone] Assessment Encounter Date Assessment Date Assessment LastModified [...] stimulated gamma interferon, qual, blood 2023 024 [facility], [address] [place] [address], [place], [address], 09:06:42 CBC w/ auto diff 2022 023 [facility], [address] [place] [address], [phone], 3 09:47:21 ALT (alanine aminotransf erase), serum or plasma 2022 023 [facility], [address] [place] [address], [address], 3 10:00:30 AST/SGOT (aspartate aminotransf erase), serum or plasma 2022 023 [facility], [address] [place] [address], [address], 3 10:00:26 creatinine, serum or plasma 2022 023 [facility], [address] [place] [address], [address], 3 10:00:28 Referral None recorded. Procedures None recorded. Surgeries None recorded. Imaging None recorded. Medication Orders methotrexat e sodium 2.[address] [id number], [address] [place], [address], 4 08:44:09 folic acid 1 mg tablet [address] [id number], [address] [place], [address], 4 08:44:09 clobetasol 0.05 % scalp solution [address] [id number], [address] [place] [address], [address], 3 08:50:34 Patient TargetsNo targets recorded. Patient InstructionsNo instructions recorded. Reason for Referral None Reported. Results Created Date Observation Date Name Description Value Unit Range Abnormal Flag Note LastModifiedBy Organization Detail LastModifiedTime 09/13/2009/13/2023 COMPL ETE BLOOD COUNT white blood cells 9.4 10*3/ uL 3.8-10 .8 normal Not Available [facility] [address] [place] [address], [address], 09/13/2023 09:47:21 09/13/20 23 09/13/2023 COMPL ETE BLOOD COUNT red blood cells 4.35 10*6/ uL 3.80-5 .20 normal Not Available [facility] [address] [place] [address], [address], 09/13/2023 09:47:21 09/13/20 23 09/13/2023 COMPL ETE BLOOD COUNT hemoglobin 12.7 g/dL 12.0-1 6.0 normal Not Available [facility] [address] [place] [address], [address], 09/13/2023 09:47:21 09/13/20 23 09/13/2023 COMPL ETE BLOOD COUNT hematocrit 36.8 % 35.0-4 7.0 normal Not Available [facility] [address] [place] [address], [address], 09/13/2023 09:47:21 09/13/20 23 09/13/2023 COMPL ETE BLOOD COUNT MCV 85 fL 80-100 normal Not Available [facility] [address] [place] [address], [address], 09/13/2023 09:47:21 09/13/20 23 09/13/2023 COMPL ETE BLOOD COUNT MCH 29 pg 26-35 normal Not Available [facility] [address] [place] [address], [address], 09/13/2023 09:47:21 09/13/20 23 09/13/2023 COMPL ETE BLOOD COUNT MCHC 35 g/dL 32-36 normal Not Available [facility] [address] [place] [address], [address], 09/13/2023 09:47:21 09/13/20 23 09/13/2023 COMPL ETE BLOOD COUNT RDW 13.3 % 11.0-1 5.0 normal Not Available [facility] [address] [place] [address], [address], 09/13/2023 09:47:21 09/13/20 23 09/13/2023 COMPL ETE BLOOD COUNT MPV 7.1 fL 6.2-10 .5 normal Not Available [facility] [address] [place] [address], [address], 09/13/2023 09:47:21 09/13/20 23 09/13/2023 COMPL ETE BLOOD COUNT platelet count 295 10*3/ uL 150-40 0 normal Not Available [facility] [address] [place] [address], [address], 09/13/2023 09:47:21 09/13/20 23 09/13/2023 COMPL ETE BLOOD COUNT neutrophil,a bsolute 6.2 10*3/ uL 1.6-8. 4 normal Not Available [facility] [address] [place] [address], [address], 09/13/2023 09:47:21 09/13/20 23 09/13/2023 COMPL ETE BLOOD COUNT lymphocyte,a bsolute 2.5 10*3/ uL 0.4-5. 1 normal Not Available [facility] [address] [place] [address], [address], 09/13/2023 09:47:21 09/13/20 23 09/13/2023 COMPL ETE BLOOD COUNT monocyte,abs olute 0.6 10*3/ uL 0.0-1. 2 normal Not Available [facility] [address] [place] [address], [address], 09/13/2023 09:47:21 09/13/20 23 09/13/2023 COMPL ETE BLOOD COUNT eosinophil,a bsolute 0.1 10*3/ uL 0.0-0. 8 normal Not Available [facility] [address] [place] [address], [address], 09/13/2023 09:47:21 09/13/20 23 09/13/2023 COMPL ETE BLOOD COUNT basophil,abs olute 0.0 10*3/ uL 0.0-0. 3 normal Not Available [facility] [address] [place] [address], [address], 09/13/2023 09:47:21 09/13/20 23 09/13/2023 COMPL ETE BLOOD COUNT % neutrophils 66.1 % 42.0-7 8.0 normal Not Available [facility] [address] [place] [address], [address], 09/13/2023 09:47:21 09/13/20 23 09/13/2023 COMPL ETE BLOOD COUNT % lymphocytes 26.9 % 11.0-4 7.0 normal Not Available [facility] [address] [place] [address], [address], 09/13/2023 09:47:21 09/13/20 23 09/13/2023 COMPL ETE BLOOD COUNT % monocytes 6.1 % 0.0-11 .0 normal Not Available [facility] [address] [place] [address], [address], 09/13/2023 09:47:21 09/13/20 23 09/13/2023 COMPL ETE BLOOD COUNT % eosinophils 0.6 % 0.0-7. 0 normal Not Available [facility] [address] [place] [address], [address], 09/13/2023 09:47:21 09/13/20 23 09/13/2023 COMPL ETE BLOOD COUNT % basophils 0.3 % 0.0-3. 0 normal Not Available [facility] [address] [place] [address], [address], 09/13/2023 09:47:21 09/13/20 23 09/13/2023 COMPL ETE BLOOD COUNT nucleated red cells 0.1 % 0.0-0. 9 normal Not Available [facility] [address] [place] [address], [address], 09/13/2023 09:47:21 09/13/20 23 09/13/2023 COMPL ETE BLOOD COUNT nucleated RBCs, absolute 0.01 10*3/ uL not estab. normal Not Available [facility] [address] [place] [address], [address], 09/13/2023 09:47:21 09/13/20 23 09/13/2023 AST AST 24 U/L 0-32 normal Not Available [facility] [address] [place] [address], [address], 09/13/2023 10:00:26 09/13/20 23 09/13/2023 CREAT ININE creatinine 0.69 mg/dL 0.50-0 .95 normal Not Available [facility] [address] [place] [address], [address], 09/13/2023 10:00:28 09/13/20 23 09/13/2023 ALT ALT 13 U/L 0-33 normal Not Available [facility] [address] [place] [address], [address], 09/13/2023 10:00:30 12/15/19 24 12/18/2023 QUANT IFERO N TB GOLD qtb gold NEGATI VE negati ve normal Negat demi test resul t. M. tuber culos is compl ex infec tion unlik marguerite. Not Available [facility] [address] [place] [address], [address], 12/18/2023 09:06:42 12/15/19 24 12/18/2023 QUANT IFERO N TB GOLD nil 0.06 IU/mL normal Not Available [facility] [address] [place] [address], [address], 12/18/2023 09:06:42 12/15/19 24 12/18/2023 QUANT IFERO N TB GOLD mitogen nil 6.97 IU/mL normal Not Available [facility] [address] [place], [address], 12/18/2023 09:06:42 12/15/19 24 12/18/2023 QUANT IFERO N TB GOLD TB1 nil 0.01 IU/mL normal Not Available [facility] [address] [place], [address], 12/18/2023 09:06:42 12/15/19 24 12/18/2023 QUANT IFERO [...] oxic T-lym phocy gal. For addit ional infor dee islas e refer to https :[email or web address] ron on.qu [email or web address] [email or web address] [email or web address] com/f aq/FA Q204 (This link is being provi ded for infor audi cunningham/ educa alex l purpo ses only. ) Not Available [facility] [address] [place], [address], 12/18/2023 09:06:42 Result Notes None recorded. Problems Name Problem SNOMED Code Status Onset Date Resolution Date Notes Provider Name and Address Organization Details Recorded Time Trigger finger Active 019 DARIEN FORD, OTR/L, CHT [address] [place], [address] , [facility] 02/05/2019 11:36:43 Problem Notes None recorded. Procedures Surgical History Date Name Laterality Status Provider Name and Address Organization Details Recorded Time 03/09/20 23 Op Note completed PORSCHE MCKENZIE MD [address] [place], [address], [facility] 04/14/2023 09:10:20 03/09/20 23 Other completed Nancy De Santiago [facility] 03/16/2023 08:40:16 02/22/20 23 Remicade Infusion completed Hussain Tejeda [place] [facility] [place] [facility] 02/21/2023 12:44:25 02/09/20 23 Orthotic, FO, Static Custom completed DARIEN FORD, OTR/L, CHT [address] [place], [address], [facility] 02/08/2023 09:51:16 01/25/20 23 Op Note completed PORSCHE MCKENZIE MD [address] [place], [address], [facility] 01/24/2023 15:41:36 01/25/20 23 Other completed Annel Ryder [facility] 02/08/2023 13:11:52 12/28/19 23 Remicade Infusion [place] Huss[place] Tejeda [place] [facility] [place] [facility] 12/27/2022 13:42:26 11/01/19 23 Remicade Infusion [place] Contreras Kelley [place] [facility] [facility] 11/01/2022 11:33:02 08/30/20 22 Remicade Infusion [place] Contreras Kelley [place] [facility] 08/30/2022 14:56:11 08/04/20 22 Remicade Infusion [place] Contreras Kelley [place] [facility] 08/04/2022 11:38:30 07/21/20 22 Remicade Infusion completed Olga Macielsuze [facility] 07/21/2022 15:37:59 02/11/20 21 Injection - Joint/Bursa, Small, w/o US completed CHIKI CELESTE MD [address] [place], [address], [facility] 02/10/2021 11:12:25 12/13/19 20 OT Manual Therapy completed DARIEN FORD, OTR/L, CHT [address] [place], [address], [facility] 12/13/2019 10:58:19 12/13/19 20 PT Paraffin Bath completed DARIEN FORD OTR/L, CHT [address] [place], [address], [facility] 12/13/2019 10:21:06 12/03/19 20 OT Therapeutic Exercise completed DARIEN FORD OTR/L, CHT [address] [place], [address], [facility] 12/03/2019 09:49:20 12/03/19 20 OT Manual Therapy completed DARIEN FORD OTR/L, CHT [address] [place], [address], [facility] 12/03/2019 08:53:33 12/03/19 20 PT Paraffin Bath completed DARIEN FORD OTR/L, CHT [address] [place], [address], [facility] 12/03/2019 08:53:33 11/26/19 20 OT Therapeutic Exercise completed DARIEN FORD OTR/L, CHT [address] [place], [address], [facility] 11/26/2019 12:14:24 11/26/19 20 OT Manual Therapy completed DARIEN FORD OTR/L, CHT [address] [place], [address], [facility] 11/26/2019 12:14:27 11/26/19 20 PT Paraffin Bath completed DARIEN K LOGAN, OTR/L, CHT [address] [place], [address], [facility] 11/26/2019 08:56:20 11/19/19 20 OT Therapeutic Exercise completed DARIEN FORD, OTR/L, CHT [address] [place], [address], [facility] 11/19/2019 09:51:24 11/19/19 20 OT Manual Therapy completed DARIEN FORD, OTR/L, CHT [address] [place], [address], [facility] 11/19/2019 10:08:05 11/19/19 20 PT Paraffin Bath completed DARIEN FORD, OTR/L, CHT [address] [place], [address], [facility] 11/19/2019 09:51:24 11/19/19 20 PT Ultrasound completed DARIEN FORD, OTR/L, CHT [address] [place], [address], [facility] 11/19/2019 09:51:24 11/12/19 20 OT Therapeutic Exercise completed DARIEN FORD, OTR/L, CHT [address] [place], [address], [facility] 11/12/2019 09:31:35 11/12/19 20 OT Manual Therapy completed DARIEN FORD, OTR/L, CHT [address] [place], [address], [facility] 11/12/2019 09:31:35 11/12/19 20 PT Paraffin Bath completed DARIEN FORD, OTR/L, CHT [address] [place], [address], [facility] 11/12/2019 09:31:35 11/12/19 20 PT Ultrasound completed DARIEN FORD, OTR/L, CHT [address] [place], [address], [facility] 11/12/2019 09:31:35 11/08/19 20 OT Therapeutic Exercise completed DARIEN FORD, OTR/L, CHT [address] [place], [address], [facility] 11/08/2019 09:05:19 11/08/19 20 OT Manual Therapy completed DARIEN FORD, OTR/L, CHT [address] [place], [address], [facility] 11/08/2019 09:05:19 11/08/19 20 PT Paraffin Bath completed DARIEN FORD, OTR/L, CHT [address] [place], [address], [facility] 11/08/2019 09:05:19 11/08/19 20 PT Ultrasound completed DARIEN FORD, OTR/L, CHT [address] [place], [address], [facility] 11/08/2019 09:05:19 11/05/19 20 OT Therapeutic Exercise completed DARIEN FORD OTR/L, CHT [address] [place], [address], [facility] 11/05/2019 11:18:25 11/05/19 20 OT Manual Therapy completed DARIEN FORD OTR/L, CHT [address] [place], [address], [facility] 11/05/2019 09:11:28 11/05/19 20 PT Paraffin Bath completed DARIEN FORD, OTR/L, CHT [address] [place], [address], [facility] 11/05/2019 09:11:29 11/05/19 20 PT Ultrasound completed DARIEN FORD OTR/L, CHT [address] [place], [address], [facility] 11/05/2019 09:40:28 11/01/19 20 OT Therapeutic Exercise completed DARIEN FORD, OTR/L, CHT [address] [place], [address], [facility] 11/01/2019 10:12:04 11/01/19 20 OT Manual Therapy completed DARIEN FORD OTR/L, CHT [address] [place], [address], [facility] 11/01/2019 10:11:45 11/01/19 20 PT Paraffin Bath completed DARIEN FORD, OTR/L, CHT [address] [place], [address], [facility] 11/01/2019 10:11:14 10/29/19 20 OT Therapeutic Exercise completed DARIEN FORD, OTR/L, CHT [address] [place], [address], [facility] 10/29/2019 09:39:35 10/29/19 20 OT Manual Therapy completed DARIEN FORD, OTR/L, CHT [address] [place], [address], [facility] 10/29/2019 09:39:21 10/29/19 20 PT Paraffin Bath completed DARIEN FORD, OTR/L, CHT [address] [place], [address], [facility] 10/29/2019 08:47:26 10/25/19 20 OT Therapeutic Exercise completed DARIEN FORD, OTR/L, CHT [address] [place], [address], [facility] 10/25/2019 10:00:30 10/25/19 20 OT Manual Therapy completed DARIEN FORD, OTR/L, CHT [address] [place], [address], [facility] 10/25/2019 10:00:30 10/25/19 20 PT Paraffin Bath completed DARIEN FORD, OTR/L, CHT [address] [place], [address], [facility] 10/25/2019 10:00:30 10/22/19 20 OT Therapeutic Exercise completed DARIEN FORD, OTR/L, CHT [address] [place], [address], [facility] 10/22/2019 08:52:51 10/22/19 20 OT Manual Therapy completed DARIEN FORD, OTR/L, CHT [address] [place], [address], [facility] 10/22/2019 09:37:54 10/22/19 20 PT Paraffin Bath completed DARIEN FORD, OTR/L, CHT [address] [place], [address], [facility] 10/22/2019 08:52:51 10/18/19 20 OT Therapeutic Exercise completed DARIEN FORD, OTR/L, CHT [address] [place], [address], [facility] 10/18/2019 09:44:59 10/18/19 20 OT Manual Therapy completed DARIEN FORD, OTR/L, CHT [address] [place], [address], [facility] 10/18/2019 08:52:35 10/18/19 20 PT Paraffin Bath completed DARIEN FORD, OTR/L, CHT [address] [place], [address], [facility] 10/18/2019 08:52:36 10/15/19 20 OT Therapeutic Exercise completed DARIEN FORD, OTR/L, CHT [address] [place], [address], [facility] 10/15/2019 09:40:05 10/15/19 20 OT Manual Therapy completed DARIEN FORD, OTR/L, CHT [address] [place], [address], [facility] 10/15/2019 09:40:10 10/15/19 20 PT Paraffin Bath completed DARIEN FORD, OTR/L, CHT [address] [place], [address], [facility] 10/15/2019 08:45:44 10/12/19 20 OT Therapeutic Exercise completed DARIEN FORD, OTR/L, CHT [address] [place], [address], [facility] 10/12/2019 10:44:31 10/12/19 20 OT Manual Therapy completed DARIEN FORD, OTR/L, CHT [address] [place], [address], [facility] 10/12/2019 09:11:11 10/12/19 20 PT Paraffin Bath completed DARIEN FORD, OTR/L, CHT [address] [place], [address], [facility] 10/12/2019 09:11:11 10/10/19 20 OT Therapeutic Exercise completed DARIEN FORD, OTR/L, CHT [address] [place], [address], [facility] 10/10/2019 09:54:00 10/10/19 20 OT Manual Therapy completed DARIEN FORD, OTR/L, CHT [address] [place], [address], [facility] 10/10/2019 09:07:00 10/10/19 20 PT Paraffin Bath completed DARIEN FORD, OTR/L, CHT [address] [place], [address], [facility] 10/10/2019 09:07:00 10/04/19 20 OT Therapeutic Exercise completed DARIEN FORD, OTR/L, CHT [address] [place], [address], [facility] 10/04/2019 10:20:28 10/04/19 20 OT Manual Therapy completed DARIEN FORD, OTR/L, CHT [address] [place], [address], [facility] 10/04/2019 11:20:05 10/04/19 20 PT Paraffin Bath completed DARIEN FORD, OTR/L, CHT [address] [place], [address], [facility] 10/04/2019 10:20:28 10/01/20 19 OT Therapeutic Exercise completed DARIEN FORD, OTR/L, CHT [address] [place], [address], [facility] 10/01/2019 10:18:48 10/01/20 19 OT Manual Therapy completed DARIEN FORD, OTR/L, CHT [address] [place], [address], [facility] 10/01/2019 10:18:52 10/01/20 19 PT Paraffin Bath completed DARIEN FORD, OTR/L, CHT [address] [place], [address], [facility] 10/01/2019 10:18:20 09/27/20 19 OT Therapeutic Exercise completed ALEX WILD JR, OTR/L, CHT [address] [place], [address], [facility] 2019 11:11:03 09/27/20 19 OT Manual Therapy completed ALEX WILD JR, OTR/L, CHT [address] [place], [address], [facility] 2019 10:01:09 09/24/20 19 OT Therapeutic Exercise completed DARIEN FORD, OTR/L, CHT [address] [place], [address], [facility] 09/24/2019 09:54:08 09/24/20 19 OT Manual Therapy completed DARIEN FORD, OTR/L, CHT [address] [place], [address], [facility] 09/24/2019 09:54:00 09/24/20 19 PT Hot/Cold Pack completed DARIEN FORD, OTR/L, CHT [address] [place], [address], [facility] 09/24/2019 09:54:21 09/21/20 19 OT Manual Therapy completed DARIEN FORD, OTR/L, CHT [address] [place], [address], [facility] 09/21/2019 08:27:20 09/19/20 19 OT Manual Therapy completed DARIEN FORD, OTR/L, CHT [address] [place], [address], [facility] 09/19/2019 15:23:47 09/17/20 19 Orthotic, HFO, Static Custom completed DARIEN FORD, OTR/L, CHT [address] [place], [address], [facility] 09/17/2019 13:30:53 09/17/20 19 OT Evaluation - Moderate complexity completed DARIEN FORD OTR/L, CHT [address] [place], [address], [facility] 09/17/2019 13:12:43 09/17/20 19 OT Manual Therapy completed DARIEN FORD OTR/L, CHT [address] [place], [address], [facility] 09/17/2019 13:30:57 09/14/20 19 Op Note completed PORSCHE MCKENZIE MD [address] [place], [address], [facility] 09/14/2019 10:10:44 06/13/20 19 OT Therapeutic Exercise completed DARIEN FORD OTR/L, CHT [address] [place], [address], [facility] 06/13/2019 08:30:38 06/13/20 19 OT Manual Therapy completed DARIEN FORD OTR/L, CHT [address] [place], [address], [facility] 06/13/2019 08:07:02 06/13/20 19 PT Paraffin Bath completed DARIEN OFRD OTR/L, CHT [address] [place], [address], [facility] 06/13/2019 08:07:02 05/31/20 19 Orthotic Management; Subsequent Encounter completed DARIEN FORD OTR/L, CHT [address] [place], [address], [facility] 05/31/2019 08:06:55 05/31/20 19 OT Therapeutic Exercise completed DARIEN FORD OTR/L, CHT [address] [place], [address], [facility] 05/31/2019 08:43:57 05/31/20 19 OT Manual Therapy completed DARIEN FORD OTR/L, CHT [address] [place], [address], [facility] 05/31/2019 08:43:55 05/31/20 19 PT Paraffin Bath completed DARIEN FORD OTR/L, CHT [address] [place], [address], [facility] 05/31/2019 08:06:13 05/16/20 19 OT Therapeutic Exercise completed DARIEN FORD OTR/L, CHT [address] [place], [address], [facility] 05/16/2019 09:37:48 05/16/20 19 OT Manual Therapy completed DARIEN FORD OTR/L, CHT [address] [place], [address], [facility] 05/16/2019 09:37:50 05/16/20 19 PT Paraffin Bath completed DARIEN FORD OTR/L, CHT [address] [place], [address], [facility] 05/16/2019 09:37:51 05/04/20 19 OT Evaluation - Low complexity completed DARIEN FORD OTR/L, CHT [address] [place], [address], [facility] 05/04/2019 17:00:00 04/30/20 19 Op Note completed PORSCHE MCKENZIE MD [address] [place], [address], [facility] 04/30/2019 09:49:50 03/21/20 19 OT Manual Therapy completed DARIEN FORD OTR/L, CHT [address] [place], [address], [facility] 03/21/2019 10:18:25 03/21/20 19 PT Paraffin Bath completed DARIEN FORD OTR/L, CHT [address] [place], [address], [facility] 03/21/2019 09:57:29 03/13/20 19 OT Therapeutic Exercise completed DARIEN FORD OTR/L, CHT [address] [place], [address], [facility] 03/13/2019 10:41:08 03/13/20 19 OT Manual Therapy completed DARIEN FORD, OTR/L, CHT [address] [place], [address], [facility] 03/13/2019 10:41:05 03/13/20 19 PT Paraffin Bath completed DARIEN FORD, OTR/L, CHT [address] [place], [address], [facility] 03/13/2019 09:17:22 03/07/20 19 OT Therapeutic Exercise completed DARIEN FORD, OTR/L, CHT [address] [place], [address], [facility] 03/07/2019 10:12:46 03/07/20 19 OT Manual Therapy completed DARIEN FORD, OTR/L, CHT [address] [place], [address], [facility] 03/07/2019 09:08:27 03/07/20 19 PT Paraffin Bath completed DARIEN FORD, OTR/L, CHT [address] [place], [address], [facility] 03/07/2019 09:08:27 02/29/20 19 OT Therapeutic Exercise completed DARIEN FORD, OTR/L, CHT [address] [place], [address], [facility] 02/28/2019 10:21:21 02/29/20 19 OT Manual Therapy completed DARIEN FORD, OTR/L, CHT [address] [place], [address], [facility] 02/28/2019 10:21:15 02/29/20 19 PT Paraffin Bath completed ADRIEN FORD, OTR/L, CHT [address] [place], [address], [facility] 02/28/2019 10:22:42 02/23/20 19 Injection - Trigger Finger, Ortho completed PORSCHE MCKENZIE MD [address] [place], [address], [facility] 02/23/2019 09:39:16 02/23/20 19 OT Therapeutic Exercise completed DARIEN FORD, OTR/L, CHT [address] [place], [address], [facility] 02/22/2019 12:08:33 02/23/20 19 OT Manual Therapy completed DARIEN FORD, OTR/L, CHT [address] [place], [address], [facility] 02/22/2019 12:08:25 02/23/20 19 PT Paraffin Bath completed DARIEN FORD, OTR/L, CHT [address] [place], [address], [facility] 02/22/2019 11:50:45 02/20/20 19 OT Therapeutic Exercise completed DARIEN FORD, OTR/L, CHT [address] [place], [address], [facility] 02/19/2019 10:04:26 02/20/20 19 OT Manual Therapy completed DARIEN FORD, OTR/L, CHT [address] [place], [address], [facility] 02/19/2019 10:04:26 02/20/20 19 PT Paraffin Bath completed DARIEN FORD, OTR/L, CHT [address] [place], [address], [facility] 02/19/2019 10:04:26 02/15/20 19 OT Therapeutic Exercise completed DARIEN FORD, OTR/L, CHT [address] [place], [address], [facility] 02/14/2019 10:05:14 02/15/20 19 OT Manual Therapy completed DARIEN FORD, OTR/L, CHT [address] [place], [address], [facility] 02/14/2019 10:05:14 02/15/20 19 PT Paraffin Bath completed DARIEN FORD, OTR/L, CHT [address] [place], [address], [facility] 02/14/2019 10:05:14 02/13/20 19 OT Therapeutic Exercise completed DARIEN FORD, OTR/L, CHT [address] [place], [address], [facility] 02/12/2019 11:35:33 02/13/20 19 OT Manual Therapy completed DARIEN FORD, OTR/L, CHT [address] [place], [address], [facility] 02/12/2019 10:56:43 02/13/20 19 PT Paraffin Bath completed DARIEN FORD, OTR/L, CHT [address] [place], [address], [facility] 02/12/2019 10:56:43 02/10/20 19 OT Therapeutic Exercise completed Meir Almaguer [facility] 02/09/2019 10:02:09 02/10/20 19 OT Manual Therapy completed Meir Almaguer [facility] 02/09/2019 10:02:09 02/10/20 19 PT Paraffin Bath completed Meir Almaguer [facility] 02/09/2019 10:02:09 02/06/20 19 OT Therapeutic Exercise completed DARIEN FORD, OTR/L, CHT [address] [place], [address], [facility] 02/05/2019 11:33:35 02/06/20 19 OT Manual Therapy completed DARIEN FORD, OTR/L, CHT [address] [place], [address], [facility] 02/05/2019 11:33:31 02/06/20 19 PT Paraffin Bath completed DARIEN FORD, OTR/L, CHT [address] [place], [address], [facility] 02/05/2019 11:33:40 02/03/20 19 OT Therapeutic Exercise completed DARIEN FORD, OTR/L, CHT [address] [place], [address], [facility] 02/02/2019 11:11:11 02/03/20 19 OT Manual Therapy completed DARIEN FORD, OTR/L, CHT [address] [place], [address], [facility] 02/02/2019 11:11:04 02/03/20 19 PT Paraffin Bath completed DARIEN FORD OTR/L, CHT [address] [place], [address], [facility] 02/02/2019 10:13:11 02/01/20 19 OT Therapeutic Exercise completed DARIEN FORD OTR/L, CHT [address] [place], [address], [facility] 01/31/2019 11:28:41 02/01/20 19 OT Manual Therapy completed DARIEN FORD OTR/L, CHT [address] [place] [address], [address], [facility] 01/31/2019 10:57:57 02/01/20 19 PT Paraffin Bath completed DARIEN FORD OTR/L, CHT [address] [place] [address], [address], [facility] 01/31/2019 10:23:49 12/19/19 19 Op Note completed PORSCHE MCKENZIE MD [address] [place], [address], [facility] 12/18/2018 15:55:39 cardiac catheterization completed Annel Ryder [facility] 12/15/2023 10:36:11 Imaging Results None recorded. Procedure [...] ICD 10 - L40.59 - drug by [employer]. Not Available Not Available Not Available prednison [...] completed Not Available Not Available Not Available Idalou 5 mg-325 mg tablet TAKE 1 TAB [...] oral route for 90 days. 03/13 completed [facility] pharmacy Not Available Not Available Not [...] INFUSION Not Available Not Available Not Available Enders 3-6-9 04/11 completed Not Available Not Available [...] Updated DateTime 4 157.48 cm 35.3 kg/m2 71627.0 3 g 16 /min 92 /min 97 % 97 % 122/76 mm[Hg] Annel [facility] 4 10:37:04 Date Recorded Body height Respiratory rate Body mass index (BMI) Body weight Oxygen saturation Oxygen saturation in Arterial blood by Pulse oximetry Heart rate Systolic And Diastolic Provider Name and Address Organization Details Last Updated DateTime 5 157.48 cm 16 /min 37.5 kg/m2 99808.4 4 g 96 % 96 % 78 /min 122/74 mm[Hg] Taras Quintana [facility] 5 13:37:34 Date Recorded Body height Body mass index (BMI) Body weight Respiratory rate Heart rate Oxygen saturation Oxygen saturation in Arterial blood by Pulse oximetry Systolic And Diastolic Provider Name and Address Organization Details Last Updated DateTime 4 157.48 cm 36.6 kg/m2 25473.5 7 g 16 /min 85 /min 99 % 99 % 128/72 mm[Hg] Annel [facility] 4 09:18:51 Date Recorded Body height Body mass index (BMI) Body weight Respiratory rate Heart rate Oxygen saturation Oxygen saturation in Arterial blood by Pulse oximetry Systolic And Diastolic Provider Name and Address Organization Details Last Updated DateTime 4 157.48 cm 37.5 kg/m2 12450.4 4 g 16 /min 77 /min 95 % 95 % 128/74 mm[Hg] Taras Caroerson [facility] 4 08:37:42 Date Recorded Body height Body mass index (BMI) Body weight Respiratory rate Heart rate Oxygen saturation Oxygen saturation in Arterial blood by Pulse oximetry Systolic And Diastolic Provider Name and Address Organization Details Last Updated DateTime 3 157.48 cm 33.5 kg/m2 51325.5 g 16 /min 71 /min 93 % 93 % 126/80 mm[Hg] Annel Ryder [facility] 3 08:40:44 Social History Question Answer Notes LastModified by [employer] Details LastModified Time Tobacco Smoking Status [facility] 13:37:05 What Is Your Level Of Caffeine Consumption? Moderate Soda, Coffee [email or web address] Information not available 12/14/2018 How Much Tobacco Do You Chew? None [email or web address] Information not available 05/31/2019 Which Of Your Hands Is Dominant? Right [email or web address] Information not available 12/14/2018 Marital Status [email or web address] Informatio n not available 12/14/2018 What Was The Date Of Your Most Recent Tobacco Screening? 01/15/2025 [email or web address] Information not available 01/15/2025 How Much Tobacco Do You Smoke? 1.5 PPD [email or web address] Information not available 05/31/2019 Has Tobacco Cessation Counseling Been Provided? No [email or web address] Information not available 12/14/2018 How Many Years Have You Smoked Tobacco? 35 [email or web address] Information not available 05/31/2019 Have You Recently Traveled Abroad? No [email or web address] Information not available 11/05/2022 Sex: Female Functional Status Question Answer Note LastModified by [employer] Details LastModified Time Do you use any illicit or recreational drugs? No [email or web address] Information not available 12/14/2018 Do you or have you ever used any other forms of tobacco or nicotine? No [email or web address] Information not available 11/09/2021 What is your level of alcohol consumption? None [email or web address] Information not available 12/14/2018 Do you or have you ever used smokeless tobacco? Never used smokeless tobacco [email or web address] Information not available 05/31/2019 Are you currently employed? 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 Former user of electronic cigarettes [email or web address] Information not available 05/31/2019 Mental Status None recorded. Family History Relationship Description Onset Age of this Age Resolved Age Notes LastModified by Organization Details LastModified Time Father Heart disease [email or web address] Not available 05/04 11:04:22 Medical History Condition Response Allergies/Hayfever N Anxiety/Depression N Other N Gout N Thyroid Disease N Heart Conditions N Kidney Stones N Emphysema N Hernia N Migraines N Glaucoma N COPD N Pneumonia N Skin Problems N Immune System Disorder N Anesthesia Complications N Heart Attack (PR) N Mental Illness N Neurological Problems N [...] ICD10 Code Diagnosis IMO Codes Diagnosis Note [id number] PORSCHE MCKENZIE MD [facility]THOPEDI [facility] [address] [place] [address] 12/14/2018 13:15:47 12/14/2018 15:47:19 Flexor tenosynovitis of finger 884108256 M65.842 Left long finger flexor tenosynovi tis X-rays reveal significan t arthritic changes, but no evidence of underlying osteomyeli tis. Tendinitis of flexor tendon of right hand 3117861324 8576602 M77.9 Right FDS/FDP tendinitis at the wrist Trigger finger 035992766 1 47298 M65.331 Right long trigger finger [id number] PORSCHE MCKENZIE MD SURGERY SCHEDULE [address] [place] [address] 12/18/2018 08:04:36 12/18/2018 08:05:44 [id number] ROSS BAJWA PA-C [facility] [address] [place] [address] 12/22/2018 12:38:24 12/22/2018 13:27:46 Postoperative care [id number] Z48.89 Doing well 4 days s/p Left [...] to call office with any questions/ concerns. [id number] ROSS BAJWA PA-C [facility] [address] [place] [address] 12/29/2018 14:14:04 12/29/2018 15:10:11 Postoperative care 876712931 Z48.89 Doing well s/p Left long finger [...] questions/ concerns. Flexor ten osynovitis of finger 836420274 M65.842 Left long finger flexor tenosynovi tis Pre op X-rays reveal significan t arthritic changes, but no evidence of underlying osteomyeli tis. Tendinitis of flexor tendon of right hand 6988945202 3180710 M77.9 Pre-op: Right FDS/FDP tendinitis at the wrist Trigger finger 967951634 1 96768 M65.331 Pre-op: Right long trigger finger [id number] PORSCHE MCKENZIE MD [facility] [address] [place] [address] 01/12/2019 12:38:58 01/12/2019 13:36:49 Postoperative care 565775478 Z48.89 4 weeks s/p Left long finger flexor tenosynove ctomy with left long finger DIP joint debridemen t/synovect carlos (12/18/18) Trigger finger 393132320 1 86189 M65.331 M65.351 Right small trigger finger [id number] DARIEN FORD OTR/L, CHT PHYSICAL THERAPY / HAND THERAPY [facility] [address] [place] [address] 01/31/2019 09:53:31 02/01/2019 08:06:38 Flexor tenosynovitis of finger 821458072 M65.091 [id number] DARIEN FORD OTR/L, CHT PHYSICAL THERAPY / HAND THERAPY [facility] [address] [place] [address] 02/02/2019 10:03:00 02/02/2019 11:51:14 Trigger finger 4367395713 22428 M65.332 with Tenosynove ctomy [id number] RUTH BONDS/L, CHT PHYSICAL THERAPY / HAND THERAPY [facility] [address] [place] [address] 02/05/2019 09:56:16 02/06/2019 08:10:51 Trigger finger 4631816680 78388 M65.332 with Tenosynove ctomy [id number] RUTH BONDS/L, CHT PHYSICAL THERAPY / HAND THERAPY [facility] [address] [place] [address] 02/09/2019 09:52:29 02/09/2019 12:42:59 Trigger finger 4826700675 34713 M65.332 with Tenosynove ctomy [id number] DARIEN FORD OTR/L, CHT PHYSICAL THERAPY / HAND THERAPY [facility] [address] [place] [address] 02/12/2019 09:49:39 02/12/2019 11:52:08 Trigger finger 7615247454 55384 M65.332 with Tenosynove ctomy [id number] DARIEN FORD OTR/L, CHT PHYSICAL THERAPY / HAND THERAPY [facility] [address] [place] [address] 6 02/14/2019 09:43:43 02/14/2019 10:57:32 Trigger finger 2634134970 33557 M65.332 with Tenosynove ctomy [id number] DARIEN FORD OTR/L, CHT PHYSICAL THERAPY / HAND THERAPY [facility] [address] [place] [address] 6 02/19/2019 08:55:39 02/19/2019 10:39:08 Trigger finger 6432378564 82918 M65.332 with Tenosynove ctomy [id number] DARIEN FORD OTR/L, CHT PHYSICAL THERAPY / HAND THERAPY [facility] [address] [place] [address] 6 02/22/2019 11:05:43 02/22/2019 12:32:38 Trigger finger 5732328656 84760 M65.332 with Tenosynove ctomy [id number] PORSCHE MCKENZIE MD [facility]I [facility] [address] [place] [address] 6 02/22/2019 14:27:11 02/22/2019 16:20:37 Postoperative care [id number] Z48.89 10 weeks s/p Left long finger flexor tenosynove ctomy with left long finger DIP joint debridemen t/synovect carlos (12/18/18) Trigger finger 268977237 1 17022 M65.351 M65.311 - Right small trigger finger (CSI: 02/22/19) - Right trigger thumb (CSI: 02/22/19) [id number] DARIEN FORD OTR/L, CHT PHYSICAL THERAPY / HAND THERAPY [facility] [address] [place] [address] 6 02/28/2019 09:08:11 02/28/2019 10:31:59 Trigger finger 5169389923 27237 M65.332 with Tenosynove ctomy [id number] DARIEN FORD, OTR/L, CHT PHYSICAL THERAPY / HAND THERAPY [facility] [address] [place] [address] 03/07/2019 09:05:57 03/07/2019 10:14:55 Trigger finger 8733221783 58384 M65.332 with Tenosynove ctomy [id number] DARIEN FORD, OTR/L, CHT PHYSICAL THERAPY / HAND TH[facility]APY [facility] [address] [place] [address] 03/13/2019 09:14:41 03/13/2019 10:45:15 Trigger finger 0846696983 44388 M65.332 with Tenosynove ctomy [id number] DARIEN FORD, OTR/L, CHT PHYSICAL THERAPY / HAND TH[facility]APY [facility] [address] [place] [address] 03/21/2019 09:02:40 03/21/2019 10:44:38 Trigger finger 4792485121 81398 M65.332 with Tenosynove ctomy [id number] PORSCHE MCKENZIE MD [facility] [address] [place] [address] 04/11/2019 07:56:45 04/11/2019 09:00:53 Postoperative care 798347997 Z48.89 4 months s/p Left long finger flexor tenosynove ctomy with left long finger DIP joint debridemen t/synovect carlos (12/18/18) Trigger finger 555067553 1 35068 M65.351 M65.311 - Right small trigger finger (CSI: 02/22/19) - Right trigger thumb (CSI: 02/22/19) - currently resolved Mass of hand 780501036 R 22.31 Right thumb volar IP joint mass X-rays negative for underlying fracture/d islocation . She does have a sesamoid bone associated with the IP joint. [id number] PORSCHE MCKENZIE MD ORTHOPEDI [address] [place] [address] 04/24/2019 12:45:27 04/24/2019 13:50:12 Postoperative care 615176277 Z48.89 4 months s/p Left long finger flexor tenosynove ctomy with left long finger DIP joint debridemen t/synovect carlos (12/18/18) Trigger finger 421484931 1 88072 M65.351 M65.311 - Right small trigger finger [...] sesamoid bone associated with the IP joint. [id number] PORSCHE MCKENZIE MD SURGERY SCHEDULE [address] [place] [address] 04/30/2019 08:11:18 04/30/2019 08:14:04 [id number] DARIEN FORD, OTR/L, CHT PHYSICAL THERAPY / HAND THERAPY [facility] [address] [place] [address] 05/04/2019 16:38:32 05/07/2019 10:22:07 Trigger finger of right hand 6472363165 9399692 M65.30 small finger and thumb [id number] ROSS BAJWA PA-C [facility] [address] [place] [address] 05/10/2019 10:01:00 05/10/2019 10:57:55 Postoperative care 776037778 Z48.89 Now s/p Right trigger thumb release and tenosynove ctomy; Right small trigger finger release and tenosynove ctomy (DOS: 04/30/19) Previously s/p Left long finger flexor tenosynove ctomy with Left long finger DIP joint debridemen t/synovect carlos (DOS: 12/18/18) Trigger finger 211107987 1 06946 M65.351 M65.311 - Right small trigger finger [...] sesamoid bone associated with the IP joint. [id number] DARIEN FORD OTR/L, CHT PHYSICAL THERAPY / HAND TH[facility]APY [facility] [address] [place] [address] 05/16/2019 08:52:54 05/16/2019 13:13:32 Trigger finger of right hand 0010465791 2418038 M65.30 small finger and thumb [id number] PORSCHE MCKNEZIE MD ORTHOPEDI [address] [place] [address] 05/29/2019 14:25:03 05/29/2019 15:33:51 Postoperative care 079936039 Z48.89 4 weeks s/p Right trigger thumb release and tenosynove ctomy; Right small trigger finger release and tenosynove ctomy (DOS: 04/30/19) Previously s/p Left long finger flexor tenosynove ctomy with Left long finger DIP joint debridemen t/synovect carlos (DOS: 12/18/18) [id number] DARIEN FORD OTR/L, CHT PHYSICAL THERAPY / HAND THERAPY [facility] [address] [place] [address] 05/31/2019 07:53:52 05/31/2019 14:50:44 Trigger finger of right hand 9459142430 0572963 M65.30 small finger and thumb [id number] CHIKI CELESTE MD RHEUMATOL OGY [address] [place] [address] 05/31/2019 10:30:07 06/05/2019 09:00:46 Psoriasis with arthropathy [id number] L40.50 53-year-ol d female with chronic psoriasis [...] should repeat the labs on next visit. [id number] DARIEN FORD, OTR/L, CHT PHYSICAL THERAPY / HAND THERAPY [facility] [address] [place] [address] 06/13/2019 07:54:34 06/13/2019 13:21:52 Trigger finger of right hand 7720314335 6168777 M65.30 small finger and thumb [id number] PORSCHE MCKENZIE MD [facility]I [facility] [address] [place] [address] 06/13/2019 07:55:01 06/13/2019 09:48:23 Postoperative care 969812309 Z48.89 6 weeks s/p Right trigger thumb release and tenosynove ctomy; Right small trigger finger release and tenosynove ctomy (DOS: 04/30/19) Previously s/p Left long finger flexor tenosynove ctomy with Left long finger DIP joint debridemen t/synovect carlos (DOS: 12/18/18) [id number] PORSCHE MCKENZIE MD [facility] [address] [place] [address] 07/19/2019 09:56:21 07/19/2019 11:01:46 Postoperative care [id number] Z48.89 11 weeks s/p Right trigger thumb release and tenosynove ctomy; Right small trigger finger release and tenosynove ctomy (DOS: 04/30/19) Previously s/p Left long finger flexor tenosynove ctomy with Left long finger DIP joint debridemen t/synovect carlos (DOS: 12/18/18) [id number] PORSCHE MCKENZIE MD [facility]I [facility] [address] [place] [address] 08/16/2019 09:24:45 08/16/2019 11:14:10 Postoperative care 768436105 Z48.89 3.5 months s/p Right trigger thumb release and tenosynove ctomy; Right small trigger finger release and tenosynove ctomy (DOS: 04/30/19) Previously s/p Left long finger flexor tenosynove ctomy with Left long finger DIP joint debridemen t/synovect carlos (DOS: 12/18/18) [id number] CHIKI CELESTE MD RHEUMATOL OGY SB [address] [place] [address] 08/27/2019 12:06:17 08/27/2019 13:22:37 Psoriasis with arthropathy 71863622 L40.50 53-year-ol d female with chronic psoriasis [...] as well as HTN. Long-term drug therapy 566808918 Z79.899 obtain the labs. [id number] PORSCHE MCKENZIE MD SURGERY SCHEDULE [address] [place] [address] 09/14/2019 06:36:24 09/14/2019 06:36:44 [id number] DARIEN FORD, OTR/L, CHT PHYSICAL THERAPY / HAND THERAPY [facility] [address] [place] [address] 09/17/2019 12:48:48 09/17/2019 16:31:08 Flexor tenosynovitis of finger M65.842 MF Tenolysis [id number] DARIEN FORD, OTR/L, CHT PHYSICAL THERAPY / HAND THERAPY [facility] [address] [place] [address] 09/19/2019 14:24:06 09/19/2019 15:28:21 Flexor tenosynovitis of finger M65.842 MF Tenolysis [id number] DARIEN FORD, OTR/L, CHT PHYSICAL THERAPY / HAND TH[facility]APY [facility] [address] [place] [address] 09/21/2019 08:20:02 09/21/2019 09:01:43 Flexor tenosynovitis of finger M65.842 MF Tenolysis [id number] DARIEN FORD, OTR/L, CHT PHYSICAL THERAPY / HAND TH[facility]APY [facility] [address] [place] [address] 09/24/2019 08:51:22 09/24/2019 10:59:34 Flexor tenosynovitis of finger M65.842 MF Tenolysis [id number] ROSS BAJWA PA-C [facility] [address] [place] [address] 2019 09:53:54 2019 10:26:08 Postoperative care 228603735 Z48.89 Now s/p Left long finger flexor tenolysis; Left long finger PIP joint contractur e release (DOS: 09/14/19) Previously s/p Right trigger thumb release and tenosynove ctomy; Right small trigger finger release and tenosynove ctomy (DOS: 04/30/19) Previously s/p Left long finger flexor tenosynove ctomy with Left long finger DIP joint debridemen t/synovect carlos (DOS: 12/18/18) [id number] ALEX WILD JR, OTR/L, CHT PHYSICAL THERAPY / HAND THERAPY [facility] [address] [place] [address] 2019 09:54:37 2019 11:19:22 Flexor tenosynovitis of finger M65.842 MF Tenolysis [id number] DARIEN FORD OTR/L, CHT PHYSICAL THERAPY / HAND TH[facility]APY [facility] [address] [place] [address] 10/01/2019 08:49:53 10/01/2019 13:11:19 Flexor tenosynovitis of finger M65.842 MF Tenolysis [id number] RUTH BONDS/L, CHT PHYSICAL THERAPY / HAND [facility]APY [facility] [address] [place] [address] 10/04/2019 10:03:23 10/04/2019 13:17:20 Flexor tenosynovitis of finger M65.842 MF Tenolysis [id number] RUTH BONDS/Zachary, CHT PHYSICAL THERAPY / HAND TH[facility]APY [facility] [address] [place] [address] 10/10/2019 08:46:00 10/10/2019 09:58:18 Flexor tenosynovitis of finger M65.842 MF Tenolysis [id number] RUTH BONDS/Zachary, CHT PHYSICAL THERAPY / HAND TH[facility]APY [facility] [address] [place] [address] 10/12/2019 08:47:07 10/12/2019 10:45:29 Flexor tenosynovitis of finger M65.842 MF Tenolysis [id number] RUTH BONDS/Zachary, CHT PHYSICAL THERAPY / HAND [facility]APY [facility] [address] [place] [address] 6 10/15/2019 08:44:34 10/15/2019 11:16:13 Flexor tenosynovitis of finger M65.842 MF Tenolysis [id number] RUTH BONDS/Zachary, CHT PHYSICAL THERAPY / HAND TH[facility]APY [facility] [address] [place] [address] 6 10/18/2019 08:45:40 10/18/2019 13:42:28 Flexor tenosynovitis of finger M65.842 MF Tenolysis [id number] DARIEN FORD OTR/L, CHT PHYSICAL THERAPY / HAND TH[facility]APY [facility] [address] [place] [address] 10/22/2019 08:41:16 10/22/2019 15:30:54 Flexor tenosynovitis of finger M65.842 MF Tenolysis [id number] RUTH BONDS/Zachary, CHT PHYSICAL THERAPY / HAND [facility]APY [facility] [address] [place] [address] 10/25/2019 08:37:25 10/25/2019 10:09:34 Flexor tenosynovitis of finger M65.842 MF Tenolysis [id number] RUTH BONDS/Zachary, CHT PHYSICAL THERAPY / HAND [facility]APY [facility] [address] [place] [address] 10/29/2019 08:38:05 10/29/2019 10:18:40 Flexor tenosynovitis of finger M65.842 MF Tenolysis [id number] RUTH BONDS/Zachary, CHT PHYSICAL THERAPY / HAND [facility]APY [facility] [address] [place] [address] 11/01/2019 09:13:49 11/01/2019 10:14:51 Flexor tenosynovitis of finger M65.842 MF Tenolysis [id number] PORSCHE MCKENZIE MD [facility] [address] [place] [address] 11/01/2019 09:17:47 11/01/2019 11:06:41 Postoperative care [id number] Z48.89 6 weeks s/p Left long finger flexor tenolysis; Left long finger PIP joint contractur e release (DOS: 09/14/19) Previously s/p Right trigger thumb release and tenosynove ctomy; Right small trigger finger release and tenosynove ctomy (DOS: 04/30/19) Previously s/p Left long finger flexor tenosynove ctomy with Left long finger DIP joint debridemen t/synovect carlos (DOS: 12/18/18) [id number] DARIEN K LOGAN, OTR/L, CHT PHYSICAL THERAPY / HAND THERAPY [facility] CL[facility]ED [address] [address] 11/05/2019 08:46:40 11/05/2019 11:26:20 Flexor tenosynovitis of finger M65.842 MF Tenolysis [id number] DARIEN FORD, OTR/L, CHT PHYSICAL THERAPY / HAND THERAPY [facility] CL[facility] [address] [address] 11/08/2019 08:48:04 11/08/2019 13:23:12 Flexor tenosynovitis of finger M65.842 MF Tenolysis [id number] DARIEN FORD, OTR/L, CHT PHYSICAL THERAPY / HAND THERAPY [facility] [address] [place] [id number] 6 11/12/2019 09:23:42 11/12/2019 14:26:55 Flexor tenosynovitis of finger M65.842 MF Tenolysis [id number] DARIEN FORD, OTR/L, CHT PHYSICAL THERAPY / HAND THERAPY [facility] [address] [address] 11/19/2019 08:52:53 11/19/2019 11:02:07 Flexor tenosynovitis of finger M65.842 MF Tenolysis [id number] DARIEN FORD OTR/L, CHT PHYSICAL THERAPY / HAND THERAPY [facility] [address] [address] 11/26/2019 08:47:59 11/26/2019 13:18:04 Flexor tenosynovitis of finger M65.842 MF Tenolysis [id number] CHIKI CELESTE MD RHEUMATOL [address] [place] [address] 11/26/2019 10:03:21 11/26/2019 10:48:26 Psoriasis with arthropathy [id number] L40.50 53-year-ol d female with chronic psoriasis [...] 09/14/19. She follows labs through dermatolog ist [id number] RUTH BONDS/L, CHT PHYSICAL THERAPY / [facility] [address] [place] [address] 12/03/2019 08:51:40 12/03/2019 09:53:50 Flexor tenosynovitis of finger M65.842 MF Tenolysis [id number] PORSCHE MCKENZIE MD ORTHOPEDI CS [facility] [address] [place] [address] 12/13/2019 09:28:40 12/13/2019 10:27:37 Postoperative care [id number] Z48.89 3 months s/p Left long finger flexor tenolysis; Left long finger PIP joint contractur e release (DOS: 09/14/19) Previously s/p Right trigger thumb release and tenosynove ctomy; Right small trigger finger release and tenosynove ctomy (DOS: 04/30/19) Previously s/p Left long finger flexor tenosynove ctomy with Left long finger DIP joint debridemen t/synovect carlos (DOS: 12/18/18) [id number] RUTH BONDS/L, CHT PHYSICAL THERAPY / [facility] [address] [place] [address] 12/13/2019 09:29:06 12/13/2019 11:11:51 Flexor tenosynovitis of finger M65.842 MF Tenolysis [id number] CHIKI CELESTE MD RHEUMATOL [address] [address] [place] [address] 05/23/2020 13:31:12 05/23/2020 14:07:49 Psoriasis with arthropathy [id number] L40.50 53-year-ol d female with chronic psoriasis [...] labs through dermatolog ist Long-term drug therapy 703856310 Z79.899 obtain the labs. [id number] PORSCHE MCKENZIE MD ORTHOPEDI CS [facility] [address] [place] [address] 10/24/2020 13:57:10 10/24/2020 15:36:33 Postoperative care 983326031 Z48.89 Previously s/p Left long finger flexor tenolysis; Left long finger PIP joint contractur e release (DOS: 09/14/19) Previously s/p Right trigger thumb release and tenosynove ctomy; Right small trigger finger release and tenosynove ctomy (DOS: 04/30/19) Previously s/p Left long finger flexor tenosynove ctomy with Left long finger DIP joint debridemen t/synovect carlos (DOS: 12/18/18) Arthritis of hand 244814 005 M13.842 X-rays of the left thumb reveal moderate underlying IP joint arthritis. No evidence of bone osteomyeli tis. [id number] WENCESLAO TITUS MD ORTHOPEDI CS [facility] [address] [address] 10/27/2020 09:01:26 10/27/2020 10:16:18 Pain of left shoulder joint [id number] M25.562 [id number] CHIKI CELESTE [facility] [address] [place] [address] 11/14/2020 08:38:36 11/14/2020 08:57:29 Psoriasis with arthropathy 20554882 L40.50 55-year-ol d female with chronic psoriasis [...] me in 3 months Long-term drug therapy 453124508 Z79.899 obtain the labs to follow-up on the current medication s. Follow-up with me in 3 months [id number] WENCESLAO TITUS MD ORTHOPEDI CS [facility] [address] [place] [address] 12/15/2020 10:39:15 12/15/2020 11:30:24 Pain of left shoulder joint [id number] M25.867 [id number] CHIKI CELESTE MD [place]UMATOL [place] [address] [place] [address] 02/10/2021 09:21:45 02/10/2021 11:20:00 Psoriasis with arthropathy 59400151 L40.50 55-year-ol d female with chronic psoriasis [...] me in 3 months Long-term drug therapy 175797707 Z79.899 obtain the labs to follow-up on the current medication s. Follow-up with me in 3 months Malaise and fatigue 2717 [address] R53.81 R53.83 chronic and multifacto rial. Suggest hepatitis panel. Weight loss encouraged . Good diabetes control and encouraged . [id number] CHIKI CELESTE MD RHEUMATOL OGY [address] [place] [address] 03/13/2021 09:53:12 03/13/2021 16:08:59 Psoriasis with arthropathy 36359008 L40.50 55-year-ol d female with chronic psoriasis [...] me in 3 months Long-term drug therapy 070398733 Z79.899 obtain the labs to follow-up on the Anti-TNF therapy every 3 months. TB test every 12 months. [id number] CHIKI CELESTE MD RHEUMATOL [facility] [address] [place] [address] 04/15/2021 08:51:33 04/15/2021 11:54:57 Psoriasis with arthropathy 38837172 L40.50 55-year-ol d female with chronic psoriasis [...] with me as planned Long-term drug therapy 837454368 Z79.899 lab studies reviewed, January 2021. Repeat in May. [id number] CHIKI CELESTE MD RHEUMATOL [facility] [address] [place] [address] 05/12/2021 10:14:40 05/12/2021 11:21:51 Psoriasis with arthropathy 04683375 L40.50 55-year-ol d female with chronic psoriasis [...] with me as planned Long-term drug therapy 979629203 Z79.899 lab studies reviewed, January 2021. repeat TB test January 2022.Negat demi hepatitis panel January 2021. Normal CBC. Repeat labs on next visit. [id number] CHIKI CELESTE MD [facility] [address] [place] [address] 08/10/2021 09:16:12 08/10/2021 10:09:31 Psoriasis with arthropathy 01300059 L40.50 55-year-ol d female with chronic psoriasis [...] planned in 6 months Long-term drug therapy 899245470 Z79.899 lab studies reviewed, January 2021. repeat TB test January 2022.Negat demi hepatitis panel January 2021. Normal CBC. Repeat labs today. [id number] CHIKI CELESTE MD RHEUMATOL OGY [address] [address] 11/09/2021 09:55:01 11/09/2021 16:48:33 Psoriasis with arthropathy 48745251 L40.50 56-year-ol d female with chronic psoriasis [...] planned in January 2022 Long-term drug therapy 346155040 Z79.899 lab studies reviewed, January 2021. repeat TB test January 2022.Negat demi hepatitis panel January 2021. Normal CBC. Lab studies August 2021 stable. [id number] CHIKI CELESTE MD RHEUMATOL [facility] [place] [address] 02/03/2022 08:59:49 02/03/2022 10:12:49 Psoriasis with arthropathy 75696082 L40.50 56-year-ol d female with chronic psoriasis [...] months Long-term current use of immunosuppressive drug 528654863 Z79.899 Follow-up labs. [id number] CHIKI CELESTE MD RHEUMATOL [place] [address] 1 07/21/2022 12:34:48 07/22/2022 13:06:45 Psoriatic arthritis 646093550 L40.50 [id number] CHIKI CELESTE MD [facility]ATOL [facility] [address] [place] [address] 1 08/04/2022 08:54:27 08/04/2022 11:43:17 Psoriatic arthritis 255504000 L40.50 [id number] CHIKI CELESTE MD [facility]UMATOL [facility] [address] [place] [address] 1 08/06/2022 08:48:37 08/09/2022 14:29:10 Psoriasis with arthropathy 45793974 L40.50 56-year-ol d female with chronic psoriasis [...] months Long-term current use of immunosuppressive drug 544568265 Z79.899 Labs July 05 2022.CMP.M odest elevation in liver enzymes.TB test 02/04/2020 2 repeat in 02/03/2023Ob tain routine Follow-up labs. [id number] [place] [address] [place] [address] 08/30/2022 12:12:46 08/30/2022 14:56:37 Psoriatic arthritis 285734337 L40.50 [id number] [place] [address] [place] [address] 11/01/2022 08:33:32 11/01/2022 11:34:22 Psoriatic arthritis 112235640 L40.50 [id number] [place] [address] [place] [address] 11/05/2022 11:24:59 11/06/2022 04:04:27 Psoriasis with arthropathy 98090668 L40.50 57-year-ol d female with chronic psoriasis [...] months Long-term current use of immunosuppressive drug 936053709 Z79.899 Labs July 05 2022.CMP.M odest elevation in liver enzymes. Obtain routine Follow-up labs. Tuberculos is screening 482337191 Z11.7 The tubercular screening is up-to-date . Last TB test was in January 2022. Repeat in January 2023. [id number] CHIKI ARMEN CELESTE MD RHEUMATOL [facility] [address] [place] [address] 12/27/2022 08:32:45 12/27/2022 13:49:47 Psoriatic arthritis 938711330 L40.59 [id number] PORSCHE MCKENZIE MD ORTHOPEDI CS [facility] [address] [place] [address] 01/18/2023 09:00:46 01/18/2023 12:09:08 Arthritis of hand 902164429 M13.842 X-rays of the left thumb reveal severe IP joint arthritis Postoperative care 70694 8941 Z48.89 Previously s/p Left long finger flexor tenolysis; Left long finger PIP joint contractur e release (DOS: 09/14/19) Previously s/p Right trigger thumb release and tenosynove ctomy; Right small trigger finger release and tenosynove ctomy (DOS: 04/30/19) Previously s/p Left long finger flexor tenosynove ctomy with Left long finger DIP joint debridemen t/synovect carlos (DOS: 12/18/18) [id number] PORSCHE MCKENZIE MD SURGERY SCHEDULE [address] [place] [address] 01/24/2023 10:21:26 01/24/2023 10:22:15 [id number] ROSS BAJWA PA-C ORTHOPEDI CS [facility] [address] [place] [address] 02/08/2023 08:25:17 02/08/2023 10:23:47 Postoperative care 701194385 Z48.89 s/p Left thumb interphala ngeal joint [...] DIP joint debridemen t/synovect carlos (DOS: 12/18/18) [id number] DARIEN FORD, OTR/L, CHT PHYSICAL THERAPY / HAND TH[facility]AP[facility] [address] [place] [address] 02/08/2023 08:26:50 02/09/2023 04:31:57 Arthritis of hand 785720562 M13.842 IP Thumb arthrodesi s [id number] CHIKI ARMEN CELESTE MD RHEUMATOL [facility] [address] [place] [address] 02/08/2023 12:47:42 02/09/2023 04:40:56 Psoriasis with arthropathy 52091958 L40.50 57-year-ol d female with chronic psoriasis [...] contractur e release , 09/14/19. follow-up with oh 3 months Long-term current use of immunosuppressive drug 512263725 Z79.899 Lab studies December 27, 2022 reviewed stable.AST 37 ALT normal. Tuberculos is screening 760112505 Z11.7 The tubercular screening is up-to-date . Last TB test was in December 2022 negative. Repeat in December 2023 [id number] CHIKI CELESTE MD RHEUMATOL [facility] [address] [place] [address] 02/21/2023 08:57:06 02/21/2023 12:46:30 Psoriatic arthritis 282902892 L40.59 [id number] PORSCHE MCKENZIE MD ORTHOPEDI CS [facility] [address] [place] [address] 03/08/2023 08:49:09 03/08/2023 10:32:58 Postoperative care 582063920 Z48.89 6 weeks s/p Left thumb interphala [...] t/synovect carlos (DOS: 12/18/18) Arthritis of hand 113442 005 M13.842 M13.841 Swelling o f finger joint 975249877 M79.89 [id number] PORSCHE MCKENZIE MD SURGERY SCHEDULE [address] [place] [address] 03/09/2023 11:26:14 03/09/2023 11:27:24 [id number] ROSS BAJWA PA-C [facility]TH[facility]I [facility] [address] [place] [address] 03/15/2023 08:33:02 03/15/2023 08:47:26 Postoperative care 343939065 Z48.89 s/p Right index finger DIP joint [...] DIP joint debridemen t/synovect carlos (DOS: 12/18/18) [id number] CHIKI CELESTE MD R[facility]OL [facility] [address] [place] [address] 03/16/2023 08:33:11 03/17/2023 04:08:13 Psoriasis with arthropathy 89167132 L40.50 57-year-ol d female with chronic psoriasis and psoriatic arthritis. Mariaunat marguerite watson Currently on Remicade infusion therapy [...] months Long-term current use of immunosuppressive drug 890951638 Z79.899 Lab studies December 27, 2022 reviewed stable.AST 37 ALT normal. Tuberculos is screening 747068040 Z11.7 The tubercular screening is up-to-date . Last TB test was in December 2022 negative. Repeat in December 2023 Synovitis of joint of left knee 9890836306 8649143 M65.862 Symptomati c left knee with synovitis and effusion secondary to psoriatic arthritis. On account of osteomyeli tis we decided not to give her any steroids. Discontinu e meloxicam trial of ibuprofen twice a day Chronic la rge plaque psoriasis 238336011 L40.0 Worsening plaque psoriasis especially the scalp. Trial of betamethas one topical cream. [id number] ROSS BAJWA PA-C [facility] [address] [place] [address] 03/29/2023 08:32:54 03/29/2023 08:51:26 Postoperative care 831830543 Z48.89 s/p Right index finger DIP joint [...] DIP joint debridemen t/synovect carlos (DOS: 12/18/18) [id number] PORSCHE MCKENZIE MD ORTHOPEDI CS [facility] [address] [place] [address] 04/14/2023 08:36:25 04/14/2023 09:20:46 Postoperative care 288862745 Z48.89 5 weeks s/p Right index finger [...] DIP joint debridemen t/synovect carlos (DOS: 12/18/18) [id number] CHIKI CELESTE MD [facility] [address] [place] [address] 05/09/2023 07:40:29 05/10/2023 04:34:03 Psoriasis with arthropathy 41987307 L40.50 57-year-ol d female with chronic psoriasis [...] months. Long-term current use of immunosuppressive drug 657903190 Z79.899 Lab studies December 27, 2022 reviewed stable.AST 37 ALT normal. Repeat labs today Tuberculos is screening 511691875 Z11.7 The tubercular screening is up-to-date . Last TB test was in December 2022 negative. Repeat in December 2023 Synovitis of joint of left knee 3280438325 0558970 M65.862 Chronic and fairly stable.No indication to repeat the steroid injection. Follow clinically . Chronic la rge plaque psoriasis 531125394 L40.0 Plaque psoriasis, fairly stable at this time. On Xeljanz XR.Maintai n betamethas one topical cream. [id number] PORSCHE MCKENZIE MD ORTHOPEDI CS [facility] [address] [place] [address] 05/24/2023 08:37:02 05/24/2023 09:55:11 Postoperative care 883262424 Z48.89 9 weeks s/p Right index finger [...] DIP joint debridemen t/synovect carlos (DOS: 12/18/18) [id number] CHIKI CELESTE MD [facility]OL [facility] [address] [place] [address] 06/29/2023 08:13:50 07/01/2023 05:10:01 Psoriasis with arthropathy 96006148 L40.50 57-year-ol d female with chronic psoriasis [...] months. Long-term current use of immunosuppressive drug 166804169 Z79.899 Lab studies December 27, 2022 reviewed stable.AST 37 ALT normal.Rep eat labs May 09, reviewed and stable Tuberculos is screening 862746588 Z11.7 The tubercular screening is up-to-date . Last TB test was in December 2022 negative. Repeat in December 2023 Chronic la rge plaque psoriasis 452663189 L40.0 Plaque psoriasis, fairly stable at this time. On Xeljanz XR.Maintai n betamethas one topical cream. [id number] CHIKI CELESTE MD [facility]OL [facility] [address] [place] [address] 09/13/2023 08:31:51 09/14/2023 04:19:47 Psoriasis with arthropathy 22270200 L40.50 57-year-ol d female with chronic psoriasis [...] 2024. Long-term current use of immunosuppressive drug 531899037 Z79.899 Lab studies December 27, 2022 reviewed stable.AST 37 ALT normal.Lab s May 09, reviewed and stable Repeat today. Tuberculos is screening 535288803 Z11.7 The tubercular screening is up-to-date . Last TB test was in December 2022 negative. Repeat in December 2023 Chronic la rge plaque psoriasis 606151034 L40.0 Plaque psoriasis, fairly stable at this time. On Xeljanz XR. Psoriasis of scalp 82957 8008 L40.9 Chronic but fairly stable controlled on the current clobetasol solution. Prescripti on sent for clobetasol scalp solution BID. [id number] CHIKI CELESTE MD [facility]OL [facility] [address] [place] [address] 12/15/2023 10:24:24 12/16/2023 05:10:18 Psoriasis with arthropathy 86613217 L40.50 58-year-ol d female with chronic psoriasis [...] months Long-term current use of immunosuppressive drug 739033376 Z79.899 September studies are normal. Tuberculos is screening 208918363 Z11.7 The tubercular screening is up-to-date . Last TB test was in December 2022 negative. Repeat today. Chronic la rge plaque psoriasis 603066350 L40.0 Plaque psoriasis, unfortunat marguerite symptomati c. Not able to continue Xeljanz primarily due to the cost. Followed by dermatolog y currently looking at possible Cosentyx treatment. Psoriasis of scalp 71305 8008 L40.9 On topical agents. Once On the Cosentyx, it would help the arthritis as well as the psoriasis. She will continue with the topical agents clobetasol [id number] CHIKI CELESTE MD RHEUMATOL OGY [address] [place] [address] 04/16/2024 08:58:36 04/17/2024 04:07:09 Psoriasis with arthropathy 51060490 L40.50 58-year-ol d female with chronic psoriasis [...] months Long-term current use of immunosuppressive drug 645813640 Z79.899 04/03/24 labscbc normalnorm al cmpnormal crp Repeat on next visit Tuberculos is screening 885409196 Z11.7 The tubercular screening is up-to-date . Last TB test was in December 2019 4 repeat in December 2024 Chronic la rge plaque psoriasis 555534701 L40.0 Plaque psoriasis, once again very stable on the current combo. She will continue with the Cosentyx 300 mg subcutaneo us every 4 weeks and methotrexa te 10 mg q. weekly. Will do the labs every 12 weeks Psoriasis of scalp 21403 8008 L40.9 Clinically stable and without any active lesion. Continue with the combinatio n of Cosentyx and the methotrexa te. [id number] CHIKI CELESTE MD RHE[facility]OL [facility] [address] [place] [address] 07/06/2024 08:29:39 07/07/2024 04:04:43 Psoriasis with arthropathy 29359161 L40.50 58-year-ol d female with chronic psoriasis [...] given Long-term current use of immunosuppressive drug 323707121 Z79.899 Recent labsVit D 27 nanograms per mL low. I would suggest to take vitamin D3 5000 internatio nal units dailyCBC normalElec trolytes normalKidn ey normal 124gfrCalc ium normalLive r normalLast A1C was 7.5%. Tuberculos is screening 243264961 Z11.7 The tubercular screening is up-to-date . Last TB was 12/15/23. Repeat in 2024. Chronic la rge plaque psoriasis 084138819 L40.0 Plaque psoriasis, once again very stable on the current combo. She will continue with the Cosentyx 300 mg subcutaneo us every 4 weeks and methotrexa te 10 mg q. weekly. Will do the labs every 12 weeks [id number] CHIKI CELESTE MD RHEUM[facility]OL O[facility] [address] [place] [address] 01/15/2025 13:17:15 01/16/2025 05:14:18 Psoriasis with arthropathy 83023177 L40.50 59-year-ol d female with chronic psoriasis [...] months. Long-term current use of immunosuppressive drug 931765384 Z79.899 Patient brought the labs done locally: Dated 12/30/24 labsOveral l stable labs. Modest anemia, 12g hemoglobin 36% hematocrit . Normal WBC.Normal creatinine , GFR greater than 100 mL/min. Recently elevated blood sugar 160mg , AST 62 ALT 42.Triglyc erides elevatedTh yroid normal, Vit D 44Negative TB Tuberculos is screening 564728048 Z11.7 The tubercular screening is up-to-date . Negative screening 12/15/2023. Repeat screening December 2024 reviewed from patient records. Repeat in December 2025. Chronic la rge plaque psoriasis 058624319 L40.0 Plaque psoriasis, once again very stable [...] ASSIGNED (MEDICARE DME REGION B) Alethea Alanis [id number] Alethea Alanis 12/09/2019 PAYMENT PLAN Alethea Alanis 12/07/2019 1 [place] [id number] Alethea Alanis [id number] Alethea Alanis 01/12/2025 2 [place] [id number] Alethea Alanis [id number] Alethea Alanis 05/19/2021 2 [place] [id number] Alethea Alanis [id number] Alethea Alanis 01/12/2025 1 [place] Alethea Alanis [id number] Alethae Alanis Notes Date Note Type Note Provider Name and Address Organization Details Recorded Time 09/13/2023 text/html ROS as noted in the [facility] 57-year-old female seen today as [...] Humira, methotrexate, hydroxychloroquine, Otezla. CHIKI CELESTE MD [address] [place] [address], [phone], [facility] 09/13/2023 13:06:40 12/15/2023 text/html ROS as noted in the [facility] 58-year-old female seen today as a follow-up on psoriatic arthritis.She was last seen here in our rheumatology department on 09/13/2023 Unfortunately because of the cost, not able to continue with the Xeljanz. 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 As mentioned before she was not able to tolerate the Remicade infusion primarily because of the rash. She did well from the arthritis point of view on the Xeljanz but the skin has not improved. As mentioned before, has failed Enbrel, Humira, methotrexate, hydroxychloroquine, Otezla. CHIKI CELESTE MD [address] [place] [address], [phone], [facility] 12/15/2023 13:37:30 04/16/2024 text/html ROS as noted in the [facility] 58-year-old female seen today as [...] Humira, methotrexate, hydroxychloroquine, Otezla. CHIKI CELESTE MD [address] [place] [address] [place], [address], [facility] 04/16/2024 09:52:33 07/06/2024 text/html ROS as noted in the [facility] 58-year-old female seen today as a follow-up on psoriatic arthritis.She was last seen here in our rheumatology department on 04/16/24.. She is coming along quite well. On the combination of Cosentyx 300 mg every 4 weeks along with methotrexate 10mg. No new complaints. Tolerating it well. As mentioned before, has failed Enbrel, Humira, methotrexate, hydroxychloroquine, Otezla, Remicade. CHIKI CELESTE MD [facility] [place], [address], [facility] 07/06/2024 08:55:14 01/15/2025 text/html ROS as noted in the HPI 59-year-old female seen today as a follow-up on psoriatic arthritis.She was last seen here in our rheumatology department on 07/06/24. She is coming along quite well. On the combination of Cosentyx 300 mg every 4 weeks along with methotrexate 10mg q weekly. No new complaints. CHIKI CELESTE MD [facility] [place], [address], [facility] 01/15/2025 14:36:33 OBGyn Episode No OBEpisode recorded.
--- OUTSIDE RECORDS SUMMARY | 2025-08-07 07:59 | XMS_ITS | Data Portability ---
Author Organization [facility] Address [address] [place] [address] Assessment No assessment recorded. Plan of Treatment Reminders Order Date Submit Date Provider Last Modified By Organization Details Last Modified Time Details Appointments None recorded. Lab unlisted lab - toxassure flex 19, [id number] 2024 025 [facility], [address] [place] [address], [address], 5 15:35:07 HbA1c (hemoglobin A1c), blood [address], [facility] [place], [address], 5 10:23:58 microalbumi n/creatinin e, mass ratio, urine [address], [address] [place], [address], 5 10:23:58 unlisted lab - toxassure flex 19, [id number] 2024 025 [facility]), [facility] [place], [address], 5 21:08:06 Referral None recorded. Procedures None recorded. Surgeries None recorded. Imaging None recorded. Medication Orders Ozempic 1 mg/dose (4 mg/3 mL) subcutaneou s pen injector 2024 025 [facility] #[id number], [address] [place], [address], 5 10:02:49 Ozempic 1 mg/dose (4 mg/3 mL) subcutaneou s pen injector 2024 025 [facility] #[id number], [address] [place], [address], 5 08:15:33 Ozempic 0.25 mg or 0.5 mg (2 mg/3 mL) subcutaneou s pen injector [address]/Pharmacy #[id number], [address] [place], [address], 5 08:04:48 Adipex-P 37.5 mg tablet 2024 025 [facility] #[id number], [address] [place], [address], 5 08:19:04 Patient TargetsNo targets recorded. Patient Instructions Encounter Date Encounter Id Patient Instructions Last Modified By Organization Details Last Modified Time 01/21/2025 [id number] learning about type 2 diabetes [email or web address] Not available 01/21/2025 10:23:58 type 2 diabetes: care instructions [email or web address] Not available 01/21/2025 10:23:58 high cholesterol : care instructions [email or web address] Not available 01/22/2025 13:25:10 high blood pressure: care instructions Not available 01/22/2025 13:25:10 learning about high blood pressure Not available 01/22/2025 13:25:10 Rheumatoid Arthritis (RA): Care Instructions [email or web address] Not available 01/22/2025 13:25:10 body mass index: care instructions [id number] Not available 01/21/2025 10:23:42 learning about healthy weight [email or web address] Not available 01/21/2025 10:23:42 02/18/2025 [id number] learning about type 2 diabetes [email or web address] Not available 02/18/2025 08:30:29 type 2 diabetes: care instructions [id number] Not available 02/18/2025 08:30:29 high blood pressure: care instructions [email or web address] Not available 02/18/2025 08:30:29 learning about high blood pressure [email or web address] Not available 02/18/2025 08:30:29 high cholesterol : care instructions [id number] Not available 02/18/2025 08:30:29 Rheumatoid Arthritis (RA): Care Instructions [email or web address] Not available 02/18/2025 08:30:29 03/18/2025 [id number] learning about type 2 diabetes [id number] Not available 03/18/2025 11:47:41 type 2 diabetes: care instructions [email or web address] Not available 03/18/2025 11:47:41 04/15/2025 [id number] learning about type 2 diabetes [email or web address] Not available 04/15/2025 08:15:32 type 2 diabetes: care instructions [id number] Not available 04/15/2025 08:15:32 Reason for Referral [...] mahad consu ltati on, pleas e call [phone]. ===== ===== ===== ===== ===== ===== ===== ===== ===== ===== ===== ===== ===== === Not Available [facility] ([facility]) [address] [place], [address], 01/23/2025 21:08:06 01/22/20 25 01/23/2025 TOXAS SURE FLEX 19, UR pdf . Not Available [facility] ([facility]) [address] [place], [address], 01/23/2025 21:08:06 01/22/20 25 01/23/2025 TOXAS SURE FLEX 19, UR creatinine 63 mg/dL REFER ENCE RANGE : Ref Range >=20 Not Available [facility] ([facility]) [address] [place], [address], 01/23/2025 21:08:06 01/22/20 25 01/23/2025 TOXAS SURE FLEX 19, UR amphetamines ia Negati ve NG/mL cutoff :300 Not Available [facility] ([facility]) [address] [place], [address], 01/23/2025 21:08:06 01/22/20 25 01/23/2025 TOXAS SURE FLEX 19, UR benzodiazepi florencia Negati ve Not Available [facility] ([facility]) [address] [place], [address], 01/23/2025 21:08:06 01/22/20 25 01/23/2025 TOXAS SURE FLEX 19, UR diazepam Not Detect ed NG/mg _crea t Not Available [facility] ([facility]) [address] [place], [address], 01/23/2025 21:08:06 01/22/20 25 01/23/2025 TOXAS SURE FLEX 19, UR desmethyldia zepam Not Detect ed NG/mg _crea t Not Available [facility] ([facility]) [address] [place], [address], 01/23/2025 21:08:06 01/22/20 25 01/23/2025 TOXAS SURE FLEX 19, UR oxazepam Not Detect ed NG/mg _crea t Not Available [facility] ([facility]) [address] [place], [address], 01/23/2025 21:08:06 01/22/20 25 01/23/2025 TOXAS SURE [...] mercy Oxaze mercy: None Not Available [facility] ([facility]) [address] [place], [address], 01/23/2025 21:08:06 01/22/20 25 01/23/2025 TOXAS SURE FLEX 19, UR alprazolam Not Detect ed NG/mg _crea t Not Available [facility] ([facility]) [address] [place], [address], 01/23/2025 21:08:06 01/22/20 25 01/23/2025 TOXAS SURE FLEX 19, UR alpha-hydrox yalprazolam Not Detect ed NG/mg _crea t Not Available [facility] ([facility]) [address] [place], [address], 01/23/2025 21:08:06 01/22/20 25 01/23/2025 TOXAS SURE FLEX 19, UR desalkylflur azepam Not Detect ed NG/mg _crea t Not Available [facility] ([facility]) [address] [place], [address], 01/23/2025 21:08:06 01/22/20 25 01/23/2025 TOXAS SURE FLEX 19, UR lorazepam Not Detect ed NG/mg _crea t Not Available [facility] ([facility]) [address] [place], [address], 01/23/2025 21:08:06 01/22/20 25 01/23/2025 TOXAS SURE FLEX 19, UR alpha-hydrox ytriazolam Not Detect ed NG/mg _crea t Not Available [facility] ([facility]) [address] [place], [address], 01/23/2025 21:08:06 01/22/20 25 01/23/2025 TOXAS SURE FLEX 19, UR clonazepam Not Detect ed NG/mg _crea t Not Available [facility] ([facility]) [address] [place], [address], 01/23/2025 21:08:06 01/22/20 25 01/23/2025 TOXAS SURE FLEX 19, UR 7-aminoclona zepam Not Detect ed NG/mg _crea t Not Available [facility] ([facility]) [address] [place], [address], 01/23/2025 21:08:06 01/22/20 25 01/23/2025 TOXAS SURE FLEX 19, UR midazolam Not Detect ed NG/mg _crea t Not Available [facility] ([facility]) [address] [place], [address], 01/23/2025 21:08:06 01/22/20 25 01/23/2025 TOXAS SURE FLEX 19, UR alpha-hydrox ymidazolam Not Detect ed NG/mg _crea t Not Available [facility] ([facility]) [address] [place], [address], 01/23/2025 21:08:06 01/22/20 25 01/23/2025 TOXAS SURE FLEX 19, UR flunitrazepa m Not Detect ed NG/mg _crea t Not Available [facility] ([facility]) [address] [place], [address], 01/23/2025 21:08:06 01/22/20 25 01/23/2025 TOXAS SURE FLEX 19, UR desmethylflu nitrazepam Not Detect ed NG/mg _crea t Not Available [facility] ([facility]) [address] [place], [address], 01/23/2025 21:08:06 01/22/20 25 01/23/2025 TOXAS SURE FLEX 19, UR cocaine metabolite ia Negati ve NG/mL cutoff :150 Not Available [facility] ([facility]) [address] [place], [address], 01/23/2025 21:08:06 01/22/20 25 01/23/2025 TOXAS SURE FLEX 19, UR ethanol biomarkers ia Negati ve NG/mL cutoff :500 Not Available [facility] ([facility]) [address] [place], [address], 01/23/2025 21:08:06 01/22/20 25 01/23/2025 TOXAS SURE FLEX 19, UR cannabinoids ia Negati ve NG/mL cutoff :20 Not Available [facility] ([facility]) [address] [place], [address], 01/23/2025 21:08:06 01/22/20 25 01/23/2025 TOXAS SURE FLEX 19, UR 6-acetylmorp manav ia Negati ve NG/mL cutoff :10 Not Available [facility] ([facility]) [address] [place], [address], 01/23/2025 21:08:06 01/22/20 25 01/23/2025 TOXAS SURE FLEX 19, UR opiate class ia Negati ve NG/mL cutoff :100 Not Available [facility] ([facility]) [address] [place], [address], 01/23/2025 21:08:06 01/22/20 25 01/23/2025 TOXAS SURE FLEX 19, UR oxycodone class ia Negati ve NG/mL cutoff :100 Not Available [facility] ([facility]) [address] [place], [address], 01/23/2025 21:08:06 01/22/20 25 01/23/2025 TOXAS SURE FLEX 19, UR methadone ia Negati ve NG/mL cutoff :100 Not Available [facility] ([facility]) [address] [place], [address], 01/23/2025 21:08:06 01/22/20 25 01/23/2025 TOXAS SURE FLEX 19, UR methadone mtb ia Negati ve NG/mL cutoff :100 Not Available [facility] ([facility]) [address] [place], [address], 01/23/2025 21:08:06 01/22/20 25 01/23/2025 TOXAS SURE FLEX 19, UR buprenorphin e ia Negati ve NG/mL cutoff :5.0 Not Available [facility] ([facility]) [address] [place], [address], 01/23/2025 21:08:06 01/22/20 25 01/23/2025 TOXAS SURE FLEX 19, UR fentanyl ia Negati ve NG/mL cutoff :2.0 Not Available [facility] ([facility]) [address] [place], [address], 01/23/2025 21:08:06 01/22/20 25 01/23/2025 TOXAS SURE FLEX 19, UR tapentadol ia Negati ve NG/mL cutoff :200 Not Available [facility] ([facility]) [address] [place], [address], 01/23/2025 21:08:06 01/22/20 25 01/23/2025 TOXAS SURE FLEX 19, UR propoxyphene ia Negati ve NG/mL cutoff :300 Not Available [facility] ([facility]) [address] [place], [address], 01/23/2025 21:08:06 01/22/20 25 01/23/2025 TOXAS SURE FLEX 19, UR tramadol ia Negati ve NG/mL cutoff :200 Not Available [facility] ([facility]) [address] [place], [address], 01/23/2025 21:08:06 01/22/20 25 01/23/2025 TOXAS SURE FLEX 19, UR methylphenid ate ia Negati ve NG/mL cutoff :100 Not Available [facility] ([facility]) [address] [place], [address], 01/23/2025 21:08:06 01/22/20 25 01/23/2025 TOXAS SURE FLEX 19, UR barbiturates ia Negati ve NG/mL cutoff :200 Not Available [facility] ([facility]) [address] [place], [address], 01/23/2025 21:08:06 01/22/20 25 01/23/2025 TOXAS SURE FLEX 19, UR phencyclidin e ia Negati ve NG/mL cutoff :25 Not Available [facility] ([facility]) [address] [place], [address], 01/23/2025 21:08:06 01/22/20 25 01/23/2025 TOXAS SURE FLEX 19, UR gabapentin ia Negati ve ug/mL cutoff :1.0 Not Available [facility] ([facility]) [address] [place], [address], 01/23/2025 21:08:06 01/22/20 25 01/23/2025 TOXAS SURE FLEX 19, UR anticonvulsa nts Negati ve Not Available [facility] ([facility]) [address] [place], [address], 01/23/2025 21:08:06 01/22/20 25 01/23/2025 TOXAS SURE FLEX 19, UR pregabalin Not Detect ed Not Available [facility] ([facility]) [address] [place], [address], 01/23/2025 21:08:06 01/22/20 25 01/23/2025 TOXAS SURE FLEX 19, UR carisoprodol ia Negati ve NG/mL cutoff :100 Not Available [facility] ([facility]) [address] [place], [address], 01/23/2025 21:08:06 01/22/20 25 01/21/2025 micro album in/cr eatin ine, mass ratio , urine Microalbumin 30 mg/L Not Available [facility] [address] [place] [address], [address], 01/21/2025 10:11:25 01/22/20 25 01/21/2025 micro album in/cr eatin ine, mass ratio , urine Creatinine 100 mg/dL Not Available [facility] [address] [place] [address], [address], 01/21/2025 10:11:25 01/22/20 25 01/21/2025 micro album in/cr eatin ine, mass ratio , urine Ratio 30-300 mg/g Not Available [facility] [address] [place] [address], [address], 01/21/2025 10:11:25 01/22/20 25 01/21/2025 HbA1c (hemo globi n A1c), blood HbA1c 8.0 % Not Available [facility] [address] [place] [address], [address], 01/21/2025 10:11:18 Result Notes None recorded. Problems Name Problem SNOMED Code Status Onset Date Resolution Date Notes Provider Name and Address Organization Details Recorded Time Hyperlipidemia 21301442 Active 2024 JACKIE Pierre [address] [place] [address], [address], [employer] 5 11:47:24 Essential hypertension 03378997 Active 2024 JACKIE Pierre [address] [place] [address], [address], [employer] 5 11:47:20 Rheumatoid arthritis 06199736 Active 2024 JACKIE Pierre [address] [place] [address], [address], [employer] 11:47:26 Type 2 diabetes mellitus 87820106 Active 2024 JACKIE Pierre [address] [place] [address], [address], [employer] 11:47:22 Problem Notes None recorded. Procedures Surgical History Date Name Laterality Status Provider Name and Address Organization Details Recorded Time [facility]/2025 09:59:41 Gallbladder Surgery completed [employer] [facility] 01/21/2025 09:59:41 Total Hysterectomy completed [employer] [facility] 01/21/2025 09:59:41 Imaging Results None recorded. Procedure Notes None recorded. Medical Equipment None Reported. Allergies Allergen ID Allergen Name Allergen Category Reaction Reaction Severity Criticality Documentation Date Start Date Code Code System Note Provider Name and Address Organization Details Recorded Time 59791 povidone- iodine medicatio n Not available Not available Not available 02/18/2025 8611 RxNorm [facility], [employer] 08:02:46 Medications Name Sig Start Date [...] Address Organization Details Last Updated DateTime 5 03512.3 4 g 37.9 kg/m2 157.48 cm 97 % 97 % 82 /min 98 [degF] 140/82 mm[Hg] 146/84 mm[Hg] 138/84 mm[Hg] [employer] 5 16:37:36 Date Recorded Body height Body mass index (BMI) Body weight Oxygen saturation Oxygen saturation in Arterial blood by Pulse oximetry Heart rate Body temperature Systolic And Diastolic Systolic And Diastolic Provider Name and Address Organization Details Last Updated DateTime 5 157.48 cm 36 kg/m2 87425.2 6 g 98 % 98 % 86 /min 97.7 [degF] 144/84 mm[Hg] 144/86 mm[Hg] [employer] 5 08:01:57 Date Recorded Body height Body mass index (BMI) Body weight Oxygen saturation Oxygen saturation in Arterial blood by Pulse oximetry Heart rate Body temperature Systolic And Diastolic Provider Name and Address Organization Details Last Updated DateTime 5 157.48 cm 35 kg/m2 70824.3 g 98 % 98 % 82 /min 97.7 [degF] 136/84 mm[Hg] [employer] 5 08:21:14 Date Recorded Body height Body mass index (BMI) Body weight Body temperature Heart rate Oxygen saturation Oxygen saturation in Arterial blood by Pulse oximetry Systolic And Diastolic Provider Name and Address Organization Details Last Updated DateTime 5 157.48 cm 34.5 kg/m2 09761.4 7 g 98.1 [degF] 79 /min 98 % 98 % 116/80 mm[Hg] Tosha Farris [employer] 5 08:01:00 Date Recorded Body height Body mass index (BMI) Body weight Body temperature Heart rate Oxygen saturation Oxygen saturation in Arterial blood by Pulse oximetry Systolic And Diastolic Provider Name and Address Organization Details Last Updated DateTime 5 157.48 cm 32.7 kg/m2 38208.0 3 g 97.6 [degF] 72 /min 99 % 99 % 116/78 mm[Hg] [employer] 5 08:04:34 Social History Question Answer Notes LastModified by Organizat ion Details LastModified Time Tobacco Smoking Status Former Smoker [employer] 01/21/2025 09:59:41 Do You Have An Advance [...] Information not available 01/21/2025 What Type Of Peer Financial Counselor Do You Use? None Information not available [...] Or The Highest Degree You Have Received? [id number] Information not available 01/21/2025 Have There Been Any Changes To Your Family Or Social Situation? No Information no t available 01/21/2025 When Did You Quit Smoking? 11-15yearssinkristie dumont Information not available 01/21/2025 Are There Any Guns Present In Your Home? No Information not available 01/21/2025 Which Of Your Hands Is Dominant? Right Information not available 01/21/2025 Do You Have A Medical Power Of Kitchen Lead? No Information not available 01/21/2025 What Was [...] anxious, or unable to sleep at night)? [id number] Information not available 01/21/2025 Do you have [...] available 2024 09:59:39 Medical History Condition Response Arthritis Y High Cholesterol Y Rheumatoid Arthritis Y Diabetes Y Gynecological History Statement/Question Response Menses Monthly [...] preservative free, adsorbed 7 completed Not Available [facility] 05/13/2025 07:51:35 COVID-19, mRNA, LNP-S, PF, 30 mcg/0.3 mL dose 1 completed Not Available [facility] 05/13/2025 07:51:35 COVID-19, mRNA, LNP-S, PF, 30 mcg/0.3 mL dose 1 completed Not Available [facility] 05/13/2025 07:51:35 Past Encounters Encounter ID Performer Location Encounter Start Date Encounter Closed Date Diagnosis/Indication Diagnosis SNOMED-CT Code Diagnosis ICD10 Code Diagnosis IMO Codes Diagnosis Note [id number] JACKIE Pierre [address] [address] 01/21/2025 09:44:14 01/21/2025 10:34:26 Type 2 diabetes mellitus 49890075 E11.9 Body mass index 30+ - obesity 095135980 Z68.37 Long-term drug therapy 308285022 Z79.899 Hyperlipidemia 46016225 E78.5 Essential hypertension 31469421 I10 Rheumatoid arthritis 698 06265 M06.9 [id number] JACKIE Pierre [address] [address] 02/18/2025 07:51:16 02/18/2025 08:38:17 Type 2 diabetes mellitus 06270887 E11.9 Long-term drug therapy 779663591 Z79.899 Hyperlipidemia 95887714 E78.5 Essential hypertension 86986105 I10 Rheumatoid arthritis 698 03468 M06.9 [id number] JACKIE Pierre [address] [address] 03/18/2025 08:11:41 03/18/2025 08:33:50 Type 2 diabetes mellitus 18655279 E11.9 Increase Ozempic 0.5 mg weekly. RTC 1 month. [id number] JACKIE Pierre [address] [address] 04/15/2025 07:52:01 04/15/2025 08:19:23 Type 2 diabetes mellitus 57853456 E11.9 Increase Ozempic 1 mg weekly [id number] JACKIE Pierre [address] [address] 05/13/2025 07:51:08 05/13/2025 08:25:23 Type 2 diabetes mellitus 21031796 E11.9 Health Concerns Section Related Observation LastModified by Organization Detai ls LastModified Time None Recorded Concern Status LastModified by Organization Details LastModified Time None Recorded Advance Directives Directive N: Payers Insurance Date Sequence Insurance Name Policy Number Policy Pedroza Covered Member ID Pedroza Member ID Guarantor Name 05/10/2025 [place] [employer] [facility] Alethea Alanis [id number] Alethea Alanis 05/10/2025 2 [place] [id number] Alethea Alanis [id number] Alethea Alanis 05/10/2025 1 [place] Alethea Alanis [id number] Alethea Alanis Notes Date Note Type Note Provider Name and Address Organization Details Recorded Time 01/21/2025 text/html ROS as noted in the [facility] Patient presents to establish care. WOuld like help with weight loss. JACKIE Pierre [address] [place] [address], [address], [employer] 01/22/2025 13:25:13 02/18/2025 text/html ROS as noted in the [facility] Patient presents for followup. She has lost 11 pounds with Adipex. She is diabetic and wonders if she would qualify for a weight loss shot. JACKIE Pierre [address] [place], [address], [employer] 02/18/2025 10:39:07 03/18/2025 text/html ROS as noted in the [facility] Patient presents to followup on Ozempic. States she had some nausea, constipation initially but it is improving and she is tolerating the medicine well. JACKIE Pierre [address] [place] [address], [phone], [employer] 03/18/2025 11:49:17 04/15/2025 text/html ROS as noted in the [facility] Patient presents to followup on Ozempic. Tolerating it well. Nausea and constipation have resolved. HgA1c 7.2 last week at another appointment. JACKIE Pierre [address] [place], [address], [employer] 04/15/2025 09:57:30 05/13/2025 text/html ROS as noted in the [facility] Patient presents to followup on Ozempic. Tolerating it well. Nausea and constipation have resolved. She has lost 9 pounds. JACKIE Pierre [address] [place] [address], [address], [facility] 05/13/2025 10:03:38 OBGyn Episode No OBEpisode recorded.
--- OUTSIDE RECORDS SUMMARY | 2025-08-07 07:59 | XMS_ITS | Clinical Summary ---
Author Organization [facility] Address [address] [place] [address] Care Team Providers Care Inside Sales Trainer Name Role Phone Ernestine Mcelroy APRN Primary [...] SCREENING 01/23/2020 INFLUENZA VACCINE 05/03/2025 Insurance [facility] PPO Member Subscriber Plan / Payer (Ef fective 2019-Present) Name:Alethea Alanis Relation to Subscriber:Self Name:Alethea Alanis Payer ID:[id number] (NAIC) Type:Not on file Address: [facility] [id number] [place] [id number] Care Teams Inside Sales Trainer Relationship Specialty Start Date End Date Ernestine Mcelroy APRN PCP - General Internal Medicine 12/22/18
--- OUTSIDE RECORDS SUMMARY | 2025-08-07 07:59 | XMS_ITS | Clinical Summary ---
Author Organization [facility] Address [address] [facility] [address] [place] [address] Phone Care Team Providers Care Heel Lift Gouger Name Role Phone Lloyd Muhammad MD Unavailable [ ] Conditions or Problems Problem Name Problem Code Onset Date Status Entry Date Provider Comment Standard Description Annotate Other obesity due to excess calories 111303047 (SNOMED CT) 03/10 Active 03/10 Elbatejinder Franco Simple obesity Infection, skin and soft tissue 16383990 (SNOMED CT) 03/10 Active 03/10 Estee Edelen Soft tissue infection Acute osteomyeliti s, right index finger 22056648 (SNOMED CT) 03/10 Active 03/10 Estee Edelen Acute osteomyelitis of hand Cigarette smoker 03122699 (SNOMED CT) 03/10 Active 03/10 Esete Edelen Cigarette smoker Cellulitis of right finger L03.011 (ICD-10-CM) 03/10 Active 03/10 Estee Edelen Cellulitis of right finger Drug rash 70526660 (SNOMED CT) 01/19 Active 01/19 Jennifer Molina RN Eruption caused by drug Psoriatic Arthritis 13864144 (SNOMED CT) 12/19 Active 12/19 Molly Hitchcock Psoriasis with arthropathy Cellulitis of left finger L03.012 (ICD-10-CM) 12/18 Active 12/18 Sole Adán Cellulitis of left finger Infective (teno)synovi tis, right hand/finger (document bacterial agent) M65.141 (ICD-10-CM) 12/18 Inactive 12/18 Jennifer Kaz Other infective (teno)synoviti s, right hand Problem excluded fro m report: Trigger finger of right middle finger 0669599 (SNOMED CT) 12/18 Inactive 12/18 Jennifer Kaz Acquired trigger finger Problem excluded fro m report: Trigger finger of left middle finger 6458554 (SNOMED CT) 12/20 Active 12/20 Jennifer Kaz Acquired trigger finger Infective (teno)synovi tis, left hand/finger 162587388 (SNOMED CT) 12/20 Active 12/20 Jennifer Kaz Synovitis/teno synovitis - hand Psoriasis, hands 9505739 (SNOMED CT) 12/19 Inactive 12/19 Fabrizio Sue [...] hand Trigger finger of right middle finger 1418881 (SNOMED CT) 12/18 Removed 12/18 Sole Adán Acquired trigger finger Medications Medication Instructions Start Date Stop Date Generic Name ND Provider AMOXICILLIN-POT CLAVULANATE 875-125 MG TABS Take 1 tablet by mouth twice a day amoxicillin-pot clavulanate 16904218517 Lloyd Muhammad MD MELOXICAM 15 MG TABS by mouth once a day meloxicam 27847519134 Tasia January GABAPENTIN 100 MG CAPS by mouth once a day gabapentin 77275699986 Tasia January AMOXICILLIN-POT CLAVULANATE 875-125 MG TABS Take 1 tablet by mouth twice a day amoxicillin-pot clavulanate 52753972466 Lloyd Muhammad MD GABAPENTIN 100 MG CAPS by mouth once a day gabapentin 01658339781 Bonnie Flores MELOXICAM 15 MG TABS by mouth once a day meloxicam 84039027392 Bonnie Flores ESCITALOPRAM OXALATE 10 MG TABS by mouth once a day escitalopram oxalate 16675223428 Bonnie Flores Super B Maxi Complex unspecified unspecified by mouth once a day vitamin b complex-folic acid 00950737997 Bonnie Flores PRAVACHOL 20 MG ORAL TABLET Take 1 by mouth once a day PRAVACHOL 20 MG ORAL TABLET Elba Franco ALL DAY ALLERGY 10 MG ORAL CAPSULE by mouth once a day ALL DAY ALLERGY 10 MG ORAL CAPSULE Elba Franco METFORMIN HCL 500 MG TABS Take 1 by mouth once a day metformin 21074874701 Elba Franco CALCIUM 600+D3 600-200 MG-UNIT ORAL TABLET Take by mouth twice a day CALCIUM 600+D3 600-200 MG-UNIT ORAL TABLET Elba Franco MELOXICAM 15 MG TABS Take 1 by mouth once a day meloxicam 33265025641 Elba Franco SUPER B-COMPLEX CAPS Take by mouth twice a day B [id number] Elba Franco STELARA 45 MG/0.5ML SOLN 1 every three months ustekinumab 28579045777 Elba Franco SULFASALAZINE 500 MG TABS by mouth once a day sulfasalazine 96481877099 Elba Franco CETIRIZINE HCL 10 MG TABS 1 once a day cetirizine 32819608883 Elba Franco LEXAPRO 10 MG TABS 1 once a day escitalopram oxalate 70557302430 Elba Franco LOSARTAN POTASSIUM 25 MG TABS 1 once a day losartan 60012747209 Elba Franco METFORMIN HCL 850 MG TABS 1 twice a day metformin 57226862448 Elba Franco PRAVASTATIN SODIUM 20 MG TABS 1 once a day pravastatin 21416679493 Elba Franco CALCIUM 600+D3 600-200 MG-UNIT ORAL TABLET Take by mouth twice a day CALCIUM CARB-CHOLECALCIF ROGELIO 13562882314 Fabrizio Sue MD SUPER B-COMPLEX CAPS Take by mouth twice a day B [id number] 11492112250 Fabrizio Sue MD PRAVACHOL 20 MG ORAL TABLET Take one by mouth daily PRAVASTATIN SODIUM 23788732639 Fabrizio Sue MD METFORMIN HCL 500 MG TABS Take one by mouth daily METFORMIN HCL 60320130269 Fabrizio Sue MD MELOXICAM 15 MG TABS Take one by mouth daily MELOXICAM 29777730628 Fabrizio Sue MD STELARA 45 MG/0.5ML SOLN 1 shot every thrre months USTEKINUMAB 39272992053 Fabrizio Sue MD TYGACIL SOLR 50mg IV Bid TIGECYCLINE SOLR 24561900038 Zeenat Cabrera RN TYGACIL SOLR 50mg IV Bid TIGECYCLINE SOLR 90122713267 Jennifer Molina RN CEFTRIAXONE SODIUM (IV) SOLR Rocephin 2G IV q24hrs OPAT CEFTRIAXONE SODIUM SOLR 11601445122 Jennifer Molina RN CUBICIN SOLUTION RECONSTITUTED Cubicin 500mg IV q24hrs OPAT DAPTOMYCIN SOLR 83323916894 Jennifer Molina RN FLUCONAZOLE 200 MG TABS one tablet daily FLUCONAZOLE 11753584606 Fabrizio Sue MD CUBICIN SOLUTION RECONSTITUTED Cubicin 500mg IV q24hrs OPAT DAPTOMYCIN SOLR 16577932939 Karina Welch RN CEFTRIAXONE SODIUM (IV) SOLR Rocephin 2G IV q24hrs OPAT CEFTRIAXONE SODIUM SOLR 07635706533 Karina Welch RN SULFASALAZINE 500 MG TABS by mouth daily SULFASALAZINE 81860981932 Gasper K ALL DAY ALLERGY 10 MG ORAL CAPSULE by mouth daily CETIRIZINE HCL 72522178530 Gasper K Medications Administered No information available. Allergies, Adverse Reactions, Alerts No information available. Results Date Name Value Unit Range Flag Description External Other: Patient courtney al update - Email Push, [facility] ... PAT E-MAIL [email or web address] patient's e-mail address External Other: Patient courtney matute update - AccountStatus, [facility] I ... 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 Dietary management education, guidance, and counseling [...] Name Date Entry Date CPT-sl STAT Labs [id number] CBC with Differential 2018 CPT-84644 C- reactive protein CPT-CLR Central Line Removal CPT-DC Discontinue IV antibiotics 2 CPT-CLR Central Line Removal CPT-denzel Change IV antibiotics 01/22 CPT-J3243 Tigecycline CPT-denzel Change IV antibiotics 01/19 CPT-64464 ECG ROUTINE ECG W/LEAST 12 LDS W/I&R 2018 CPT-ca Continue IV antibiotics 2018 CPT-ca Continue IV antibiotics 2018 CPT-ca Continue IV antibiotics 2018 CPT-ca Continue IV antibiotics 2018 CPT-24260 CMP CPT-34716 US, Abdomen RUQ CPT-33822 CMP [id number] CBC with Differential 2018 CPT-06213 C- reactive protein [id number], [id number] CPK CPT-velia New IV antibiotic CPT-07083 PICC Line Insertion CPT- stat weekly Stat [...]
--- NOTE | 2025-08-07 08:00 | US_ITS ---
PROCEDURE INFORMATION: Exam: US Right Breast, Complete Exam date and time: 08/07/2025 7:57 AM Age: 59 years old Clinical indication: Callback from right breast screening. Diagnostic mammogram demonstrated persistent masses in the right upper outer quadrant. TECHNIQUE: Imaging protocol: Complete ultrasound of all four quadrants of the right breast and the retroareolar regions, including ultrasound of the axilla when performed. This study was interpreted in real time. The patient received the results. COMPARISON: MG MM DIG MAMM DX UNILAT RT CAD 07/29/2025 2:03 PM FINDINGS: ULTRASOUND: Breast ultrasound findings: Ultrasound of the right breast is performed. In the right breast 10 o'clock axis, 4 cm from the nipple, there is a benign-appearing cyst that measures 0.5 x 0.3 x 0.2 cm. In the right breast 10 o'clock axis, 7 cm from the nipple there is a hyperechoic oval circumscribed mass that may represent fat necrosis measuring 0.4 x 0.3 x 0.4 cm. In the right breast 10 o'clock axis, 8 cm from the nipple, there is a minimally complicated cyst measures 0.5 x 0.6 x 0.4 cm. There is no shadowing or distortion. No dominant solid mass, skin thickening, or axillary adenopathy is seen. IMPRESSION: Probably benign findings in the right breast 10 o'clock axis from 4-8 cm from the nipple that correlate to mammogram findings. Six-month follow-up right breast mammogram and ultrasound recommended for short-term surveillance. ASSESSMENT: BI-RADS Category 3: Probably benign.
== END 2025-08-07 23:59 | disposition home or self-care (01) ==
LOC: RAD 07:56
PROVIDERS: PCP Nurse Practitioner Family; Visit Provider Nurse Practitioner Family
DX: N63.11 Unspecified lump in the right breast, upper outer quadrant (principal)
CPT/HCPCS: 76641

== ENCOUNTER 2025-10-01 09:50 | Outpatient (CLI) | payer MEDICARE, BC, SELFPAY ==
[2025-10-01 14:06] LABS: Hematocrit 37.8 % (37.0-47.0); Hemoglobin 12.5 g/dL (12.2-16.2); Immature Granulocytes % 0.3 %; Mean Corpuscular HGB Conc 33.1 g/dL (31.8-35.4); Mean Corpuscular Hemoglobin 30.1 pg (27.0-31.2); Mean Corpuscular Volume 91.1 fl (81-99); Nucleated Red Blood Cells % 0 %; Platelet Count 358 K/mm3 (142-424); Red Blood Count 4.15 M/mm3 (4.20-5.40); Red Cell Distribution Width-SD 45.1 fL; White Blood Count 9.5 K/mm3 (4.8-10.8)
[2025-10-01 14:31] LABS: Hemoglobin A1C 5.1 % (4.0-6.0)
[2025-10-01 14:47] LABS: Alanine Aminotransferase 14 U/L (12-78); Albumin Level 5.1 g/dl (3.5-5.0); Albumin/Globulin Ratio 2.0 (1.1-1.8); Alkaline Phosphatase 53 U/L (38-126); Anion Gap 14.4 mEq/L (5-15); Aspartate Amino Transferase 27 U/L (14-36); Bilirubin,Total 0.7 mg/dl (0.2-1.3); Blood Urea Nitrogen 15 mg/dl (7-17); Calcium 10.1 mg/dl (8.4-10.2); Carbon Dioxide 25 mmol/L (22.0-30.0); Chloride 104 mmol/L (98-107); Cholesterol 164 mg/dl (140-200); Creatinine,Serum 0.70 mg/dl (0.52-1.04); Estimated Glomerular Filt Rate 85 ml/min (>60); GFR (African American) 103 ML/MIN (>60); Globulin 2.6 g/dL (1.3-3.2); Glucose 76 mg/dl (74-100); HDL Cholesterol 57 mg/dl (40-60); Potassium 4.4 mmoL/L (3.5-5.1); Sodium 139 mmol/L (136-145); Total Protein,Serum 7.7 g/dl (6.3-8.2); Triglycerides 192 mg/dl (30-150)
[2025-10-01 15:18] LABS: Thyroid Stimulating Hormone 0.76 uIU/mL (0.465-4.68)
[2025-10-01 15:37] LABS: Vitamin B12 803 pg/mL (239-931)
--- OUTSIDE RECORDS SUMMARY | 2025-10-02 09:36 | XMS_ITS | Clinical Summary ---
Author Organization [facility] Address [address] [place] [address] Phone Care Team Providers Care Technical Specialist Name Role Phone Lloyd Muhammad MD [ ] Conditions or Problems Problem Name Problem Code Onset Date Status Entry Date Provider Comment Standard Description Annotate Other obesity due to excess calories 473025798 (SNOMED CT) 03/10 Active 03/10 Elba Salvador Simple obesity Infection, skin and soft tissue 95549082 (SNOMED CT) 03/10 Active 03/10 Estee Edelen Soft tissue infection Acute osteomyeliti s, right index finger 65305749 (SNOMED CT) 03/10 Active 03/10 Estee Edelen Acute osteomyelitis of hand Cigarette smoker 57519737 (SNOMED CT) 03/10 Active 03/10 Estee Edelen Cigarette smoker Cellulitis of right finger L03.011 (ICD-10-CM) 03/10 Active 03/10 Estee Edelen Cellulitis of right finger Drug rash 65035647 (SNOMED CT) 01/19 Active 01/19 Jennifer Molina RN Eruption caused by drug Psoriatic Arthritis 57854219 (SNOMED CT) 12/19 Active 12/19 Molly W Psoriasis with arthropathy Cellulitis of left finger L03.012 (ICD-10-CM) 12/18 Active 12/18 Sole Adán Cellulitis of left finger Infective (teno)synovi tis, right hand/finger (document bacterial agent) M65.141 (ICD-10-CM) 12/18 Inactive 12/18 Jennifer Kaz Other infective (teno)synoviti s, right hand Problem excluded fro m report: Trigger finger of right middle finger 5000446 (SNOMED CT) 12/18 Inactive 12/18 Jennifer Kaz Acquired trigger finger Problem excluded fro m report: Trigger finger of left middle finger 9492883 (SNOMED CT) 12/20 Active 12/20 Jennifer Kaz Acquired trigger finger Infective (teno)synovi tis, left hand/finger 576708053 (SNOMED CT) 12/20 Active 12/20 Jennifer Kaz Synovitis/teno synovitis - hand Psoriasis, hands 6917112 (SNOMED CT) 12/19 Inactive 12/19 Fabrizio Sue [...] hand Trigger finger of right middle finger 8977971 (SNOMED CT) 12/18 Removed 12/18 Sole Adán Acquired trigger finger Medications Medication Instructions Start Date Stop Date Generic Name NDC Provider AMOXICILLIN-POT CLAVULANATE 875-125 MG TABS Take 1 tablet by mouth twice a day amoxicillin-pot clavulanate 74700359497 Lloyd Muhammad MD MELOXICAM 15 MG TABS by mouth once a day meloxicam 42391164988 Tasia January GABAPENTIN 100 MG CAPS by mouth once a day gabapentin 60926231814 Tasia January AMOXICILLIN-POT CLAVULANATE 875-125 MG TABS Take 1 tablet by mouth twice a day amoxicillin-pot clavulanate 31744578553 Lloyd Muhammad MD GABAPENTIN 100 MG CAPS by mouth once a day gabapentin 02112978680 Bonnie Flores MELOXICAM 15 MG TABS by mouth once a day meloxicam 47109782749 Bonnie Flores ESCITALOPRAM OXALATE 10 MG TABS by mouth once a day escitalopram oxalate 13594597183 Bonnie Flores Super B Maxi Complex unspecified unspecified by mouth once a day vitamin b complex-folic acid 19930419053 Bonnie Flores PRAVACHOL 20 MG ORAL TABLET Take 1 by mouth once a day PRAVACHOL 20 MG ORAL TABLET Elba Franco ALL DAY ALLERGY 10 MG ORAL CAPSULE by mouth once a day ALL DAY ALLERGY 10 MG ORAL CAPSULE Elba Franco METFORMIN HCL 500 MG TABS Take 1 by mouth once a day metformin 95464956159 Elba Franco CALCIUM 600+D3 600-200 MG-UNIT ORAL TABLET Take by mouth twice a day CALCIUM 600+D3 600-200 MG-UNIT ORAL TABLET Elba Franco MELOXICAM 15 MG TABS Take 1 by mouth once a day meloxicam 22166896226 Elba Franco SUPER B-COMPLEX CAPS Take by mouth twice a day B [id number] A Elba Franco STELARA 45 MG/0.5ML SOLN 1 every three months ustekinumab 70155582468 Elba Franco SULFASALAZINE 500 MG TABS by mouth once a day sulfasalazine 54179591310 Elba Franco CETIRIZINE HCL 10 MG TABS 1 once a day cetirizine 44201977546 Elba Franco LEXAPRO 10 MG TABS 1 once a day escitalopram oxalate 71741567511 Elba Franco LOSARTAN POTASSIUM 25 MG TABS 1 once a day losartan 41359637298 Elba Franco METFORMIN HCL 850 MG TABS 1 twice a day metformin 79027339226 Elba Franco PRAVASTATIN SODIUM 20 MG TABS 1 once a day pravastatin 18382238766 Elba Franco CALCIUM 600+D3 600-200 MG-UNIT ORAL TABLET Take by mouth twice a day CALCIUM CARB-CHOLECALCIF ROGELIO 02757796317 Fabrizio Sue MD SUPER B-COMPLEX CAPS Take by mouth twice a day B [id number] A 68654387234 Fabrizio Sue MD PRAVACHOL 20 MG ORAL TABLET Take one by mouth daily PRAVASTATIN SODIUM 87400474671 Fabrizio Sue MD METFORMIN HCL 500 MG TABS Take one by mouth daily METFORMIN HCL 71482211607 Fabrizio Sue MD MELOXICAM 15 MG TABS Take one by mouth daily MELOXICAM 15315033554 Fabrizio Sue MD STELARA 45 MG/0.5ML SOLN 1 shot every thrre months USTEKINUMAB 11796417744 Fabrizio Sue MD TYGACIL SOLR 50mg IV Bid TIGECYCLINE SOLR 36249249134 Zeenat Cabrera RN TYGACIL SOLR 50mg IV Bid TIGECYCLINE SOLR 26884986093 Jennifer Molina RN CEFTRIAXONE SODIUM (IV) SOLR Rocephin 2G IV q24hrs OPAT CEFTRIAXONE SODIUM SOLR 34198497991 Jennifer Molina RN CUBICIN SOLUTION RECONSTITUTED Cubicin 500mg IV q24hrs OPAT DAPTOMYCIN SOLR 00482735656 Jennifer Molina RN FLUCONAZOLE 200 MG TABS one tablet daily FLUCONAZOLE 76460907493 Fabrizio Sue MD CUBICIN SOLUTION RECONSTITUTED Cubicin 500mg IV q24hrs OPAT DAPTOMYCIN SOLR 07101893624 Karina Welch RN CEFTRIAXONE SODIUM (IV) SOLR Rocephin 2G IV q24hrs OPAT CEFTRIAXONE SODIUM SOLR 01321917431 Karina Welch RN SULFASALAZINE 500 MG TABS by mouth daily SULFASALAZINE 53688246502 Gasper K ALL DAY ALLERGY 10 MG ORAL CAPSULE by mouth daily CETIRIZINE HCL 32843627766 Gasper K Medications Administered No information available. Allergies, Adverse Reactions, Alerts No information available. Results Date Name Value Unit Range Flag Description External Other: Patient port al update - Email Push, [facility] PAT E-MAIL [email or web address] patient's e-mail address External Other: Patient port al update - AccountStatus, [facility] [place] [facility] ... 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 Dietary management education, guidance, and counseling [...] Name Date Entry Date CPT-sl STAT Labs [id number] CBC with Differential 2018 CPT-10151 C- reactive protein CPT-CLR Central Line Removal CPT-DC Discontinue IV antibiotics 2 CPT-CLR Central Line Removal CPT-denzel Change IV antibiotics 01/22 CPT-J3243 Tigecycline CPT-denzel Change IV antibiotics 01/19 CPT-05756 ECG ROUTINE ECG W/LEAST 12 LDS W/I&R 2018 CPT-ca Continue IV antibiotics 2018 CPT-ca Continue IV antibiotics 2018 CPT-ca Continue IV antibiotics 2018 CPT-ca Continue IV antibiotics 2018 CPT-79299 CMP CPT-30952 US, Abdomen RUQ CPT-99803 CMP [id number] CBC with Differential 2018 CPT-89397 C- reactive protein [id number], [id number] CPK CPT-velia New IV antibiotic CPT-78852 PICC Line Insertion CPT- stat weekly Stat [...]
--- OUTSIDE RECORDS SUMMARY | 2025-10-02 09:37 | XMS_ITS | Clinical Summary ---
Author Organization [facility] Address [address] [place] [address] Care Team Providers Care Shipping And Receiving Associate Name Role Phone Ernestnie Mcelroy APRN Primary Care Provider Allergies No [...] Annual Gynecologic Pelvic and Breast Exam 1964 TDAP/TD VACCINES (1 - Tdap) 12/06/1996 12/05/1996 MAMMOGRAM 2004 COLOGUARD 2009 COLON CANCER SCREENING 5 YEAR SIGMOIDOSCOPY 2009 COLONOSCOPY 2009 [address] CANCER SCREENING 2009 CT COLONOGRAPHY 2009 FECAL OCCULT BLOOD TEST 2009 FIT Testing (1 year) 2009 Pneumococcal Vaccine 50+ (1 of 1 - PCV) 2014 ZOSTER VACCINE (1 of 2) 2014 ANNUAL PHYSICAL 01/23/2020 HEPATITIS C SCREENING 01/23/2020 INFLUENZA VACCINE 05/03/2025 Insurance [facility] P[facility] Member Subscriber Plan / Payer (Ef fective 2019-Present) Name:Alethea Alanis Relation to Subscriber:Self Name:Alethea Alanis Payer ID:[id number] (NAIC) Type:Not on file Address: [facility] [address] [place] [id number] Care Teams Shipping And Receiving Associate Relationship Specialty Start Date End Date Ernestine Mcelroy APRN PCP - General Internal Medicine 12/22/18
== END 2025-10-01 23:59 | disposition home or self-care (01) ==
LOC: LAB.DROPOF 10-02 09:34
PROVIDERS: PCP Nurse Practitioner Family; Visit Provider Nurse Practitioner Family
DX: E78.5 Hyperlipidemia, unspecified (principal); E11.9 Type 2 diabetes mellitus without complications; D50.8 Other iron deficiency anemias
CPT/HCPCS: 80053; 80061; 82043; 82570; 82607; 83036; 84443; 85025